=== PATIENT | female | born 1965 | race Caucasian/White ===

== ENCOUNTER 2017-08-14 16:37 | Inpatient (IN) | payer OTHER ==
[2017-08-14 17:10] LABS: ADD MAN DIFF? NO
[2017-08-14 17:18] LABS: BASO # 0.1 x10^3/uL (0.0-0.2); BASO % 1 % (0-3); EOS # 0.1 x10^3/uL (0.0-0.7); EOS % 1 % (0-3); HEMATOCRIT 39.6 % (36.0-47.0); HEMOGLOBIN 13.2 g/dL (12.0-15.5); LYMPH # 1.8 x10^3/uL (1.0-4.8); LYMPH % 14 % (24-48); MEAN CORPUSCULAR HEMOGLOBIN 29 pg (25-35); MEAN CORPUSCULAR HGB CONC 33 g/dL (31-37); MEAN CORPUSCULAR VOLUME 87 fL (79-100); MONO # 0.7 x10^3/uL (0.0-1.1); MONO % 5 % (0-9); NEUT # 10.6 x10^3uL (1.8-7.7); NEUT % 80 % (31-73); RED BLOOD COUNT 4.53 x10^6/uL (3.50-5.40); RED CELL DISTRIBUTION WIDTH 13.7 % (11.5-14.5); WHITE BLOOD COUNT 13.2 x10^3/uL (4.0-11.0)
[2017-08-14 17:20] LABS: BILIRUBIN,URINE SMALL (NEG); CLARITY,URINE CLEAR; COLOR,URINE AMBER; GLUCOSE,URINE NEGATIVE (NEG); NITRITE,URINE NEGATIVE (NEG); PH,URINE 5.5; PROTEIN,URINE 30 mg/dL (NEG-TRACE)
[2017-08-14 17:26] LABS: PLATELET COUNT 271 x10^3/uL (140-400)
[2017-08-14 17:30] LABS: ANION GAP 10 (6-14); BLOOD UREA NITROGEN 15 mg/dL (7-20); BUN/CREATININE RATIO 19 (6-20); CALCIUM 9.7 mg/dL (8.5-10.1); CARBON DIOXIDE 30 mmol/L (21-32); CHLORIDE 104 mmol/L (98-107); CREATININE 0.8 mg/dL (0.6-1.0); GFR 75.3; GLUCOSE 91 mg/dL (70-99); POTASSIUM 3.4 mmol/L (3.5-5.1); SODIUM 144 mmol/L (136-145)
[2017-08-14 17:36] LABS: ALBUMIN/GLOBULIN RATIO 1.1 (1.0-1.7); ALK PHOS 109 U/L (46-116); ALT (SGPT) 14 U/L (14-59); AST (SGOT) 11 U/L (15-37); BACTERIA,URINE MODERATE /HPF (0-FEW); HYALINE CASTS, URINE MODERATE /HPF; LIPASE 58 U/L (73-393); RBC,URINE 0 /HPF (0-2); SQUAMOUS EPITHELIAL CELL,UR MOD /LPF; TOTAL BILIRUBIN 0.6 mg/dL (0.2-1.0); TOTAL PROTEIN 7.7 g/dL (6.4-8.2); WBC,URINE >40 /HPF (0-4)
[2017-08-14 17:39] LABS: TROPONINI < 0.017 ng/mL (0.000-0.055)
[2017-08-14 17:54] LABS: INR 1.1 (0.8-1.1); PROTHROMBIN TIME PATIENT 13.5 SEC (11.7-14.0)
[2017-08-14] MEDS: ONDANSETRON PF 4 MG/2 ML VIAL. IV (18:30)
[2017-08-14] MEDS: IV NORMAL SALINE 1000ML BAG 1,000 ML IV ×2 (18:33→22:04)
[2017-08-14] MEDS: fentaNYL PF VIAL 100 MCG/2 ML VIAL IV ×3 (18:38→23:28)
[2017-08-14] MEDS ORDERED: hydrALAZINE 20 MG/ML VIAL. IVP (19:30)
[2017-08-14] MEDS ORDERED: POTASSIUM CHLORIDE 20MEQ 50 ML IV (19:30)
[2017-08-14] MEDS ORDERED: DOCUSATE SODIUM 100 MG CAPSULE. PO (19:30)
[2017-08-14] MEDS: POTASSIUM CHLORIDE 10 MEQ in IV NORMAL SALINE 100ML 100 ML IV ×2 (21:00→22:04)
[2017-08-14] MEDS: IPRATRPIUM/ALBUTEROL 0.5/2.5MG 3 ML NEBU. NEB (21:40)
[2017-08-14] MEDS: ATORVASTATIN CALCIUM 20 MG TABLET PO (22:20)
[2017-08-14] MEDS: ACETAMINOPHEN 325 MG TABLET. PO (22:20)
[2017-08-14] MEDS: FLUoxetine HCL 20 MG CAPSULE PO (22:20)
[2017-08-14] MEDS: clonazePAM 0.5 MG TABLET PO (22:21)
[2017-08-14] MEDS: PANTOPRAZOLE IV PUSH 40 MG VIAL. IVP (23:26)
[2017-08-14] MEDS: METOPROLOL TART IMMED RELEASE 25 MG TABLET. PO (23:27)
[2017-08-14] MEDS: DEXAMETHASONE 0.1% OPHTH SOLUTION 5ML BOTTLE. OU (23:28)
[2017-08-14] MEDS: MOXIFLOXACIN 0.5% OPHTH SOLUTION 3ML BOTTLE. OU (23:28)
[2017-08-14] MEDS: KETOROLAC TROMETHAMINE 0.5% OPHTH SOLUTION 3ML BOTTLE. OU (23:28)
[2017-08-14] MEDS: CYCLOBENZAPRINE 10 MG TABLET. PO (23:29)
[2017-08-15 04:43] LABS: ADD MAN DIFF? NO
[2017-08-15 04:56] LABS: BASO # 0.1 x10^3/uL (0.0-0.2); BASO % 1 % (0-3); EOS # 0.1 x10^3/uL (0.0-0.7); EOS % 1 % (0-3); HEMATOCRIT 31.5 % (36.0-47.0); HEMOGLOBIN 10.8 g/dL (12.0-15.5); LYMPH # 2.9 x10^3/uL (1.0-4.8); LYMPH % 33 % (24-48); MEAN CORPUSCULAR HEMOGLOBIN 30 pg (25-35); MEAN CORPUSCULAR HGB CONC 34 g/dL (31-37); MEAN CORPUSCULAR VOLUME 88 fL (79-100); MONO # 0.5 x10^3/uL (0.0-1.1); MONO % 6 % (0-9); NEUT # 5.1 x10^3uL (1.8-7.7); NEUT % 59 % (31-73); PLATELET COUNT 194 x10^3/uL (140-400); RED BLOOD COUNT 3.57 x10^6/uL (3.50-5.40); RED CELL DISTRIBUTION WIDTH 13.4 % (11.5-14.5); WHITE BLOOD COUNT 8.7 x10^3/uL (4.0-11.0)
[2017-08-15 05:48] LABS: ANION GAP 6 (6-14); BLOOD UREA NITROGEN 13 mg/dL (7-20); CALCIUM 8.5 mg/dL (8.5-10.1); CARBON DIOXIDE 30 mmol/L (21-32); CHLORIDE 108 mmol/L (98-107); CREATININE 0.7 mg/dL (0.6-1.0); GFR 87.9; GLUCOSE 89 mg/dL (70-99); POTASSIUM 3.7 mmol/L (3.5-5.1); SODIUM 144 mmol/L (136-145)
[2017-08-15] MEDS: SUCRALFATE 1 GM TABLET. PO ×4 (07:30→21:01)
[2017-08-15] MEDS: IPRATRPIUM/ALBUTEROL 0.5/2.5MG 3 ML NEBU. NEB ×4 (07:50→20:00)
[2017-08-15] MEDS: BUDESONIDE 0.5 MG/2 ML NEBU. NEB ×2 (07:50→20:00)
[2017-08-15] MEDS: IV NORMAL SALINE 1000ML BAG 1,000 ML IV (08:50)
[2017-08-15] MEDS ORDERED: NON FORMULARY ITEM (Albuterol Sulfate (Ventolin Hfa Inhaler) 2 PUFF) INH (09:00)
[2017-08-15] MEDS ORDERED: MOMETASONE FUROATE IH (09:00)
[2017-08-15] MEDS: clonazePAM 0.5 MG TABLET PO ×2 (09:16→21:01)
[2017-08-15] MEDS: CYCLOBENZAPRINE 10 MG TABLET. PO ×3 (09:17→21:01)
[2017-08-15] MEDS: METOPROLOL TART IMMED RELEASE 25 MG TABLET. PO ×2 (09:18→21:02)
[2017-08-15] MEDS: LISINOPRIL 20 MG TABLET PO (09:19)
[2017-08-15] MEDS: PANTOPRAZOLE IV PUSH 40 MG VIAL. IVP (09:20)
[2017-08-15] MEDS: NICOTINE 7MG PATCH. TD (09:20)
[2017-08-15] MEDS: fentaNYL PF VIAL 100 MCG/2 ML VIAL IV ×3 (09:23→22:40)
[2017-08-15] MEDS: DEXAMETHASONE 0.1% OPHTH SOLUTION 5ML BOTTLE. OU ×3 (09:40→21:01)
[2017-08-15] MEDS: MOXIFLOXACIN 0.5% OPHTH SOLUTION 3ML BOTTLE. OU ×3 (09:40→21:01)
[2017-08-15] MEDS: KETOROLAC TROMETHAMINE 0.5% OPHTH SOLUTION 3ML BOTTLE. OU ×4 (09:40→21:01)
[2017-08-15] MEDS: HYDROcodone/APAP 5/325MG 1 TAB TABLET PO (13:59)
[2017-08-15] MEDS: ONDANSETRON PF 4 MG/2 ML VIAL. IV ×2 (13:59→21:00)
[2017-08-15] MEDS: BISACODYL 5 MG TABLET.DR. PO ×2 (16:14→17:14)
[2017-08-15] MEDS: MAGNESIUM CITRATE 296 ML SOLUTION. PO (16:15)
[2017-08-15] MEDS: POLYETHYLENE GLYCOL 3350 238 GM POWDER PO (16:15)
[2017-08-15] MEDS: ALBUTEROL SULFATE 2.5 MG/3 ML NEBU. NEB (19:39)
[2017-08-15] MEDS: ATORVASTATIN CALCIUM 20 MG TABLET PO (21:01)
[2017-08-15] MEDS: FLUoxetine HCL 20 MG CAPSULE PO (21:02)
[2017-08-16 03:52] LABS: ADD MAN DIFF? NO
[2017-08-16 03:58] LABS: BASO # 0.1 x10^3/uL (0.0-0.2); BASO % 1 % (0-3); EOS # 0.1 x10^3/uL (0.0-0.7); EOS % 2 % (0-3); HEMATOCRIT 31.4 % (36.0-47.0); HEMOGLOBIN 10.6 g/dL (12.0-15.5); LYMPH # 2.5 x10^3/uL (1.0-4.8); LYMPH % 36 % (24-48); MEAN CORPUSCULAR HEMOGLOBIN 30 pg (25-35); MEAN CORPUSCULAR HGB CONC 34 g/dL (31-37); MEAN CORPUSCULAR VOLUME 88 fL (79-100); MONO # 0.5 x10^3/uL (0.0-1.1); MONO % 7 % (0-9); NEUT # 3.7 x10^3uL (1.8-7.7); NEUT % 54 % (31-73); PLATELET COUNT 206 x10^3/uL (140-400); RED BLOOD COUNT 3.57 x10^6/uL (3.50-5.40); RED CELL DISTRIBUTION WIDTH 13.5 % (11.5-14.5); WHITE BLOOD COUNT 6.9 x10^3/uL (4.0-11.0)
[2017-08-16 04:12] LABS: ANION GAP 6 (6-14); BLOOD UREA NITROGEN 10 mg/dL (7-20); CALCIUM 8.6 mg/dL (8.5-10.1); CARBON DIOXIDE 30 mmol/L (21-32); CHLORIDE 106 mmol/L (98-107); CREATININE 0.7 mg/dL (0.6-1.0); GFR 87.9; GLUCOSE 87 mg/dL (70-99); POTASSIUM 3.6 mmol/L (3.5-5.1); SODIUM 142 mmol/L (136-145)
[2017-08-16] MEDS: SUCRALFATE 1 GM TABLET. PO ×4 (07:30→20:56)
[2017-08-16] MEDS: BUDESONIDE 0.5 MG/2 ML NEBU. NEB ×2 (07:33→19:20)
[2017-08-16] MEDS: IPRATRPIUM/ALBUTEROL 0.5/2.5MG 3 ML NEBU. NEB ×3 (07:34→19:20)
[2017-08-16] MEDS: CYCLOBENZAPRINE 10 MG TABLET. PO ×3 (09:00→20:56)
[2017-08-16] MEDS: KETOROLAC TROMETHAMINE 0.5% OPHTH SOLUTION 3ML BOTTLE. OU ×4 (09:08→20:58)
[2017-08-16] MEDS: DEXAMETHASONE 0.1% OPHTH SOLUTION 5ML BOTTLE. OU ×3 (09:08→20:59)
[2017-08-16] MEDS: LISINOPRIL 20 MG TABLET PO (09:08)
[2017-08-16] MEDS: MOXIFLOXACIN 0.5% OPHTH SOLUTION 3ML BOTTLE. OU ×3 (09:08→20:59)
[2017-08-16] MEDS: METOPROLOL TART IMMED RELEASE 25 MG TABLET. PO ×2 (09:08→20:57)
[2017-08-16] MEDS: clonazePAM 0.5 MG TABLET PO ×2 (09:08→20:55)
[2017-08-16] MEDS: IV NORMAL SALINE 1000ML BAG 1,000 ML IV ×3 (11:30→21:01)
[2017-08-16] MEDS: fentaNYL PF VIAL 100 MCG/2 ML VIAL IV ×3 (11:53→23:49)
[2017-08-16] MEDS: IV RINGERS,LACTATED 1000ML 1,000 ML IV ×2 (12:24→17:04)
[2017-08-16] MEDS ORDERED: LIDOCAINE 1% PF 2 ML VIAL. ID (12:30)
[2017-08-16] MEDS ORDERED: fentaNYL PF VIAL 100 MCG/2 ML VIAL IV ×2 (12:30)
[2017-08-16] MEDS ORDERED: MIDAZOLAM HCL/PF 2 MG/2 ML VIAL. IV (12:30)
[2017-08-16] MEDS ORDERED: PROPOFOL 40 ML IV (12:35)
[2017-08-16] MEDS ORDERED: LIDOCAINE 2% PF Vial for OR 5 ML VIAL. (12:36)
[2017-08-16] MEDS: HYDROcodone/APAP 5/325MG 1 TAB TABLET PO ×2 (14:16→20:55)
[2017-08-16] MEDS: PANTOPRAZOLE 40 MG TABLET.DR. PO (14:17)
[2017-08-16] MEDS: NICOTINE 7MG PATCH. TD (14:17)
[2017-08-16] MEDS: ATORVASTATIN CALCIUM 20 MG TABLET PO (20:55)
[2017-08-16] MEDS: FLUoxetine HCL 20 MG CAPSULE PO (20:56)
[2017-08-16] MEDS: ONDANSETRON PF 4 MG/2 ML VIAL. IV (20:58)
[2017-08-17] MEDS: BUDESONIDE 0.5 MG/2 ML NEBU. NEB ×2 (06:14→20:00)
[2017-08-17] MEDS: IPRATRPIUM/ALBUTEROL 0.5/2.5MG 3 ML NEBU. NEB ×4 (06:14→20:00)
[2017-08-17] MEDS: SUCRALFATE 1 GM TABLET. PO ×4 (07:30→21:39)
[2017-08-17 08:37] LABS: % SAT IRON 28 % (15-34); IRON,SERUM 76 ug/dL (50-170)
[2017-08-17] MEDS: fentaNYL PF VIAL 100 MCG/2 ML VIAL IV ×3 (08:41→21:49)
[2017-08-17] MEDS: BARIUM SULFATE 60% 355 ML SUSP PO (09:19)
[2017-08-17 09:38] LABS: VITAMIN-B12 250 pg/mL (247-911)
[2017-08-17 09:38] LABS: FOLATE 13.22 ng/ml (3.2-20.0)
[2017-08-17] MEDS: KETOROLAC TROMETHAMINE 0.5% OPHTH SOLUTION 3ML BOTTLE. OU ×4 (13:00→21:42)
[2017-08-17] MEDS: DEXAMETHASONE 0.1% OPHTH SOLUTION 5ML BOTTLE. OU ×3 (13:17→21:42)
[2017-08-17] MEDS: MOXIFLOXACIN 0.5% OPHTH SOLUTION 3ML BOTTLE. OU ×3 (13:17→21:42)
[2017-08-17] MEDS: NICOTINE 7MG PATCH. TD (13:18)
[2017-08-17] MEDS: LISINOPRIL 20 MG TABLET PO (13:19)
[2017-08-17] MEDS: clonazePAM 0.5 MG TABLET PO ×2 (13:20→21:41)
[2017-08-17] MEDS: CYCLOBENZAPRINE 10 MG TABLET. PO ×3 (13:20→21:41)
[2017-08-17] MEDS: METOPROLOL TART IMMED RELEASE 25 MG TABLET. PO ×2 (13:21→21:00)
[2017-08-17] MEDS: PANTOPRAZOLE 40 MG TABLET.DR. PO (13:21)
[2017-08-17] MEDS: PHENAZOPYRIDINE 200 MG TABLET. PO (13:22)
[2017-08-17] MEDS: HYDROcodone/APAP 5/325MG 1 TAB TABLET PO (13:23)
[2017-08-17] MEDS: IV NORMAL SALINE 1000ML BAG 1,000 ML IV (15:31)
[2017-08-17] MEDS: ONDANSETRON PF 4 MG/2 ML VIAL. IV ×2 (15:32→21:49)
[2017-08-17] MEDS: LACTOBACILLUS RHAMNOSUS GG 1 CAPSULE. PO ×2 (18:04→21:40)
[2017-08-17] MEDS: diphenhydrAMINE HCL 25 MG CAPSULE PO (21:39)
[2017-08-17] MEDS: ATORVASTATIN CALCIUM 20 MG TABLET PO (21:40)
[2017-08-17] MEDS: FLUoxetine HCL 20 MG CAPSULE PO (21:40)
[2017-08-18] MEDS: ONDANSETRON PF 4 MG/2 ML VIAL. IV ×3 (04:19→16:39)
[2017-08-18] MEDS: fentaNYL PF VIAL 100 MCG/2 ML VIAL IV ×4 (04:20→21:59)
[2017-08-18] MEDS: IV NORMAL SALINE 1000ML BAG 1,000 ML IV ×2 (05:52→16:50)
[2017-08-18] MEDS: IPRATRPIUM/ALBUTEROL 0.5/2.5MG 3 ML NEBU. NEB ×4 (07:32→20:42)
[2017-08-18] MEDS: BUDESONIDE 0.5 MG/2 ML NEBU. NEB ×2 (07:32→20:42)
[2017-08-18] MEDS: PANTOPRAZOLE 40 MG TABLET.DR. PO (08:24)
[2017-08-18] MEDS: SUCRALFATE 1 GM TABLET. PO ×4 (08:24→22:00)
[2017-08-18] MEDS: NICOTINE 7MG PATCH. TD (11:01)
[2017-08-18] MEDS: METOPROLOL TART IMMED RELEASE 25 MG TABLET. PO ×2 (11:02→22:01)
[2017-08-18] MEDS: LACTOBACILLUS RHAMNOSUS GG 1 CAPSULE. PO ×2 (11:02→22:00)
[2017-08-18] MEDS: CYCLOBENZAPRINE 10 MG TABLET. PO ×3 (11:02→22:02)
[2017-08-18] MEDS: clonazePAM 0.5 MG TABLET PO ×2 (11:03→22:02)
[2017-08-18] MEDS: LISINOPRIL 20 MG TABLET PO (11:03)
[2017-08-18] MEDS: DEXAMETHASONE 0.1% OPHTH SOLUTION 5ML BOTTLE. OU ×3 (11:03→22:04)
[2017-08-18] MEDS: KETOROLAC TROMETHAMINE 0.5% OPHTH SOLUTION 3ML BOTTLE. OU ×4 (11:03→22:05)
[2017-08-18] MEDS: MOXIFLOXACIN 0.5% OPHTH SOLUTION 3ML BOTTLE. OU ×3 (11:04→22:04)
[2017-08-18] MEDS: TAMSULOSIN 0.4 MG CAP.ER.24H. PO (11:46)
[2017-08-18] MEDS: HYDROcodone/APAP 5/325MG 1 TAB TABLET PO (14:26)
[2017-08-18] MEDS ORDERED: CONTRAST GIVEN MC (15:30)
[2017-08-18] MEDS: IOHEXOL 300 MG/ML 100ML VIAL. IV (15:45)
[2017-08-18] MEDS: ATORVASTATIN CALCIUM 20 MG TABLET PO (21:59)
[2017-08-18] MEDS: FLUoxetine HCL 20 MG CAPSULE PO (22:01)
[2017-08-19] MEDS: ONDANSETRON PF 4 MG/2 ML VIAL. IV (05:00)
[2017-08-19] MEDS: fentaNYL PF VIAL 100 MCG/2 ML VIAL IV (06:30)
[2017-08-19] MEDS: IPRATRPIUM/ALBUTEROL 0.5/2.5MG 3 ML NEBU. NEB ×2 (07:26→11:58)
[2017-08-19] MEDS: PANTOPRAZOLE 40 MG TABLET.DR. PO (07:30)
[2017-08-19] MEDS: SUCRALFATE 1 GM TABLET. PO ×2 (07:30→11:30)
[2017-08-19] MEDS: BUDESONIDE 0.5 MG/2 ML NEBU. NEB (08:00)
[2017-08-19] MEDS: DEXAMETHASONE 0.1% OPHTH SOLUTION 5ML BOTTLE. OU (09:00)
[2017-08-19] MEDS: METOPROLOL TART IMMED RELEASE 25 MG TABLET. PO (09:00)
[2017-08-19] MEDS: NICOTINE 7MG PATCH. TD (09:00)
[2017-08-19] MEDS: TAMSULOSIN 0.4 MG CAP.ER.24H. PO (09:00)
[2017-08-19] MEDS: LISINOPRIL 20 MG TABLET PO (09:00)
[2017-08-19] MEDS: clonazePAM 0.5 MG TABLET PO (09:00)
[2017-08-19] MEDS: LACTOBACILLUS RHAMNOSUS GG 1 CAPSULE. PO (09:00)
[2017-08-19] MEDS: CYCLOBENZAPRINE 10 MG TABLET. PO (09:00)
[2017-08-19] MEDS: MOXIFLOXACIN 0.5% OPHTH SOLUTION 3ML BOTTLE. OU (09:00)
[2017-08-19] MEDS: KETOROLAC TROMETHAMINE 0.5% OPHTH SOLUTION 3ML BOTTLE. OU (09:00)
[2017-08-19] MEDS ORDERED: BISACODYL 5 MG TABLET.DR. PO (11:00)
[2017-08-19] MEDS: POLYETHYLENE GLYCOL 3350 17 GM PACKET. PO (12:00)
[2017-08-19] MEDS: VITAMIN B12,B9,B6 COMPLEX 1 TABLET. PO (12:00)
[2017-08-19] MEDS: CYANOCOBALAMIN (VITAMIN B-12) 1,000 MCG/ML VIAL IM (12:00)
== END 2017-08-19 14:00 | disposition home or self-care (01) | DRG 393 ==
LOC: ER 16:37 → 2 NORTH 18:33
PROC: 0DJD8ZZ Inspection of Lower Intestinal Tract, Via Natural or Artificial Opening Endoscopic (ICD-10-PCS; principal; 2017-08-16 12:30)
DX: K64.8 Other hemorrhoids (principal); K25.4 Chronic or unspecified gastric ulcer with hemorrhage; E66.01 Morbid (severe) obesity due to excess calories; Q61.2 Polycystic kidney, adult type; Z68.41 Body mass index [BMI] 40.0-44.9, adult; N39.0 Urinary tract infection, site not specified; K57.90 Diverticulosis of intestine, part unspecified, without perforation or abscess without bleeding; E87.6 Hypokalemia; B96.89 Other specified bacterial agents as the cause of diseases classified elsewhere; F17.210 Nicotine dependence, cigarettes, uncomplicated; G89.29 Other chronic pain; I10 Essential (primary) hypertension; I25.10 Atherosclerotic heart disease of native coronary artery without angina pectoris; J44.9 Chronic obstructive pulmonary disease, unspecified; K21.0 Gastro-esophageal reflux disease with esophagitis; K59.00 Constipation, unspecified; M79.7 Fibromyalgia; R31.0 Gross hematuria; Z79.82 Long term (current) use of aspirin; Z82.0 Family history of epilepsy and other diseases of the nervous system; Z82.3 Family history of stroke; Z82.49 Family history of ischemic heart disease and other diseases of the circulatory system; I25.2 Old myocardial infarction; Z82.5 Family history of asthma and other chronic lower respiratory diseases; Z87.11 Personal history of peptic ulcer disease; Z87.19 Personal history of other diseases of the digestive system; Z87.440 Personal history of urinary (tract) infections; Z88.0 Allergy status to penicillin; Z90.49 Acquired absence of other specified parts of digestive tract; Z95.5 Presence of coronary angioplasty implant and graft; Z98.51 Tubal ligation status; Z88.5 Allergy status to narcotic agent; Z88.8 Allergy status to other drugs, medicaments and biological substances; Z88.1 Allergy status to other antibiotic agents; Z91.012 Allergy to eggs
CPT/HCPCS: 36415; 71045; 74018; 74176; 74250; 78264; 80048; 80053; 81001; 82607; 82746; 83540; 83550; 83690; 84484; 85025; 85610; 86850; 86900; 86901; 87086; 87186; 93005; 93976; 94640; 96374; 96375; 99285; 99285-25; 99406; A9541; C9113; J1956; J2405; J2704; J3010; J7030; J7120; J7613; J7620; J7626; Q0163; Q9967

== ENCOUNTER 2017-09-23 22:44 | Emergency (ER) | payer SELFPAY, OTHER ==
[2017-09-23] MEDS: HYDROcodone/APAP 5/325MG 1 TAB TABLET PO (23:22)
== END 2017-09-23 23:56 | disposition home or self-care (01) ==
LOC: ER 23:56
DX: S43.401A Unspecified sprain of right shoulder joint, initial encounter (principal); M79.621 Pain in right upper arm; J45.909 Unspecified asthma, uncomplicated; M79.7 Fibromyalgia; I10 Essential (primary) hypertension; I25.2 Old myocardial infarction; Z88.0 Allergy status to penicillin; Z90.49 Acquired absence of other specified parts of digestive tract; Z88.1 Allergy status to other antibiotic agents; Z88.5 Allergy status to narcotic agent; Z91.012 Allergy to eggs; Z98.51 Tubal ligation status; W18.39XA Other fall on same level, initial encounter; Y93.89 Activity, other specified; Y92.89 Other specified places as the place of occurrence of the external cause; Y99.8 Other external cause status
CPT/HCPCS: 73030; 73060; 99284

== ENCOUNTER 2017-12-28 20:53 | Inpatient (IN) | payer BC ==
[2017-12-28 21:25] LABS: ADD MAN DIFF? NO
[2017-12-28] MEDS: fentaNYL PF VIAL 100 MCG/2 ML VIAL IV (21:27)
[2017-12-28 21:28] LABS: BASO # 0.1 x10^3/uL (0.0-0.2); BASO % 1 % (0-3); EOS # 0.2 x10^3/uL (0.0-0.7); EOS % 1 % (0-3); HEMATOCRIT 38.7 % (36.0-47.0); HEMOGLOBIN 12.9 g/dL (12.0-15.5); LYMPH # 3.3 x10^3/uL (1.0-4.8); LYMPH % 25 % (24-48); MEAN CORPUSCULAR HEMOGLOBIN 29 pg (25-35); MEAN CORPUSCULAR HGB CONC 33 g/dL (31-37); MEAN CORPUSCULAR VOLUME 87 fL (79-100); MONO # 0.8 x10^3/uL (0.0-1.1); MONO % 6 % (0-9); NEUT # 9.1 x10^3uL (1.8-7.7); NEUT % 67 % (31-73); PLATELET COUNT 302 x10^3/uL (140-400); RED BLOOD COUNT 4.44 x10^6/uL (3.50-5.40); RED CELL DISTRIBUTION WIDTH 14.2 % (11.5-14.5); WHITE BLOOD COUNT 13.5 x10^3/uL (4.0-11.0)
[2017-12-28 21:36] LABS: INR 0.9 (0.8-1.1)
[2017-12-28] MEDS: PROCHLORPERAZINE 10 MG/2 ML VIAL. IV (22:12)
[2017-12-28 22:27] LABS: ANION GAP 7 (6-14); BLOOD UREA NITROGEN 17 mg/dL (7-20); BUN/CREATININE RATIO 19 (6-20); CARBON DIOXIDE 33 mmol/L (21-32); CHLORIDE 101 mmol/L (98-107); CREATININE 0.9 mg/dL (0.6-1.0); GFR 65.5; GLUCOSE 98 mg/dL (70-99); POTASSIUM 4.4 mmol/L (3.5-5.1); SODIUM 141 mmol/L (136-145)
[2017-12-28 22:34] LABS: ALBUMIN 3.5 g/dL (3.4-5.0); ALK PHOS 110 U/L (46-116); ALT (SGPT) 21 U/L (14-59); AST (SGOT) 12 U/L (15-37); TOTAL BILIRUBIN 0.3 mg/dL (0.2-1.0)
[2017-12-28 22:35] LABS: TROPONINI < 0.017 ng/mL (0.000-0.055)
[2017-12-28 22:38] LABS: NT-PRO BNP 585 pg/mL (0-124)
[2017-12-29] MEDS: fentaNYL PF VIAL 100 MCG/2 ML VIAL IV ×4 (00:32→22:07)
[2017-12-29 02:23] LABS: TROPONINI < 0.017 ng/mL (0.000-0.055)
[2017-12-29 06:37] LABS: TROPONINI < 0.017 ng/mL (0.000-0.055)
[2017-12-29 07:48] LABS: CHOLESTEROL 197 mg/dL (0-200); CHOLESTEROL/HDL RATIO 3.2; HDLC 62 mg/dL (40-60); LDLC 118 mg/dL (0-100); NON-HDL CHOLESTEROL 135 mg/dL (0-129); TRIGLYCERIDES 85 mg/dL (0-150); VLDLC 17 mg/dL (0-40)
[2017-12-29] MEDS: LIDOCAINE (700MG/PATCH) PATCH. TD (10:49)
[2017-12-29] MEDS: BUPIVACAINE MPF 0.25% 10 ML VIAL. IJ (13:30)
[2017-12-29] MEDS: methylPREDNISolone ACETATE 40 MG/ML VIAL. INJ ×2 (13:30)
[2017-12-29] MEDS: HYDROcodone/APAP 10/325 1 TAB TABLET PO (18:24)
[2017-12-29] MEDS: PATCH REMOVAL. MC (21:00)
[2017-12-29 21:32] LABS: POC GLUCOSE 119 mg/dL (70-99)
[2017-12-29] MEDS: NITROGLYCERIN SUBLINGUAL 0.4 MG BOTTLE OF 25. SL ×2 (21:33→21:45)
[2017-12-29] MEDS: LORazepam 0.5 MG TABLET PO (22:00)
[2017-12-30] MEDS: HYDROcodone/APAP 10/325 1 TAB TABLET PO ×2 (03:36→09:16)
[2017-12-30 03:44] LABS: ADD MAN DIFF? NO
[2017-12-30 03:49] LABS: BASO % 0 % (0-3); EOS % 0 % (0-3); HEMATOCRIT 36.3 % (36.0-47.0); HEMOGLOBIN 12.2 g/dL (12.0-15.5); LYMPH # 1.4 x10^3/uL (1.0-4.8); LYMPH % 12 % (24-48); MEAN CORPUSCULAR HEMOGLOBIN 29 pg (25-35); MEAN CORPUSCULAR HGB CONC 34 g/dL (31-37); MEAN CORPUSCULAR VOLUME 87 fL (79-100); MONO # 0.5 x10^3/uL (0.0-1.1); MONO % 4 % (0-9); NEUT # 10.5 x10^3uL (1.8-7.7); NEUT % 84 % (31-73); PLATELET COUNT 283 x10^3/uL (140-400); RED BLOOD COUNT 4.17 x10^6/uL (3.50-5.40); WHITE BLOOD COUNT 12.4 x10^3/uL (4.0-11.0)
[2017-12-30 04:05] LABS: ALBUMIN 3.5 g/dL (3.4-5.0); ALBUMIN/GLOBULIN RATIO 1.1 (1.0-1.7); ALK PHOS 117 U/L (46-116); ALT (SGPT) 19 U/L (14-59); ANION GAP 7 (6-14); AST (SGOT) 10 U/L (15-37); BLOOD UREA NITROGEN 19 mg/dL (7-20); BUN/CREATININE RATIO 21 (6-20); CALCIUM 9.3 mg/dL (8.5-10.1); CARBON DIOXIDE 30 mmol/L (21-32); CHLORIDE 100 mmol/L (98-107); CREATININE 0.9 mg/dL (0.6-1.0); GFR 65.5; GLUCOSE 132 mg/dL (70-99); POTASSIUM 5.1 mmol/L (3.5-5.1); SODIUM 137 mmol/L (136-145); TOTAL BILIRUBIN 0.4 mg/dL (0.2-1.0); TOTAL PROTEIN 6.8 g/dL (6.4-8.2)
[2017-12-30 04:13] LABS: THYROID STIM HORMONE (TSH) 1.112 uIU/mL (0.358-3.74)
[2017-12-30] MEDS: LIDOCAINE (700MG/PATCH) PATCH. TD (08:10)
== END 2017-12-30 10:49 | disposition home or self-care (01) | DRG 206 ==
LOC: ER 20:53 → 2 SOUTH 22:45
DX: M94.0 Chondrocostal junction syndrome [Tietze] (principal); Z68.41 Body mass index [BMI] 40.0-44.9, adult; E11.9 Type 2 diabetes mellitus without complications; I25.10 Atherosclerotic heart disease of native coronary artery without angina pectoris; I10 Essential (primary) hypertension; E66.9 Obesity, unspecified; F41.9 Anxiety disorder, unspecified; G43.909 Migraine, unspecified, not intractable, without status migrainosus; G89.29 Other chronic pain; M54.5 Low back pain; J44.9 Chronic obstructive pulmonary disease, unspecified; K21.9 Gastro-esophageal reflux disease without esophagitis; M70.61 Trochanteric bursitis, right hip; M70.62 Trochanteric bursitis, left hip; M17.10 Unilateral primary osteoarthritis, unspecified knee; W19.XXXA Unspecified fall, initial encounter; N64.4 Mastodynia; R29.6 Repeated falls; Z87.891 Personal history of nicotine dependence; Z82.49 Family history of ischemic heart disease and other diseases of the circulatory system; Z80.9 Family history of malignant neoplasm, unspecified; Z90.49 Acquired absence of other specified parts of digestive tract; I25.2 Old myocardial infarction; Z98.891 History of uterine scar from previous surgery; Z98.51 Tubal ligation status; Z88.5 Allergy status to narcotic agent; Z88.0 Allergy status to penicillin; Z88.1 Allergy status to other antibiotic agents; Z91.012 Allergy to eggs; Y93.89 Activity, other specified; Y92.89 Other specified places as the place of occurrence of the external cause; Y99.8 Other external cause status
CPT/HCPCS: 36415; 71045; 73565; 76641; 80053; 80061; 82962; 83880; 84443; 84484; 85025; 85610; 93005; 96374; 96375; 99285; 99285-25; J0780; J1030; J2060; J3010; J3490

== ENCOUNTER 2018-01-28 14:16 | Emergency (ER) | payer BC | END 2018-01-28 15:19 | disposition home or self-care (01) | LOC: ER 14:16 | DX: G89.29 Other chronic pain (principal); M25.551 Pain in right hip; M25.552 Pain in left hip; M25.562 Pain in left knee; M25.561 Pain in right knee; J44.9 Chronic obstructive pulmonary disease, unspecified; I10 Essential (primary) hypertension; I25.2 Old myocardial infarction; Z90.49 Acquired absence of other specified parts of digestive tract; Z98.51 Tubal ligation status; Z88.0 Allergy status to penicillin; Z88.1 Allergy status to other antibiotic agents; Z88.5 Allergy status to narcotic agent; Z91.012 Allergy to eggs | CPT/HCPCS: 99283 ==

== ENCOUNTER 2018-02-19 21:58 | Emergency (ER) | payer BC ==
[~2018-02-19] VITALS: Ht 160 cm; Wt 102.1 kg
[~2018-02-19 21:58] MED LIST: ASPI-482 PO; ATOR20TA58 PO; CLIN150C14 PO; CLON0.5T PO; CYCL5TAB PO; DIAZ5TAB4 PO; FLUO20CA16 PO; HYDR-2762 PO; HYDR-2766 PO; HYDR-971 PO; IBUP-1007 PO; LIDO700A39 TD; LISI-334 PO; LISI10TA2 PO; LOPE1LIQ34 PO; LORA0.5T96 PO; METO25TA4 PO; MOME13HF3 IH; MOXI3DRO2 EACHEYE; NEPA3DRO EACHEYE; NICO1PAT27 TD; Nicotine TD; PANT40TA5 PO; PHEN-443 PO; PRED5DRO16 EACHEYE; SUCR1TAB PO; TRAM50TA PO; VENTOLIN HFA18 GM INH
[2018-02-19] MEDS ORDERED: ASPIRIN CHEWABLE 81 MG TABLET. PO ONE (22:15)
[2018-02-19] MEDS ORDERED: NITROGLYCERIN SUBLINGUAL 0.4 MG BOTTLE OF 25. SL PRN (22:15)
[2018-02-19] MEDS ORDERED: IV NORMAL SALINE 1000ML BAG 1,000 ML IV SCH (22:15)
--- NOTE | 2018-02-19 22:21 | PHYS DOC ---
Past Medical History Past Medical History: Asthma, COPD, Fibromyalgia, GI Bleed, Hypertension, [place] Additional Past Medical Histor: ulcer, DDD, back pain Past Surgical History: Cholecystectomy, , Tubal ligation, Other Additional Past Surgical Histo: Hernia repair x3. Coronary Angiogram x3- no stents (clean) Alcohol Use: Rarely Drug Use: None Adult General Chief Complaint Chief Complaint: CHEST PAIN HPI HPI Patient is a 52-year-old female who presents with complaint of severe midsternal chest pain that started at about 6:30 PM today. Patient states that she was just sitting and watching TV at onset of pain. She describes the pain as a heavy pressure like an elephant sitting on her chest. She states that the pain radiates up into her left jaw and into her left shoulder. She rates pain at a 9 out of 10. Patient states that she has a long cardiac history and has had a total of 4 MIs. She states that she is managed by Dr. Chapa. She does admit to having had nausea and vomiting earlier and is feeling nauseated currently. She denies any diaphoresis. Patient states the pain is worsened with exertion. She states that nothing is improving her pain. She does admit to shortness of breath associated with the chest pain. Review of Systems Review of Systems Constitutional: Denies fever or chills [] Respiratory: Complains of shortness of breath without cough[] Cardiovascular: Complains of chest pain[] GI: Complains of nausea and vomiting without abdominal pain[] Musculoskeletal: Denies back pain or joint pain [] All other systems were reviewed and found to be within normal limits, except as documented in this note. Current Medications Current Medications Current Medications Medications (Trade) Dose Ordered Sig/Maggie Start Time Stop Time Status Last Admin Dose Admin Aspirin (Children'S Aspirin) 324 mg 1X ONCE 02/19/18 22:15 02/19/18 22:17 DC 02/19/18 22:32 324 MG Fentanyl Citrate (Fentanyl 2ml Vial) 50 mcg 1X ONCE 02/19/18 23:45 02/19/18 23:46 DC 02/19/18 23:43 50 MCG Ketorolac Tromethamine (Toradol) 15 mg 1X ONCE 02/20/18 01:15 02/20/18 01:16 DC 02/20/18 01:16 15 MG Nitroglycerin (Nitrostat) 0.4 mg PRN Q5MIN PRN 02/19/18 22:15 02/20/18 22:14 02/19/18 22:32 0.4 MG Ondansetron HCl (Zofran) 4 mg 1X ONCE 02/20/18 00:30 02/20/18 00:38 DC 02/20/18 00:36 4 MG Sodium Chloride 1,000 ml @ 1,000 mls/hr Q1H 02/19/18 22:15 02/19/18 23:14 DC 02/19/18 22:33 1,000 MLS/HR Allergies Allergies Allergies Coded Allergies Type Severity Reaction Last Updated Verified Penicillins Allergy Intermediate hives 06/26/15 Yes amoxicillin Allergy Intermediate rash 06/26/15 Yes ceftriaxone Allergy Intermediate hives 06/26/15 Yes codeine Allergy Intermediate hives 12/29/17 Yes doxycycline Allergy Intermediate rash 06/26/15 Yes egg Allergy Intermediate hives 06/26/15 Yes morphine Allergy Intermediate rash 12/29/17 Yes Physical Exam Physical Exam Constitutional: Well developed, well nourished, appears uncomfortable. [] HENT: Normocephalic, atraumatic, bilateral external ears normal, oropharynx moist, no oral exudates, nose normal. [] Eyes: PERRLA, EOMI, conjunctiva normal, no discharge. [] Neck: Normal range of motion, no tenderness, supple, no stridor. [] Cardiovascular: Mildly tachycardic rate with regular rhythm[] Lungs & Thorax: Bilateral breath sounds clear to auscultation [] Abdomen: Bowel sounds normal, soft, no tenderness. [] Skin: Warm, dry, no erythema, no rash. [] Extremities: No tenderness, no cyanosis, no clubbing, ROM intact, with nonpitting edema. [] Neurologic: Alert and oriented X 3, normal motor function, normal sensory function, no focal deficits noted. [] Current Patient Data Vital Signs Vital Signs Date Time Temp Pulse Resp B/P (MAP) Pulse Ox O2 Delivery O2 Flow Rate FiO2 02/20/18 00:37 87 15 119/55 (76) 97 Room Air 02/19/18 22:00 99.1 99.1 Lab Values Laboratory Tests Test 02/19/18 22:10 02/20/18 00:40 White Blood Count 8.9 x10^3/uL (4.0-11.0) Red Blood Count 3.76 x10^6/uL (3.50-5.40) Hemoglobin 11.0 g/dL (12.0-15.5) L Hematocrit 32.6 % (36.0-47.0) L Mean Corpuscular Volume 87 fL (79-100) Mean Corpuscular Hemoglobin 29 pg (25-35) Mean Corpuscular Hemoglobin Concent 34 g/dL (31-37) Red Cell Distribution Width 13.8 % (11.5-14.5) Platelet Count 256 x10^3/uL (140-400) Neutrophils (%) (Auto) 63 % (31-73) Lymphocytes (%) (Auto) 25 % (24-48) Monocytes (%) (Auto) 10 % (0-9) H Eosinophils (%) (Auto) 2 % (0-3) Basophils (%) (Auto) 1 % (0-3) Neutrophils # (Auto) 5.6 x10^3uL (1.8-7.7) Lymphocytes # (Auto) 2.2 x10^3/uL (1.0-4.8) Monocytes # (Auto) 0.9 x10^3/uL (0.0-1.1) Eosinophils # (Auto) 0.2 x10^3/uL (0.0-0.7) Basophils # (Auto) 0.1 x10^3/uL (0.0-0.2) Sodium Level 137 mmol/L (136-145) Potassium Level 3.8 mmol/L (3.5-5.1) Chloride Level 104 mmol/L (98-107) Carbon Dioxide Level 27 mmol/L (21-32) Anion Gap 6 (6-14) Blood Urea Nitrogen 9 mg/dL (7-20) Creatinine 0.7 mg/dL (0.6-1.0) Estimated GFR (Cockcroft-Gault) 87.5 BUN/Creatinine Ratio 13 (6-20) Glucose Level 99 mg/dL (70-99) Calcium Level 8.8 mg/dL (8.5-10.1) Magnesium Level 1.6 mg/dL (1.8-2.4) L Total Bilirubin 0.2 mg/dL (0.2-1.0) Aspartate Amino Transferase (AST) 12 U/L (15-37) L Alanine Aminotransferase (ALT) 17 U/L (14-59) Alkaline Phosphatase 94 U/L (46-116) Troponin I Quantitative < 0.017 ng/mL (0.000-0.055) < 0.017 ng/mL (0.000-0.055) YH-Awj-F-Type Natriuretic Peptide 296 pg/mL (0-124) H Total Protein 6.1 g/dL (6.4-8.2) L Albumin 2.9 g/dL (3.4-5.0) L Albumin/Globulin Ratio 0.9 (1.0-1.7) L Laboratory Tests 02/19/18 22:10 Laboratory Tests 02/19/18 22:10 EKG EKG [] Interpretation Time: EKG demonstrates sinus tachycardia with rate of 102. There are nonspecific T/ST changes Radiology/Procedures Radiology/Procedures [] Impressions: Chest x-ray demonstrates no acute process. Course & Med Decision Making Course & Med Decision Making Pertinent Labs and Imaging studies reviewed. (See chart for details) Patient's workup was discussed with Dr. Chapa and he indicates that patient has been admitted a few times over the last couple of months. He indicates that patient would be safe for discharge home if second troponin returns normal. Dragon Disclaimer Dragon Disclaimer This electronic medical record was generated, in whole or in part, using a voice recognition dictation system. Departure Departure Impression: Primary Impression: Chest pain Disposition: HOME, SELF-CARE Condition: STABLE Referrals: PK JAQUEZ MD (PCP) Patient Instructions: Chest Pain (Nonspecific) Additional Instructions: Follow-up with Dr. Chapa this coming week. Problem Qualifiers Primary Impression: Chest pain Chest pain type: unspecified Qualified Codes: R07.9 - Chest pain, unspecified ZAYNAB SABILLON Jr. DO Feb 19, 2018 22:21
[2018-02-19 22:25] LABS: BASO # 0.1 x10^3/uL (0.0-0.2); BASO % 1 % (0-3); EOS # 0.2 x10^3/uL (0.0-0.7); EOS % 2 % (0-3); HEMATOCRIT 32.6 % (36.0-47.0); LYMPH # 2.2 x10^3/uL (1.0-4.8); LYMPH % 25 % (24-48); MEAN CORPUSCULAR HEMOGLOBIN 29 pg (25-35); MEAN CORPUSCULAR HGB CONC 34 g/dL (31-37); MEAN CORPUSCULAR VOLUME 87 fL (79-100); MONO # 0.9 x10^3/uL (0.0-1.1); MONO % 10 % (0-9); NEUT # 5.6 x10^3uL (1.8-7.7); NEUT % 63 % (31-73); PLATELET COUNT 256 x10^3/uL (140-400); RED BLOOD COUNT 3.76 x10^6/uL (3.50-5.40); RED CELL DISTRIBUTION WIDTH 13.8 % (11.5-14.5); WHITE BLOOD COUNT 8.9 x10^3/uL (4.0-11.0)
[2018-02-19] MEDS ORDERED: ONDANSETRON PF 4 MG/2 ML VIAL. IV ONE (22:30)
[2018-02-19] MEDS: fentaNYL PF VIAL 100 MCG/2 ML VIAL IV PRN ×2 (22:33→22:58)
[2018-02-19 22:34] LABS: CALCIUM 8.8 mg/dL (8.5-10.1); CREATININE 0.7 mg/dL (0.6-1.0); GFR 87.5; POTASSIUM 3.8 mmol/L (3.5-5.1)
[2018-02-19 22:40] LABS: ALBUMIN 2.9 g/dL (3.4-5.0); ALBUMIN/GLOBULIN RATIO 0.9 (1.0-1.7); MAGNESIUM 1.6 mg/dL (1.8-2.4); TOTAL BILIRUBIN 0.2 mg/dL (0.2-1.0); TOTAL PROTEIN 6.1 g/dL (6.4-8.2)
[2018-02-19] MEDS ORDERED: fentaNYL PF VIAL 100 MCG/2 ML VIAL IV ONE (23:45)
[2018-02-20] MEDS ORDERED: ONDANSETRON PF 4 MG/2 ML VIAL. IV ONE (00:30)
[2018-02-20] MEDS ORDERED: KETOROLAC 15 MG/ML VIAL. IV ONE (01:15)
[2018-02-20 01:58] VITALS: BP 120/58
--- NOTE | 2018-02-20 06:43 | EKG ---
[facility] [address] [place] [address] Test Date: 2018-02-19 Test Time: 22:01:18 Pat Name: DOMINGO BATES Department: Room: Gender: F Night Clerk Auditor: : 1965 Requested By: ZAYNAB SABILLON Order Number: [id number] Reading MD: Measurements Intervals [place] Rate: 102 P: 38 [place]: 118 QRS: 28 QRSD: 82 T: 27 QT: 326 QTc: 429 Interpretive Statements SINUS TACHYCARDIA LEFT ATRIAL ABNORMALITY ABNORMAL ECG RI6.01 No previous ECG available for comparison
--- NOTE | 2018-02-20 08:25 | RAD ---
EXAM:PORTABLE CHEST 1V DATE: 02/19/2018 10:13 PM CLINICAL INDICATION: chest pain today COMPARISON: 12/28/2017, 08/14/2017 FINDINGS: The heart is not enlarged. Mediastinal and hilar contours are normal. No focal parenchymal airspace opacity. No pleural effusion or pneumothorax. IMPRESSION: No radiographic evidence for acute cardiopulmonary process. Electronically signed by: Shakeel Mei MD (02/20/2018 8:22 AM) [facility]
== END 2018-02-20 01:43 | disposition home or self-care (01) ==
LOC: ER 21:58
DX: R07.89 Other chest pain (principal); R11.2 Nausea with vomiting, unspecified; J44.9 Chronic obstructive pulmonary disease, unspecified; I10 Essential (primary) hypertension; I25.2 Old myocardial infarction; Z90.49 Acquired absence of other specified parts of digestive tract; Z98.890 Other specified postprocedural states; Z98.51 Tubal ligation status; Z88.5 Allergy status to narcotic agent; Z88.0 Allergy status to penicillin; Z88.1 Allergy status to other antibiotic agents; Z91.012 Allergy to eggs
CPT/HCPCS: 36415; 71045; 80053; 83735; 83880; 84484; 85025; 93005; 96361; 96374; 96375; 96376; 99285; J1885; J2405; J3010; J7030

== ENCOUNTER 2018-03-09 22:45 | Emergency (ER) | payer BC ==
[~2018-03-09] VITALS: Ht 160 cm; Wt 102.1 kg
--- NOTE | 2018-03-09 23:22 | PHYS DOC ---
Past Medical History Past Medical History: Asthma, CAD, COPD, Fibromyalgia, GI Bleed, Hypertension, [place] Additional Past Medical Histor: ulcer, DDD, back pain Past Surgical History: Cholecystectomy, , Tubal ligation, Other Additional Past Surgical Histo: Hernia repair x3. Coronary Angiogram x3- no stents (clean) Alcohol Use: Rarely Drug Use: None Adult General Chief Complaint Chief Complaint: UPPER EXTREMITY INJURY HPI HPI Pt is a 52 y/o WF who presents to the ED for evaluation. She states that yesterday evening, she was walking up stairs in the dark and fell UP 3 steps, injuring her R arm. She complains of pain in her R shoulder and elbow. Denies any other injuries. Denies numbness or weakness, denies hitting her head, or neck pain or injury. Denies feeling dizzy or lightheaded prior to the fall. Does have a history of fibromyalgia. Palpation and movement of the affected areas worsen her pain. There are no alleviating factors to her symptoms. Review of Systems Review of Systems Constitutional: Denies fever or chills [] Eyes: Denies change in visual acuity, redness, or eye pain [] HENT: Denies nasal congestion or sore throat [] Respiratory: Denies cough or shortness of breath [] Cardiovascular: The patient denies any shortness of breath, chest pain, palpitations, or orthopnea [] GI: Denies abdominal pain, nausea, vomiting, bloody stools or diarrhea [] : Denies dysuria or hematuria [] Musculoskeletal: Denies neck or acute/new back pain or joint pain, except as noted in HPI [] Integument: Denies rash or skin lesions [] Neurologic: Denies headache, focal weakness or sensory changes [] Endocrine: Denies polyuria or polydipsia [] All other systems were reviewed and found to be within normal limits, except as documented in this note. Current Medications Current Medications Current Medications Medications (Trade) Dose Ordered Sig/Maggie Start Time Stop Time Status Last Admin Dose Admin Ibuprofen (Motrin) 600 mg 1X ONCE 03/09/18 23:45 03/09/18 23:46 DC 03/09/18 23:24 600 MG Ondansetron HCl (Zofran Odt) 4 mg 1X ONCE 03/10/18 00:00 03/10/18 00:01 DC 03/10/18 00:00 4 MG Allergies Allergies Allergies Coded Allergies Type Severity Reaction Last Updated Verified Penicillins Allergy Intermediate hives 06/26/15 Yes amoxicillin Allergy Intermediate rash 06/26/15 Yes ceftriaxone Allergy Intermediate hives 06/26/15 Yes codeine Allergy Intermediate hives 12/29/17 Yes doxycycline Allergy Intermediate rash 06/26/15 Yes egg Allergy Intermediate hives 06/26/15 Yes morphine Allergy Intermediate rash 12/29/17 Yes Physical Exam Physical Exam PHYSICAL EXAM: CONSTITUTIONAL: Well developed, well nourished HEAD: normocephalic, atraumatic EENT: PERRL, EOMI. Conjunctivae normal color, sclerae non-icteric; moist mucous membranes. NECK: Supple, non-tender; no meningismus.There is full, painless range of motion of the cervical spine, without any focal bony midline tenderness to palpation. LUNGS: Lungs CTA, breathing even and unlabored. Normal air movement. HEART: Regular rate and rhythm, no murmur CHEST: No deformity; non-tender ABDOMEN: The abdomen is soft, and non-tender, no masses or bruits. EXTREM: There is tenderness to palpation diffusely in the right shoulder, with mildly limited RPM, without deformity or contusion. There is also diffuse TTP of the R elbow, without crepitus, bruising, or deformity. There is no focal TTP of the radial head or distal humeral condyles. There is normal PMS distally. Remainder of the extremities are atraumatic, with normal ROM; no deformity, no calf tenderness. Normal pulses palpable in all extremities. There is no pedal edema. SKIN: No rash; no diaphoresis NEURO: Alert; normal speech and cognition; CN's grossly intact; strength grossly intact without focal deficit. BACK: No CVA TTP.There is no bony tenderness to palpation of the thoracic or lumbar spine. Current Patient Data Vital Signs Vital Signs Date Time Temp Pulse Resp B/P (MAP) Pulse Ox O2 Delivery O2 Flow Rate FiO2 03/09/18 22:55 99.0 88 20 152/84 (106) 98 Room Air 99.0 EKG EKG [] Radiology/Procedures Radiology/Procedures [PROCEDURE: ELBOW RIGHT 2V SHOULDER 2+V RIGHT, ELBOW RIGHT 2V Clinical Indication: Fall, elbow and shoulder pain Comparison: None. Findings: 2 views of right elbow. Sensitivity decreased without third view. No acute fracture or dislocation. No elbow joint effusion. No soft tissue swelling is appreciated radiographically. No radiopaque foreign body is identified. There is no acute fracture or dislocation of the right shoulder. No acute right rib abnormality. Visualized lungs are clear. Soft tissues unremarkable. IMPRESSION: No acute fracture. ] Course & Med Decision Making Course & Med Decision Making Pertinent Imaging studies reviewed. (See chart for details) [12:10 AM:Patient remains stable. I discussed test results, the need for close follow-up, and return precautions.] Dragon Disclaimer Dragon Disclaimer This electronic medical record was generated, in whole or in part, using a voice recognition dictation system. Departure Departure Impression: Primary Impression: Arm contusion Disposition: 01 HOME, SELF-CARE Condition: STABLE Referrals: PK JAQUEZ MD (PCP) Patient Instructions: Contusion, Elbow Contusion, Shoulder Pain Scripts Diclofenac Sodium (DICLOFENAC SODIUM) 50 Mg Tablet.dr 1 TAB PO BID, #20 TAB 0 Refills Prov: SHERRY LAMAR MD 03/10/18 SHERRY LAMAR MD Mar 09, 2018 23:22
[2018-03-09] MEDS ORDERED: IBUPROFEN 600 MG TABLET. PO ONE (23:45)
[2018-03-10] MEDS ORDERED: ONDANSETRON ODT 4 MG TAB.RAPDIS. PO ONE
--- NOTE | 2018-03-10 00:01 | RAD ---
SHOULDER 2+V RIGHT, ELBOW RIGHT 2V Clinical Indication: Fall, elbow and shoulder pain Comparison: None. Findings: 2 views of right elbow. Sensitivity decreased without third view. No acute fracture or dislocation. No elbow joint effusion. No soft tissue swelling is appreciated radiographically. No radiopaque foreign body is identified. There is no acute fracture or dislocation of the right shoulder. No acute right rib abnormality. Visualized lungs are clear. Soft tissues unremarkable. IMPRESSION: No acute fracture. Electronically signed by: Ki Ojeda MD (03/09/2018 11:59 PM) [facility]
[2018-03-10] MEDS ORDERED: DICL50TA4 PO (00:14)
[2018-03-10 00:29] VITALS: BP 150/81
== END 2018-03-10 00:30 | disposition home or self-care (01) ==
LOC: ER 22:45
DX: S50.01XA Contusion of right elbow, initial encounter (principal); J44.9 Chronic obstructive pulmonary disease, unspecified; I10 Essential (primary) hypertension; I25.2 Old myocardial infarction; I25.10 Atherosclerotic heart disease of native coronary artery without angina pectoris; Z90.49 Acquired absence of other specified parts of digestive tract; Z98.890 Other specified postprocedural states; Z98.51 Tubal ligation status; Z88.1 Allergy status to other antibiotic agents; Z88.5 Allergy status to narcotic agent; Z88.0 Allergy status to penicillin; Z91.012 Allergy to eggs; W10.9XXA Fall (on) (from) unspecified stairs and steps, initial encounter; Y93.01 Activity, walking, marching and hiking; Y92.89 Other specified places as the place of occurrence of the external cause; Y99.8 Other external cause status
CPT/HCPCS: 73030; 73070; 99284; Q0162

== ENCOUNTER 2018-07-16 16:53 | Emergency (ER) | payer BC ==
[~2018-07-16] VITALS: Ht 160 cm; Wt 108.9 kg
[~2018-07-16 16:53] MED LIST changes: +DICL50TA4 PO; -HYDR-2762 PO; +HYDR-2765 PO; -HYDR-2766 PO; +HYDR-2769 PO; +HYDR-3164 PO; -HYDR-971 PO
[2018-07-16 17:43] LABS: BASO # 0.1 x10^3/uL (0.0-0.2); BASO % 0 % (0-3); EOS # 0.1 x10^3/uL (0.0-0.7); EOS % 0 % (0-3); HEMATOCRIT 36.9 % (36.0-47.0); HEMOGLOBIN 12.4 g/dL (12.0-15.5); LYMPH # 1.6 x10^3/uL (1.0-4.8); LYMPH % 8 % (24-48); MEAN CORPUSCULAR HEMOGLOBIN 29 pg (25-35); MEAN CORPUSCULAR HGB CONC 34 g/dL (31-37); MEAN CORPUSCULAR VOLUME 86 fL (79-100); MONO # 1.2 x10^3/uL (0.0-1.1); MONO % 6 % (0-9); NEUT # 16.3 x10^3uL (1.8-7.7); NEUT % 85 % (31-73); PLATELET COUNT 295 x10^3/uL (140-400); RED BLOOD COUNT 4.29 x10^6/uL (3.50-5.40); RED CELL DISTRIBUTION WIDTH 14.9 % (11.5-14.5); WHITE BLOOD COUNT 19.2 x10^3/uL (4.0-11.0)
[2018-07-16] MEDS ORDERED: IPRATRPIUM/ALBUTEROL 0.5/2.5MG 3 ML NEBU. NEB ONE (17:45)
--- NOTE | 2018-07-16 17:49 | RAD ---
PROCEDURE: PORTABLE CHEST 1V CLINICAL INDICATION: CHEST PAIN, SOA COMPARISON: 12/28/2017 FINDINGS: No pneumothorax identified. Cardiac and mediastinal contours unremarkable. No pulmonary consolidation or acute airspace disease. No acute osseous abnormalities identified. IMPRESSION: No pulmonary consolidation or acute airspace disease. Electronically signed by: Jacob Rosenberg DO (07/16/2018 5:45 PM) [facility]
[2018-07-16 17:51] LABS: PROTHROMBIN TIME PATIENT 12.4 SEC (11.7-14.0)
[2018-07-16 17:56] LABS: CALCIUM 9.1 mg/dL (8.5-10.1); POTASSIUM 3.8 mmol/L (3.5-5.1)
--- NOTE | 2018-07-16 17:58 | EKG ---
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
--- NOTE | 2018-07-16 17:58 | PHYS DOC ---
Past Medical History Past Medical History: Asthma, CAD, COPD, Fibromyalgia, GI Bleed, Hypertension, [place] Additional Past Medical Histor: ulcer, DDD, back pain Past Surgical History: Cholecystectomy, , Tubal ligation, Other Additional Past Surgical Histo: Hernia repair x3. Coronary Angiogram x3- no stents (clean) Alcohol Use: Rarely Drug Use: None Adult General Chief Complaint Chief Complaint: SHORTNESS OF BREATH HPI HPI Patient is a 52 year old f p/w cough sob and chest pain, x three weeks hx of copd has been on abx, and also some prednisone last took on tuesday. symptoms worsening feels chest tightness worse with dry coughing. no fever. symptoms worsening. moderat to severe nonradiating sharp Review of Systems Review of Systems Constitutional: feels warm at times. Eyes: Denies change in visual acuity, redness, or eye pain [] Cardiovascular: No additional information not addressed in HPI [] Musculoskeletal: Denies back pain or joint pain [] Integument: Denies rash or skin lesions [] Neurologic: Denies headache, focal weakness or sensory changes [] All other systems were reviewed and found to be within normal limits, except as documented in this note. Current Medications Current Medications Current Medications Medications (Trade) Dose Ordered Sig/Maggie Start Time Stop Time Status Last Admin Dose Admin Albuterol Sulfate (Ventolin Neb Soln) 2.5 mg 1X ONCE 07/16/18 18:30 07/16/18 18:31 DC 07/16/18 18:38 2.5 MG Albuterol/ Ipratropium (Duoneb) 3 ml 1X ONCE 07/16/18 17:45 07/16/18 17:46 DC 07/16/18 17:45 3 ML Lorazepam (Ativan) 1 mg 1X ONCE 07/16/18 17:45 07/16/18 17:46 DC 07/16/18 17:55 1 MG Allergies Allergies Allergies Coded Allergies Type Severity Reaction Last Updated Verified Penicillins Allergy Intermediate hives 06/26/15 Yes amoxicillin Allergy Intermediate rash 06/26/15 Yes ceftriaxone Allergy Intermediate hives 06/26/15 Yes codeine Allergy Intermediate hives 12/29/17 Yes doxycycline Allergy Intermediate rash 06/26/15 Yes egg Allergy Intermediate hives 06/26/15 Yes morphine Allergy Intermediate rash 12/29/17 Yes Physical Exam Physical Exam Constitutional: Well developed, well nourished, mild distress, non-toxic appearance. [] HENT: Normocephalic, atraumatic, bilateral external ears normal, oropharynx moist, no oral exudates, nose normal. [] Eyes: PERRLA, EOMI, conjunctiva normal, no discharge. [] Neck: Normal range of motion, no tenderness, supple, no stridor. [] Cardiovascular:Heart rate regular rhythm, no murmur [] Lungs & Thorax: prolonged exp phase reactive cough noted no overt wheezing. Abdomen: Bowel sounds normal, soft, no tenderness, no masses, no pulsatile masses. [] Skin: Warm, dry, no erythema, no rash. [] Back: No tenderness, no CVA tenderness. [] Extremities: No tenderness, no cyanosis, no clubbing, ROM intact, no edema. [] Neurologic: Alert and oriented X 3, normal motor function, normal sensory function, no focal deficits noted. [] Psychologic: Affect normal, judgement normal, mood anxious Current Patient Data Vital Signs Vital Signs Date Time Temp Pulse Resp B/P (MAP) Pulse Ox O2 Delivery O2 Flow Rate FiO2 07/16/18 19:00 90 18 155/68 (97) 96 Room Air 07/16/18 17:05 98.1 98.1 Lab Values Laboratory Tests Test 07/16/18 17:15 07/16/18 17:40 White Blood Count 19.2 x10^3/uL (4.0-11.0) H Red Blood Count 4.29 x10^6/uL (3.50-5.40) Hemoglobin 12.4 g/dL (12.0-15.5) Hematocrit 36.9 % (36.0-47.0) Mean Corpuscular Volume 86 fL (79-100) Mean Corpuscular Hemoglobin 29 pg (25-35) Mean Corpuscular Hemoglobin Concent 34 g/dL (31-37) Red Cell Distribution Width 14.9 % (11.5-14.5) H Platelet Count 295 x10^3/uL (140-400) Neutrophils (%) (Auto) 85 % (31-73) H Lymphocytes (%) (Auto) 8 % (24-48) L Monocytes (%) (Auto) 6 % (0-9) Eosinophils (%) (Auto) 0 % (0-3) Basophils (%) (Auto) 0 % (0-3) Neutrophils # (Auto) 16.3 x10^3uL (1.8-7.7) H Lymphocytes # (Auto) 1.6 x10^3/uL (1.0-4.8) Monocytes # (Auto) 1.2 x10^3/uL (0.0-1.1) H Eosinophils # (Auto) 0.1 x10^3/uL (0.0-0.7) Basophils # (Auto) 0.1 x10^3/uL (0.0-0.2) Segmented Neutrophils % 82 % (35-66) H Lymphocytes % 5 % (24-48) L Atypical Lymphocytes % (Manual) 1 % (0-0) H Monocytes % 10 % (0-10) Eosinophils % 1 % (0-5) Basophils % 1 % (0-3) Platelet Estimate Adequate (ADEQUATE) Prothrombin Time 12.4 SEC (11.7-14.0) Prothrombin Time INR 1.0 (0.8-1.1) D-Dimer (Phyllis) 0.30 ug/mlFEU (0.00-0.50) Sodium Level 143 mmol/L (136-145) Potassium Level 3.8 mmol/L (3.5-5.1) Chloride Level 103 mmol/L (98-107) Carbon Dioxide Level 29 mmol/L (21-32) Anion Gap 11 (6-14) Blood Urea Nitrogen 24 mg/dL (7-20) H Creatinine 1.0 mg/dL (0.6-1.0) Estimated GFR (Cockcroft-Gault) 58.0 BUN/Creatinine Ratio 24 (6-20) H Glucose Level 144 mg/dL (70-99) H Calcium Level 9.1 mg/dL (8.5-10.1) Total Bilirubin 0.2 mg/dL (0.2-1.0) Aspartate Amino Transferase (AST) 8 U/L (15-37) L Alanine Aminotransferase (ALT) 18 U/L (14-59) Alkaline Phosphatase 96 U/L (46-116) Troponin I Quantitative < 0.017 ng/mL (0.000-0.055) Total Protein 6.5 g/dL (6.4-8.2) Albumin 3.1 g/dL (3.4-5.0) L Albumin/Globulin Ratio 0.9 (1.0-1.7) L Urine Collection Type Unknown Urine Color Yellow Urine Clarity Clear Urine pH 5.0 Urine Specific [place] >=1.030 Urine Protein Negative mg/dL (NEG-TRACE) Urine Glucose (UA) Negative mg/dL (NEG) Urine Ketones (Stick) Negative mg/dL (NEG) Urine Blood Negative (NEG) Urine Nitrite Negative (NEG) Urine Bilirubin Negative (NEG) Urine Urobilinogen Dipstick 0.2 mg/dL (0.2 mg/dL) Urine Leukocyte Esterase Negative (NEG) Urine RBC Occ /HPF (0-2) Urine WBC Occ /HPF (0-4) Urine Squamous Epithelial Cells Mod /LPF Urine Bacteria 0 /HPF (0-FEW) Urine Mucus Marked /LPF Influenza Type A Antigen Negative (NEGATIVE) Influenza Type B Antigen Negative (NEGATIVE) Laboratory Tests 07/16/18 17:15 Laboratory Tests 07/16/18 17:15 EKG EKG nsr rate 87 no acute stemi or ischemia noted. interpreted by me at time of encounter.[] Radiology/Procedures Radiology/Procedures [] Impressions: FINDINGS: No pneumothorax identified. Cardiac and mediastinal contours unremarkable. No pulmonary consolidation or acute airspace disease. No acute osseous abnormalities identified. IMPRESSION: No pulmonary consolidation or acute airspace disease. Electronically signed by: Jacob Rosenberg DO (07/16/2018 5:45 PM) [facility] DICTATED and SIGNED BY: JACOB ROSENBERG DO DATE: 07/16/181743 Course & Med Decision Making Course & Med Decision Making Pertinent Labs and Imaging studies reviewed. (See chart for details) []noted wbc, could be stress related, steroid related, of note had wbc 23k when she had viral enteritis ac ouple years back. u/a, remainder of lab workup including ddimer is pending at this time sign to lee. Dr. Bob's note Received patient at 1800, agree with previous H&P. Of note patient had a CT scan performed at [facility] 2 days ago of the chest abdomen and pelvis that did not show any acute features. Patient's d-dimer tonight is negative. Lungs were clear to auscultation. Cardiac enzymes were negative. Oxygen saturation remained greater than 95% with ambulation on room air. Believe this to be more of a post-bronchitic cough than any acute process, especially in light of these symptoms going on for several weeks. We will try to address the cough more directly then has been successful yet. Brenda Disclaimer Brenda Disclaimer This electronic medical record was generated, in whole or in part, using a voice recognition dictation system. Departure Departure Impression: Primary Impression: Shortness of breath Disposition: HOME, SELF-CARE Condition: GOOD Referrals: PK JAQUEZ MD (PCP) Follow-up in 2 days Patient Instructions: Cough, Adult Additional Instructions: Drink plenty of fluids. Follow-up with your regular doctor in 2 days. Return to the ER if worsening cough, worsening difficulty breathing, or any other concerns. Scripts Ipratropium [place] (ATROVENT HFA) 12.9 Gm Hfa.aer.ad 2 PUFF IH QID, #12.9 GM 0 Refills Prov: MATTEO BOB DO 07/16/18 D-Methorphan Hb/Prometh Hcl (PROMETHAZINE-DM SYRUP) 118 Ml Syrup 5 ML PO PRN Q4HRS, #120 ML Prov: MATTEO BOB DO 07/16/18 ANABELLA DUGGAN MD Jul 16, 2018 17:58 MATTEO BOB DO Jul 16, 2018 19:09
[2018-07-16 17:59] LABS: ALBUMIN 3.1 g/dL (3.4-5.0); ALBUMIN/GLOBULIN RATIO 0.9 (1.0-1.7); TOTAL BILIRUBIN 0.2 mg/dL (0.2-1.0); TOTAL PROTEIN 6.5 g/dL (6.4-8.2)
[2018-07-16 18:11] LABS: D-DIMER 0.3 ug/mlFEU (0.00-0.50)
[2018-07-16 18:12] LABS: BILIRUBIN,URINE NEGATIVE (NEG); CLARITY,URINE CLEAR; COLOR,URINE YELLOW; NITRITE,URINE NEGATIVE (NEG); PROTEIN,URINE NEGATIVE (NEG-TRACE); UROBILINOGEN,URINE 0.2 mg/dL (0.2 mg/dL)
[2018-07-16 18:25] LABS: BACTERIA,URINE 0 /HPF (0-FEW); RBC,URINE OCC /HPF (0-2); SQUAMOUS EPITHELIAL CELL,UR MOD /LPF; WBC,URINE OCC /HPF (0-4)
[2018-07-16 18:30] LABS: INFLUENZA A PATIENT NEGATIVE (NEGATIVE); INFLUENZA B PATIENT NEGATIVE (NEGATIVE)
[2018-07-16] MEDS ORDERED: ALBUTEROL SULFATE 2.5 MG/3 ML NEBU. NEB ONE (18:30)
[2018-07-16 19:00] VITALS: BP 155/68
[2018-07-16] MEDS ORDERED: ATROVENT HFA12.9 GM IH (19:09)
[2018-07-16] MEDS ORDERED: D-ME118S2 PO (19:09)
[2018-07-16 19:18] LABS: % ATYL 1 % (0-0); % BASOS 1 % (0-3); % EOS 1 % (0-5); % LYMPHS 5 % (24-48); % MONOS 10 % (0-10); % SEGS 82 % (35-66); PLT ESTIMATE ADEQUATE (ADEQUATE)
== END 2018-07-16 19:20 | disposition home or self-care (01) ==
LOC: ER 16:53
DX: R06.02 Shortness of breath (principal); R05 Cough; R07.89 Other chest pain; J44.9 Chronic obstructive pulmonary disease, unspecified; I10 Essential (primary) hypertension; I25.2 Old myocardial infarction; I25.10 Atherosclerotic heart disease of native coronary artery without angina pectoris; Z90.49 Acquired absence of other specified parts of digestive tract; Z98.890 Other specified postprocedural states; Z98.51 Tubal ligation status; Z88.0 Allergy status to penicillin; Z88.1 Allergy status to other antibiotic agents; Z88.5 Allergy status to narcotic agent; Z91.012 Allergy to eggs
CPT/HCPCS: 36415; 71045; 80053; 81001; 84484; 85007; 85025; 85379; 85610; 87804; 93005; 94640; 96374; 99284; J2060; J7613; J7620

== ENCOUNTER → 2019-06-06 | Outpatient (CLI) | payer BC ==
[~2019-06-06] MED LIST changes: +ATROVENT HFA12.9 GM IH; +BARIUM SULFATE 60% 355 ML SUSP PO ONE; +LIDO700A21 TD; -LIDO700A39 TD; -PANT40TA5 PO; +PANT40TA77 PO; +PROM118S9 PO
--- NOTE | 2019-06-06 15:10 | RAD ---
Study: CR small bowel series INDICATION: Nausea, vomiting, abdominal pain and rectal bleed. COMPARISON: Small bowel series from 08/17/2017 TECHNIQUE: Real-time fluoroscopic evaluation of the small bowel after the ingestion of contrast. Multiple plain films were obtained of the abdomen after drinking of contrast to evaluate the propagation of contrast. Contrast was seen to be present within the colon after approximately 2 hours. FINDINGS: Fluoroscopy time: 2.9 minutes. Total fluoroscopy dose: 171 mGy Normal caliber of the small bowel without a discrete area of luminal narrowing. Peristalsis visualized throughout the course of the study was within the broad range of normal. No stricture seen at the terminal ileum and normal distention of the small bowel was seen in this region during the course of the study. The small bowel mucosal pattern is unremarkable. The partially evaluated colon is unremarkable. The duodenal sweep crosses the midline with a normal location of the ligament of Treitz. Cholecystectomy clips. IMPRESSION: Unremarkable small bowel series. Normal caliber of the small bowel to include the terminal ileum and the small bowel mucosal pattern is within the broad range of normal. Electronically signed by: BRODY JOHNSON MD (06/06/2019 3:07 PM) [facility]
== END | disposition home or self-care (01) ==
LOC: RAD 12:52
PROVIDERS: ATTEND Internal Medicine Gastroenterology
DX: K62.5 Hemorrhage of anus and rectum (principal); R07.9 Chest pain, unspecified; R11.2 Nausea with vomiting, unspecified; Z90.49 Acquired absence of other specified parts of digestive tract
CPT/HCPCS: 74250

== ENCOUNTER 2019-08-21 19:07 | Inpatient (IN) | payer BC ==
[~2019-08-21] VITALS: Ht 160 cm; Wt 101.8 kg
[~2019-08-21 19:07] MED LIST changes: -BARIUM SULFATE 60% 355 ML SUSP PO ONE
[2019-08-21 19:45] LABS: BASO % 0 % (0-3); EOS # 0.1 x10^3/uL (0.0-0.7); EOS % 1 % (0-3); HEMATOCRIT 41.3 % (36.0-47.0); HEMOGLOBIN 13.7 g/dL (12.0-15.5); LYMPH # 2.8 x10^3/uL (1.0-4.8); LYMPH % 31 % (24-48); MEAN CORPUSCULAR HEMOGLOBIN 28 pg (25-35); MEAN CORPUSCULAR HGB CONC 33 g/dL (31-37); MEAN CORPUSCULAR VOLUME 86 fL (79-100); MONO # 0.7 x10^3/uL (0.0-1.1); MONO % 7 % (0-9); NEUT # 5.5 x10^3/uL (1.8-7.7); NEUT % 60 % (31-73); PLATELET COUNT 292 x10^3/uL (140-400); RED BLOOD COUNT 4.82 x10^6/uL (3.50-5.40); RED CELL DISTRIBUTION WIDTH 14.4 % (11.5-14.5); WHITE BLOOD COUNT 9.1 x10^3/uL (4.0-11.0)
[2019-08-21] MEDS ORDERED: PANTOPRAZOLE SODIUM IV DRIP 80 MG in IV NORMAL SALINE 100ML 100 ML IV SCH (19:45)
[2019-08-21] MEDS ORDERED: PANTOPRAZOLE IV PUSH 40 MG VIAL. IVP ONE (19:45)
[2019-08-21 19:58] LABS: CALCIUM 9.3 mg/dL (8.5-10.1); CREATININE 0.8 mg/dL (0.6-1.0); GFR 74.7; POTASSIUM 3.6 mmol/L (3.5-5.1)
[2019-08-21 20:03] LABS: ALBUMIN 3.8 g/dL (3.4-5.0); TOTAL BILIRUBIN 0.5 mg/dL (0.2-1.0); TOTAL PROTEIN 7.5 g/dL (6.4-8.2)
[2019-08-21 20:20] LABS: PROTHROMBIN TIME PATIENT 12.5 SEC (11.7-14.0)
[2019-08-21 20:35] LABS: BILIRUBIN,URINE NEGATIVE (NEG); CLARITY,URINE CLEAR; COLOR,URINE YELLOW; NITRITE,URINE NEGATIVE (NEG); PROTEIN,URINE NEGATIVE (NEG-TRACE)
[2019-08-21 20:51] LABS: BACTERIA,URINE FEW /HPF (0-FEW); RBC,URINE OCC /HPF (0-2); SQUAMOUS EPITHELIAL CELL,UR FEW /LPF
[2019-08-21] MEDS ORDERED: fentaNYL PF VIAL 100 MCG/2 ML VIAL IVP ONE (22:00)
[2019-08-21] MEDS ORDERED: ONDANSETRON PF 4 MG/2 ML VIAL. IVP ONE (22:15)
[2019-08-21] MEDS ORDERED: fentaNYL PF VIAL 100 MCG/2 ML VIAL IM ONE (22:15)
[2019-08-22] MEDS: ONDANSETRON PF 4 MG/2 ML VIAL. IV PRN ×3 (01:42→20:39)
[2019-08-22] MEDS: fentaNYL PF VIAL 100 MCG/2 ML VIAL IV PRN ×5 (01:44→23:39)
[2019-08-22] MEDS: IV NORMAL SALINE 1000ML BAG 1,000 ML IV SCH ×5 (04:30→23:36)
--- NOTE | 2019-08-22 04:52 | PHYS DOC ---
Past Medical History Past Medical History: Asthma, CAD, COPD, Fibromyalgia, GI Bleed, Hypertension, MA Additional Past Medical Histor: ulcer, DDD, back pain Past Surgical History: Cholecystectomy, , Tubal ligation, Other Additional Past Surgical Histo: Hernia repair x3. Coronary Angiogram x3- no stents (clean) Smoking Status: Former Smoker Alcohol Use: Rarely Drug Use: None Adult General Chief Complaint Chief Complaint: GI PROBLEM HPI HPI Patient is a 53 year old female with history of peptic ulcer disease, GI bleed, CAD, MA who presents with hematochezia. Patient states she was admitted to [facility] last week for thrombocytopenia and GI bleed. She received platelet transfusions and was scheduled for an outpatient colonoscopy and EGD. She states this evening, she had episodes of bright red rectal bleeding without bowel movements. She is reports feeling lightheaded and dizzy and states she has chest pain. Chest pain substernal described as dull and aching. Denies shortness of breath and nausea. No fevers or chills. Patient states she was evaluated by her PCP earlier today and told that she had platelet count of 38. No other acute symptoms or complaints.[] Review of Systems Review of Systems Review of symptoms as per history of present illness. All other review symptoms are negative All other systems were reviewed and found to be within normal limits, except as documented in this note. Current Medications Current Medications Current Medications Medications (Trade) Dose Ordered Sig/Maggie Start Time Stop Time Status Last Admin Dose Admin Pantoprazole Sodium (PROTONIX VIAL for IV PUSH) 40 mg 1X ONCE 08/21/19 19:45 08/21/19 19:46 DC 08/21/19 20:03 40 MG Pantoprazole Sodium 80 mg/ Sodium Chloride 100 ml @ 10 mls/hr Q10H 08/21/19 19:45 08/21/19 20:03 10 MLS/HR Allergies Allergies Allergies Coded Allergies Type Severity Reaction Last Updated Verified Penicillins Allergy Intermediate hives 06/26/15 Yes amoxicillin Allergy Intermediate rash 06/26/15 Yes ceftriaxone Allergy Intermediate hives 06/26/15 Yes codeine Allergy Intermediate hives 12/29/17 Yes doxycycline Allergy Intermediate rash 06/26/15 Yes egg Allergy Intermediate hives 06/26/15 Yes morphine Allergy Intermediate rash 12/29/17 Yes Physical Exam Physical Exam Constitutional: Well developed, well nourished, no acute distress, non-toxic appearance. [] HENT: Normocephalic, atraumatic, bilateral external ears normal, oropharynx moist, no oral exudates, nose normal. [] Eyes: PERRLA, EOMI, conjunctiva normal, no discharge. [] Neck: Normal range of motion, no tenderness, supple, no stridor. [] Cardiovascular:Heart rate regular rhythm, no murmur [] Lungs & Thorax: Bilateral breath sounds clear to auscultation [] Abdomen: Bowel sounds normal, soft, no tenderness, no masses, no pulsatile masses. [] Skin: Warm, dry, no erythema, no rash. [] Back: No tenderness, no CVA tenderness. [] Extremities: No tenderness, no cyanosis, no clubbing, ROM intact, no edema. [] Neurologic: Alert and oriented X 3, normal motor function, normal sensory function, no focal deficits noted. [] Psychologic: Affect normal, judgement normal, mood normal. [] Current Patient Data Vital Signs Vital Signs Date Time Temp Pulse Resp B/P (MAP) Pulse Ox O2 Delivery O2 Flow Rate FiO2 08/21/19 19:20 98.3 83 20 150/88 (108) 96 Room Air 98.3 Lab Values Laboratory Tests Test 08/21/19 19:30 08/21/19 19:38 08/21/19 20:22 White Blood Count 9.1 x10^3/uL (4.0-11.0) Red Blood Count 4.82 x10^6/uL (3.50-5.40) Hemoglobin 13.7 g/dL (12.0-15.5) Hematocrit 41.3 % (36.0-47.0) Mean Corpuscular Volume 86 fL (79-100) Mean Corpuscular Hemoglobin 28 pg (25-35) Mean Corpuscular Hemoglobin Concent 33 g/dL (31-37) Red Cell Distribution Width 14.4 % (11.5-14.5) Platelet Count 292 x10^3/uL (140-400) Neutrophils (%) (Auto) 60 % (31-73) Lymphocytes (%) (Auto) 31 % (24-48) Monocytes (%) (Auto) 7 % (0-9) Eosinophils (%) (Auto) 1 % (0-3) Basophils (%) (Auto) 0 % (0-3) Neutrophils # (Auto) 5.5 x10^3/uL (1.8-7.7) Lymphocytes # (Auto) 2.8 x10^3/uL (1.0-4.8) Monocytes # (Auto) 0.7 x10^3/uL (0.0-1.1) Eosinophils # (Auto) 0.1 x10^3/uL (0.0-0.7) Basophils # (Auto) 0.0 x10^3/uL (0.0-0.2) Sodium Level 140 mmol/L (136-145) Potassium Level 3.6 mmol/L (3.5-5.1) Chloride Level 102 mmol/L (98-107) Carbon Dioxide Level 30 mmol/L (21-32) Anion Gap 8 (6-14) Blood Urea Nitrogen 13 mg/dL (7-20) Creatinine 0.8 mg/dL (0.6-1.0) Estimated GFR (Cockcroft-Gault) 74.7 BUN/Creatinine Ratio 16 (6-20) Glucose Level 90 mg/dL (70-99) Calcium Level 9.3 mg/dL (8.5-10.1) Total Bilirubin 0.5 mg/dL (0.2-1.0) Aspartate Amino Transferase (AST) 14 U/L (15-37) L Alanine Aminotransferase (ALT) 16 U/L (14-59) Alkaline Phosphatase 105 U/L (46-116) Troponin I Quantitative < 0.017 ng/mL (0.000-0.055) Total Protein 7.5 g/dL (6.4-8.2) Albumin 3.8 g/dL (3.4-5.0) Albumin/Globulin Ratio 1.0 (1.0-1.7) Lipase 75 U/L (73-393) Prothrombin Time 12.5 SEC (11.7-14.0) Prothrombin Time INR 1.0 (0.8-1.1) Activated Partial Thromboplast Time 30 SEC (24-38) Urine Collection Type Unknown Urine Color Yellow Urine Clarity Clear Urine pH 7.0 Urine Specific [place] <=1.005 Urine Protein Negative mg/dL (NEG-TRACE) Urine Glucose (UA) Negative mg/dL (NEG) Urine Ketones (Stick) Negative mg/dL (NEG) Urine Blood Negative (NEG) Urine Nitrite Negative (NEG) Urine Bilirubin Negative (NEG) Urine Urobilinogen Dipstick 1.0 mg/dL (0.2 mg/dL) Urine Leukocyte Esterase Negative (NEG) Urine RBC Occ /HPF (0-2) Urine WBC 1-4 /HPF (0-4) Urine Squamous Epithelial Cells Few /LPF Urine Bacteria Few /HPF (0-FEW) Laboratory Tests 08/21/19 19:30 Laboratory Tests 08/21/19 19:30 EKG EKG EKG: reviewed[] Radiology/Procedures Radiology/Procedures ] Course & Med Decision Making Course & Med Decision Making Pertinent Labs and Imaging studies reviewed. (See chart for details) [No bleeding witnessed in the ED. EKG, troponin negative. Platelet count is nl. Patient hemodynamically stable. Will admit to the hospitalist service with GI consult as needed.] Dragon Disclaimer Dragon Disclaimer This electronic medical record was generated, in whole or in part, using a voice recognition dictation system. Departure Departure Impression: Primary Impression: Chest pain Additional Impression: GI bleed Disposition: ADMITTED INPATIENT Condition: STABLE Referrals: PK JAQUEZ MD (PCP) Problem Qualifiers SERGO ARIZMENDI DO Aug 22, 2019 04:52
--- NOTE | 2019-08-22 06:11 | EKG ---
[facility] [address] [place] [address] Test Date: 2019-08-21 Test Time: 19:28:49 Pat Name: DOMINGO BATES Department: Room: Gender: F Firearms Specialist: : [id number] Requested By: SERGO ARIZMENDI Order Number: [id number] Reading MD: Measurements Intervals [place] Rate: 79 P: 54 DE: 138 QRS: 58 QRSD: 76 T: 54 QT: 354 QTc: 406 Interpretive Statements SINUS RHYTHM NORMAL ECG No previous ECG available for comparison
[2019-08-22 07:00] VITALS: BP 117/65
--- NOTE | 2019-08-22 09:08 | PDOC1 ---
History and Physical Date of Admission Date of Admission DATE: 08/22/19 TIME: 09:07 Identification/Chief Complaint Chief Complaint SEEN IN ER , 53 year old female with history of peptic ulcer disease, GI bleed, CAD, ID who presents with hematochezia. Patient states she was admitted to [facility] last week for thrombocytopenia and GI bleed. She received platelet transfusions and was scheduled for an outpatient colonoscopy and EGD. She states this evening, she had episodes of bright red rectal bleeding without bowel movements. plt count here wnl 2/ reports feeling lightheaded and dizzy and states she has chest pain. Chest pain sub-sternal described as dull and aching. Past Medical History Past Medical History Past Medical History Past Medical History Past Medical History: Asthma, CAD, COPD, Fibromyalgia, GI Bleed, Hypertension, ID Additional Past Medical Histor: ulcer, DDD, back pain Past Surgical History: Cholecystectomy, , Tubal ligation, Other Additional Past Surgical Histo: Hernia repair x3. Coronary Angiogram x3- no stents (clean) Smoking Status: Former Smoker Alcohol Use: Rarely Drug Use: None FHX OBESITY Cardiovascular: CAD, HTN, ID Pulmonary: Asthma, COPD CENTRAL NERVOUS SYSTEM: Migraine GI: GERD, Gastritis Psych: Anxiety Musculoskeletal: low back pain, Osteoarthritis, Weakness, Swelling, Stiffness, Other Renal/: No pertinent hx Endocrine: No pertinent hx Past Surgical History Past Surgical History: Cholecystectomy, , Hernia Repair Family History Family History: Cancer, Hypertension Social History Smoke: <1 pack per day ALCOHOL: none Drugs: None Current Problem List Problem List Problems Medical Problems: (1) Chest pain Status: Acute (2) GI bleed Status: Acute Current Medications Current Medications Current Medications Pantoprazole Sodium (PROTONIX VIAL for IV PUSH) 40 mg 1X ONCE IVP Last administered on 08/21/19at 20:03; Start 08/21/19 at 19:45; Stop 08/21/19 at 19:46; Status DC Pantoprazole Sodium 80 mg/ Sodium Chloride 100 ml @ 10 mls/hr Q10H IV Last administered on 08/21/19at 20:03; Start 08/21/19 at 19:45 Fentanyl Citrate (Fentanyl 2ml Vial) 50 mcg 1X ONCE IM ; Start 08/21/19 at 22:15; Stop 08/21/19 at 22:16; Status DC Ondansetron HCl (Zofran) 4 mg 1X ONCE IVP Last administered on 08/21/19at 22:49; Start 08/21/19 at 22:15; Stop 08/21/19 at 22:16; Status DC Fentanyl Citrate (Fentanyl 2ml Vial) 50 mcg 1X ONCE IVP Last administered on 08/21/19at 22:50; Start 08/21/19 at 22:00; Stop 08/21/19 at 22:54; Status DC Ondansetron HCl (Zofran) 4 mg PRN Q8HRS PRN IV NAUSEA/VOMITING Last administered on 08/22/19at 01:42; Start 08/22/19 at 01:30; Stop 08/23/19 at 01:29 Fentanyl Citrate (Fentanyl 2ml Vial) 50 mcg PRN Q2HR PRN IV PAIN Last administered on 08/22/19at 01:44; Start 08/22/19 at 01:30 Sodium Chloride 1,000 ml @ 100 mls/hr Q10H IV Last administered on 08/22/19at 04:30; Start 08/22/19 at 01:30; Stop 08/23/19 at 01:29 Active Scripts Active Atrovent Hfa (Ipratropium [place]) 12.9 Gm Hfa.aer.ad 2 Puff IH QID Promethazine-Dm Syrup (D-Methorphan Hb/Prometh Hcl) 118 Ml Syrup 5 Ml PO PRN Q4HRS Diclofenac Sodium 50 Mg Tablet.dr 1 Tab PO BID Hydrocodone-Apap 7.5-325 (Hydrocodone Bit/Acetaminophen) 1 Each Tablet 1 Tab PO PRN Q6HRS PRN Lidocaine 1 Each Adh..patch 1 Patch TD DAILY Hydrocodone-Apap 10-325 (Hydrocodone Bit/Acetaminophen) 1 Each Tablet 1 Tab PO PRN Q6HRS PRN Ativan (Lorazepam) 0.5 Mg Tablet 0.5 Mg PO PRN Q8HRS PRN Pantoprazole Sodium 40 Mg Tablet. 40 Mg PO DAILYAC Metoprolol Tartrate 25 Mg Tablet 25 Mg PO BID Atorvastatin Calcium 20 Mg Tablet 20 Mg PO QHS Reported Ventolin Hfa Inhaler (Albuterol Sulfate) 18 Gm Hfa.aer.ad 2 Puff INH QID Asmanex Hfa (Mometasone Furoate) 13 Gm Hfa.aer.ad 13 Gm IH BID Sucralfate 1 Gm Tablet 1 Gm PO QIDACHS Lisinopril 20 Mg Tablet 1 Tab PO DAILY Klonopin (Clonazepam) 0.5 Mg Tablet 1 Tab PO BID 1 MG Cyclobenzaprine Hcl 5 Mg Tablet 5 Mg PO TID Prozac (Fluoxetine Hcl) 20 Mg Capsule 1 Cap PO HS Aspir 81 (Aspirin) 81 Mg Tablet.dr 1 Tab PO DAILY Allergies Allergies: Coded Allergies: Penicillins (Verified Allergy, Intermediate, hives, 06/26/15) amoxicillin (Verified Allergy, Intermediate, rash, 06/26/15) ceftriaxone (Verified Allergy, Intermediate, hives, 06/26/15) codeine (Verified Allergy, Intermediate, hives, 12/29/17) Tolerates hydrocodone doxycycline (Verified Allergy, Intermediate, rash, 06/26/15) egg (Verified Allergy, Intermediate, hives, 06/26/15) morphine (Verified Allergy, Intermediate, rash, 12/29/17) Tolerates hydrocodone ROS Review of System Review of Systems Review of Systems Review of symptoms as per history of present illness. All other review symptoms are negative 14 pt systems were reviewed and found to be within normal limits, except as documented General: No: Chills, Night Sweats, Fatigue, Malaise, Appetite, Other PSYCHOLOGICAL ROS: YES: Anxiety Hematological and Lymphatic: YES: Bleeding Problems Respiratory: No: Cough, Hemoptysis, Orthopnea, Pleuritic Pain, Shortness of breath, SOB with excertion, Sputum Changes, Stridor, Tachypnea, Wheezing, Other Cardiovascular: yes Chest Pain Gastrointestinal: Yes Abdominal Pain Genitourinary: No Dysuria, No Frequency, No Incontinence, No Hematuria, No Retention, No Discharge, No Urgency, No Pain, No Flank Pain, No Other, No , No , No , No , No , No , No Musculoskeletal: No Gait Disturbance, No Joint Pain, No Joint Stiffness, No Joint Swelling, No Muscle Pain, No Muscular Weakness, No Pain In:, No Swelling In:, No Other Neurological: No Behavorial Changes, No Bowel/Bladder ControlChng, No Confusion, No Dizziness, No Gait Disturbance, No Headaches, No Impaired Coord/balance, No Memory Loss, No Numbness/Tingling, No Seizures, No Speech Problems, No Tremors, No Visual Changes, No Weakness, No Other Physical Exam Physical Exam Physical Exam Physical Exam Constitutional: Well developed, well nourished, mild acute distress, non-toxic appearance. [] HENT: Normocephalic, atraumatic, bilateral external ears normal, oropharynx moist, no oral exudates, nose normal. [] Eyes: PERRLA, EOMI, conjunctiva normal, no discharge. [] Neck: Normal range of motion, no tenderness, supple, no stridor. [] Cardiovascular:Heart rate regular rhythm, no murmur [] Lungs & Thorax: Bilateral breath sounds clear to auscultation [] Abdomen: Bowel sounds normal, soft, no tenderness, no masses, no pulsatile masses. [] Skin: Warm, dry, no erythema, no rash. [] Back: No tenderness, no CVA tenderness. [] Extremities: No tenderness, no cyanosis, no clubbing, ROM intact, no edema. [] Neurologic: Alert and oriented X 3, normal motor function, normal sensory function, no focal deficits noted. [] Psychologic: Affect normal, judgment normal, mood anxious [] General: Alert, Oriented X3, Cooperative, mild distress HEENT: EOMI, Mucous membr. moist/pink Lungs: Clear to auscultation, Normal air movement Heart: RRR Breasts: Not examined Abdomen: Normal bowel sounds, Soft Rectal Exam: deferred PELVIC: Examination not indicated Extremities: No cyanosis Neuro: Normal speech, Cranial nerves 3-12 NL Psych/Mental Status: Mood NL Vitals Vitals Vital Signs Date Time Temp Pulse Resp B/P (MAP) Pulse Ox O2 Delivery O2 Flow Rate FiO2 08/22/19 07:37 64 11 117/65 (82) 95 Room Air 08/21/19 19:20 98.3 98.3 Labs Labs Laboratory Tests Test 08/21/19 19:30 08/21/19 19:38 08/21/19 20:22 08/22/19 04:08 White Blood Count 9.1 x10^3/uL (4.0-11.0) Red Blood Count 4.82 x10^6/uL (3.50-5.40) Hemoglobin 13.7 g/dL (12.0-15.5) Hematocrit 41.3 % (36.0-47.0) Mean Corpuscular Volume 86 fL (79-100) Mean Corpuscular Hemoglobin 28 pg (25-35) Mean Corpuscular Hemoglobin Concent 33 g/dL (31-37) Red Cell Distribution Width 14.4 % (11.5-14.5) Platelet Count 292 x10^3/uL (140-400) Neutrophils (%) (Auto) 60 % (31-73) Lymphocytes (%) (Auto) 31 % (24-48) Monocytes (%) (Auto) 7 % (0-9) Eosinophils (%) (Auto) 1 % (0-3) Basophils (%) (Auto) 0 % (0-3) Neutrophils # (Auto) 5.5 x10^3/uL (1.8-7.7) Lymphocytes # (Auto) 2.8 x10^3/uL (1.0-4.8) Monocytes # (Auto) 0.7 x10^3/uL (0.0-1.1) Eosinophils # (Auto) 0.1 x10^3/uL (0.0-0.7) Basophils # (Auto) 0.0 x10^3/uL (0.0-0.2) Sodium Level 140 mmol/L (136-145) Potassium Level 3.6 mmol/L (3.5-5.1) Chloride Level 102 mmol/L (98-107) Carbon Dioxide Level 30 mmol/L (21-32) Anion Gap 8 (6-14) Blood Urea Nitrogen 13 mg/dL (7-20) Creatinine 0.8 mg/dL (0.6-1.0) Estimated GFR (Cockcroft-Gault) 74.7 BUN/Creatinine Ratio 16 (6-20) Glucose Level 90 mg/dL (70-99) Calcium Level 9.3 mg/dL (8.5-10.1) Total Bilirubin 0.5 mg/dL (0.2-1.0) Aspartate Amino Transf (AST/SGOT) 14 U/L (15-37) Alanine Aminotransferase (ALT/SGPT) 16 U/L (14-59) Alkaline Phosphatase 105 U/L (46-116) Troponin I Quantitative < 0.017 ng/mL (0.000-0.055) < 0.017 ng/mL (0.000-0.055) Total Protein 7.5 g/dL (6.4-8.2) Albumin 3.8 g/dL (3.4-5.0) Albumin/Globulin Ratio 1.0 (1.0-1.7) Lipase 75 U/L (73-393) Prothrombin Time 12.5 SEC (11.7-14.0) Prothromb Time International Ratio 1.0 (0.8-1.1) Activated Partial Thromboplast Time 30 SEC (24-38) Urine Collection Type Unknown Urine Color Yellow Urine Clarity Clear Urine pH 7.0 Urine Specific [place] <=1.005 Urine Protein Negative mg/dL (NEG-TRACE) Urine Glucose (UA) Negative mg/dL (NEG) Urine Ketones (Stick) Negative mg/dL (NEG) Urine Blood Negative (NEG) Urine Nitrite Negative (NEG) Urine Bilirubin Negative (NEG) Urine Urobilinogen Dipstick 1.0 mg/dL (0.2 mg/dL) Urine Leukocyte Esterase Negative (NEG) Urine RBC Occ /HPF (0-2) Urine WBC 1-4 /HPF (0-4) Urine Squamous Epithelial Cells Few /LPF Urine Bacteria Few /HPF (0-FEW) Test 08/22/19 07:24 Troponin I Quantitative < 0.017 ng/mL (0.000-0.055) Laboratory Tests Test 08/21/19 19:30 08/21/19 19:38 08/21/19 20:22 08/22/19 04:08 White Blood Count 9.1 x10^3/uL (4.0-11.0) Red Blood Count 4.82 x10^6/uL (3.50-5.40) Hemoglobin 13.7 g/dL (12.0-15.5) Hematocrit 41.3 % (36.0-47.0) Mean Corpuscular Volume 86 fL (79-100) Mean Corpuscular Hemoglobin 28 pg (25-35) Mean Corpuscular Hemoglobin Concent 33 g/dL (31-37) Red Cell Distribution Width 14.4 % (11.5-14.5) Platelet Count 292 x10^3/uL (140-400) Neutrophils (%) (Auto) 60 % (31-73) Lymphocytes (%) (Auto) 31 % (24-48) Monocytes (%) (Auto) 7 % (0-9) Eosinophils (%) (Auto) 1 % (0-3) Basophils (%) (Auto) 0 % (0-3) Neutrophils # (Auto) 5.5 x10^3/uL (1.8-7.7) Lymphocytes # (Auto) 2.8 x10^3/uL (1.0-4.8) Monocytes # (Auto) 0.7 x10^3/uL (0.0-1.1) Eosinophils # (Auto) 0.1 x10^3/uL (0.0-0.7) Basophils # (Auto) 0.0 x10^3/uL (0.0-0.2) Sodium Level 140 mmol/L (136-145) Potassium Level 3.6 mmol/L (3.5-5.1) Chloride Level 102 mmol/L (98-107) Carbon Dioxide Level 30 mmol/L (21-32) Anion Gap 8 (6-14) Blood Urea Nitrogen 13 mg/dL (7-20) Creatinine 0.8 mg/dL (0.6-1.0) Estimated GFR (Cockcroft-Gault) 74.7 BUN/Creatinine Ratio 16 (6-20) Glucose Level 90 mg/dL (70-99) Calcium Level 9.3 mg/dL (8.5-10.1) Total Bilirubin 0.5 mg/dL (0.2-1.0) Aspartate Amino Transf (AST/SGOT) 14 U/L (15-37) Alanine Aminotransferase (ALT/SGPT) 16 U/L (14-59) Alkaline Phosphatase 105 U/L (46-116) Troponin I Quantitative < 0.017 ng/mL (0.000-0.055) < 0.017 ng/mL (0.000-0.055) Total Protein 7.5 g/dL (6.4-8.2) Albumin 3.8 g/dL (3.4-5.0) Albumin/Globulin Ratio 1.0 (1.0-1.7) Lipase 75 U/L (73-393) Prothrombin Time 12.5 SEC (11.7-14.0) Prothromb Time International Ratio 1.0 (0.8-1.1) Activated Partial Thromboplast Time 30 SEC (24-38) Urine Collection Type Unknown Urine Color Yellow Urine Clarity Clear Urine pH 7.0 Urine Specific [place] <=1.005 Urine Protein Negative mg/dL (NEG-TRACE) Urine Glucose (UA) Negative mg/dL (NEG) Urine Ketones (Stick) Negative mg/dL (NEG) Urine Blood Negative (NEG) Urine Nitrite Negative (NEG) Urine Bilirubin Negative (NEG) Urine Urobilinogen Dipstick 1.0 mg/dL (0.2 mg/dL) Urine Leukocyte Esterase Negative (NEG) Urine RBC Occ /HPF (0-2) Urine WBC 1-4 /HPF (0-4) Urine Squamous Epithelial Cells Few /LPF Urine Bacteria Few /HPF (0-FEW) Test 08/22/19 07:24 Troponin I Quantitative < 0.017 ng/mL (0.000-0.055) Images Images PROCEDURE Procedure Colonoscopy Indication: hematochezia Meds: per anesthesia Findings: EARNEST: normal 'Scope advanced to TI. lleum normal. Colonic mucosa normal throughout. Occasional tiny diverticulum, sigmoid. No polyps, etc. Internal hemorrhoids noted. No stercoral ulcer. [place]. well. IMP: diverticulosis Internal hemorrhoids. REC: OK to feed. If no other issues, home at your discretion. Thank you. ROSEY OLEA MD Aug 16, 2017 13:07 VTE Prophylaxis Ordered VTE Prophylaxis Devices: Yes VTE Pharmacological Prophylaxi: Contraindicated Assessment/Plan Assessment/Plan Impression: Chest pain Intermittent hematemesis, chronic hematochezia, nausea, Morbid obesity: GI bleed, Acute HX CAD reports abnormal cardiac cath [address] HIGHTOWER HERE HX diverticulosis HX Internal hemorrhoids. tobacco abuse disorder PLAN ADMIT GI CONSULT ADAT Cardiology consult serial troponin i scd's po protonix SHAHBAZ TELLEZ MD Aug 22, 2019 09:08
--- NOTE | 2019-08-22 09:15 | PDOC2 ---
GI CONSULT Reason For Consult: GI Bleed HPI: HPI: 53 y/o female seen in ER w/ variety of complaints. Lower abdominal pain radiating around to back ("like hot coals"), chronic hematochezia (sometimes with stool, sometimes without, sometimes a lot, sometimes a little), intermittent hematemesis, nausea, decreased appetite, and weight loss. Sayiraj was at last month for the same issues and was told her platelet count was low, then had EGD and colonoscopy w/ polyps, then abruptly sent home because her insurance was out of network. I reviewed DC paperwork which indicates she was seen in ER for CP and SOA w/ acute on chronic abd pain w/ blood in vomitus and stool, also chronic back pain. Thrombocytopenia noted on admission but labs the next day showed normal plt count suggestive of lab error on admission. MRI showed multilevel spondylosis and bilateral neuroforaminal stenosis and she underwent trigger point injections. Labs were negative for celiac but showed B12 deficiency and she was started on supplementation. EGD and colonoscopy showed erythematous mucosa of the stomach, 4mm polyp in ascending colon, and nonbleeding external hemorrhoids. Biopsy results of stomach, colon polyp, and and random biopsies from the colon are unavailable. No dysphagia, melena, or constipation (though recalls passing hard stool after SBS in 05/2019). We have seen her in the past w/ similar complaints. Previous GI workup: EGD (Dr. Jhaveri) 06/2017: LA Grade A esophagitis, multiple diminutive erosions in the gastric antrum (biopsy negative for H. pylori), normal duodenum. Was asked to follow-up in the office, did not. Sayiraj has been taking Protonix BID (thinks before breakfast and before dinner) plus Sucralfate QID. Colonoscopy (Dr. Doran) 06/2015: Grade 1 internal hemorrhoids. Random colon biopsies were negative for pathology. Colonoscopy (Dr. Jhaveri) 08/2017: diverticulosis, internal hemorrhoids. SBS 05/2019, 08/2017, and 06/2015 all unrevealing except for some delayed transit in 2014. GES 08/2017: normal w/ T1/2 time 79 min. Mesenteric Doppler 08/2017: unremarkable. In 2018: B12 250, iron profile and TSH normal. S/p cholecystectomy. No pancreas or liver history. Has seen urology and surgery here in the past. Med list which she provides includes ASA, Metamucil, Bentyl, PPI BID, Sucralfate QID, and B12. PMH: PMH: CAD, MIs, HTN, asthma, HLD, fibromyalgia, anxiety, depression, UTI, GERD, colon polyp, diverticulosis, hemorrhoids, cholecystectomy (cholelithiasis), x 2, hernia repair x 2 (she's not sure if inguinal or umbilical or both), tubal ligation, lens implants FH: Family History: CVA, Other (Alzheimer's) Social History: Smoke: 1 pack per day ALCOHOL: rare Drugs: Marijuana ROS: GEN: Denies fevers, chills, sweats HEENT: Denies blurred vision, sore throat CV: +CP RESP: +SOA GI: Per HPI : Denies hematuria, dysuria ENDO: +weight loss NEURO: Denies confusion, dizziness MSK: +back pain SKIN: Denies jaundice, pruritus Vitals: Vitals: Vital Signs Date Time Temp Pulse Resp B/P (MAP) Pulse Ox O2 Delivery O2 Flow Rate FiO2 08/22/19 07:37 64 11 117/65 (82) 95 Room Air 08/21/19 19:20 98.3 98.3 Labs: Labs: Laboratory Tests Test 08/21/19 19:30 08/21/19 19:38 08/21/19 20:22 08/22/19 04:08 White Blood Count 9.1 x10^3/uL (4.0-11.0) Red Blood Count 4.82 x10^6/uL (3.50-5.40) Hemoglobin 13.7 g/dL (12.0-15.5) Hematocrit 41.3 % (36.0-47.0) Mean Corpuscular Volume 86 fL (79-100) Mean Corpuscular Hemoglobin 28 pg (25-35) Mean Corpuscular Hemoglobin Concent 33 g/dL (31-37) Red Cell Distribution Width 14.4 % (11.5-14.5) Platelet Count 292 x10^3/uL (140-400) Neutrophils (%) (Auto) 60 % (31-73) Lymphocytes (%) (Auto) 31 % (24-48) Monocytes (%) (Auto) 7 % (0-9) Eosinophils (%) (Auto) 1 % (0-3) Basophils (%) (Auto) 0 % (0-3) Neutrophils # (Auto) 5.5 x10^3/uL (1.8-7.7) Lymphocytes # (Auto) 2.8 x10^3/uL (1.0-4.8) Monocytes # (Auto) 0.7 x10^3/uL (0.0-1.1) Eosinophils # (Auto) 0.1 x10^3/uL (0.0-0.7) Basophils # (Auto) 0.0 x10^3/uL (0.0-0.2) Sodium Level 140 mmol/L (136-145) Potassium Level 3.6 mmol/L (3.5-5.1) Chloride Level 102 mmol/L (98-107) Carbon Dioxide Level 30 mmol/L (21-32) Anion Gap 8 (6-14) Blood Urea Nitrogen 13 mg/dL (7-20) Creatinine 0.8 mg/dL (0.6-1.0) Estimated GFR (Cockcroft-Gault) 74.7 BUN/Creatinine Ratio 16 (6-20) Glucose Level 90 mg/dL (70-99) Calcium Level 9.3 mg/dL (8.5-10.1) Total Bilirubin 0.5 mg/dL (0.2-1.0) Aspartate Amino Transf (AST/SGOT) 14 U/L (15-37) Alanine Aminotransferase (ALT/SGPT) 16 U/L (14-59) Alkaline Phosphatase 105 U/L (46-116) Troponin I Quantitative < 0.017 ng/mL (0.000-0.055) < 0.017 ng/mL (0.000-0.055) Total Protein 7.5 g/dL (6.4-8.2) Albumin 3.8 g/dL (3.4-5.0) Albumin/Globulin Ratio 1.0 (1.0-1.7) Lipase 75 U/L (73-393) Prothrombin Time 12.5 SEC (11.7-14.0) Prothromb Time International Ratio 1.0 (0.8-1.1) Activated Partial Thromboplast Time 30 SEC (24-38) Urine Collection Type Unknown Urine Color Yellow Urine Clarity Clear Urine pH 7.0 Urine Specific [place] <=1.005 Urine Protein Negative mg/dL (NEG-TRACE) Urine Glucose (UA) Negative mg/dL (NEG) Urine Ketones (Stick) Negative mg/dL (NEG) Urine Blood Negative (NEG) Urine Nitrite Negative (NEG) Urine Bilirubin Negative (NEG) Urine Urobilinogen Dipstick 1.0 mg/dL (0.2 mg/dL) Urine Leukocyte Esterase Negative (NEG) Urine RBC Occ /HPF (0-2) Urine WBC 1-4 /HPF (0-4) Urine Squamous Epithelial Cells Few /LPF Urine Bacteria Few /HPF (0-FEW) Test 08/22/19 07:24 Troponin I Quantitative < 0.017 ng/mL (0.000-0.055) Allergies: Coded Allergies: Penicillins (Verified Allergy, Intermediate, hives, 06/26/15) amoxicillin (Verified Allergy, Intermediate, rash, 06/26/15) ceftriaxone (Verified Allergy, Intermediate, hives, 06/26/15) codeine (Verified Allergy, Intermediate, hives, 12/29/17) Tolerates hydrocodone doxycycline (Verified Allergy, Intermediate, rash, 06/26/15) egg (Verified Allergy, Intermediate, hives, 06/26/15) morphine (Verified Allergy, Intermediate, rash, 12/29/17) Tolerates hydrocodone Medications: Current Medications Medications (Trade) Dose Ordered Sig/Maggie Route PRN Reason Start Time Stop Time Status Last Admin Dose Admin Pantoprazole Sodium (PROTONIX VIAL for IV PUSH) 40 mg 1X ONCE IVP 08/21/19 19:45 08/21/19 19:46 DC 08/21/19 20:03 Pantoprazole Sodium 80 mg/ Sodium Chloride 100 ml @ 10 mls/hr Q10H IV 08/21/19 19:45 08/21/19 20:03 Ondansetron HCl (Zofran) 4 mg 1X ONCE IVP 08/21/19 22:15 08/21/19 22:16 DC 08/21/19 22:49 Fentanyl Citrate (Fentanyl 2ml Vial) 50 mcg 1X ONCE IVP 08/21/19 22:00 08/21/19 22:54 DC 08/21/19 22:50 Ondansetron HCl (Zofran) 4 mg PRN Q8HRS PRN IV NAUSEA/VOMITING 08/22/19 01:30 08/23/19 01:29 08/22/19 01:42 Fentanyl Citrate (Fentanyl 2ml Vial) 50 mcg PRN Q2HR PRN IV PAIN 08/22/19 01:30 08/22/19 01:44 Sodium Chloride 1,000 ml @ 100 mls/hr Q10H IV 08/22/19 01:30 08/23/19 01:29 08/22/19 04:30 Imaging: Imaging: - PE: GEN: NAD HEENT: Atraumatic, PERRL LUNGS: CTAB HEART: RRR ABD: NABS, S/ND - suprapubic tenderness - very low EXTREMITY: No edema SKIN: No rashes, no jaundice NEURO/PSYCH: A & O 3 A/P: A/P: Suprapubic pain, back pain Intermittent hematemesis, chronic hematochezia, nausea, decreased appetite, weight loss B12 deficiency - per [facility] records GERD - on PPI and sucralfate, EGD at in 07/2019 CRC screen, h/o colon polyp - colonoscopy at in 07/2019 Diverticulosis, hemorrhoids S/p cholecystectomy -- Chronic symptoms, extensive past workup, normal labs. Change to PO PPI and resume usual GI meds. JORGE, consider DC soon. PANKAJ NICE Aug 22, 2019 09:15
[2019-08-22] MEDS ORDERED: C.DIFF MED SCREEN BY RX. MC ONE (10:15)
[2019-08-22] MEDS ORDERED: DICYCLOMINE HCL 10 MG CAPSULE PO PRN (10:15)
[2019-08-22 11:00] VITALS: BP 165/77
[2019-08-22] MEDS ORDERED: CLON1TAB12 PO (11:21)
[2019-08-22] MEDS ORDERED: LISI10TA2 PO (11:21)
[2019-08-22] MEDS ORDERED: DULO30CA44 PO (11:21)
[2019-08-22] MEDS ORDERED: SIMV20TA18 PO (11:21)
[2019-08-22] MEDS ORDERED: ONDA8TAB15 PO (11:21)
[2019-08-22] MEDS ORDERED: DICY10CA3 PO (11:27)
[2019-08-22] MEDS ORDERED: GABA300C18 PO (11:27)
[2019-08-22] MEDS ORDERED: BUDE10.2 IH (11:27)
[2019-08-22] MEDS ORDERED: METO25TA4 PO (11:27)
[2019-08-22] MEDS ORDERED: ALBU2.5V8 INH (11:27)
[2019-08-22] MEDS ORDERED: CYAN25002 SL (11:27)
[2019-08-22] MEDS ORDERED: ACETAMINOPHEN 325 MG TABLET. PO PRN (11:30)
[2019-08-22] MEDS ORDERED: DOCUSATE SODIUM 100 MG CAPSULE. PO PRN (11:30)
[2019-08-22] MEDS ORDERED: guaiFENesin ORAL 200 MG/10 ML LIQUID. PO PRN (11:30)
[2019-08-22] MEDS ORDERED: ALBUTEROL SULFATE 2.5 MG/3 ML NEBU. NEB PRN (11:30)
[2019-08-22] MEDS ORDERED: cloNIDine HCL 0.1 MG TABLET PO PRN (11:30)
[2019-08-22] MEDS ORDERED: MAG HYDROX/ALUMINUM HYD/SIMETH 30 ML ORAL.SUSP PO PRN (11:30)
[2019-08-22] MEDS ORDERED: 0.9 % SODIUM CHLORIDE 10 ML DISP.SYRIN. IV PRN (11:30)
[2019-08-22] MEDS ORDERED: ONDANSETRON PF 4 MG/2 ML VIAL. IV PRN (11:30)
[2019-08-22 14:12] VITALS: BP 135/65
[2019-08-22] MEDS: SUCRALFATE 1 GM TABLET. PO SCH ×3 (14:22→20:43)
[2019-08-22] MEDS: PANTOPRAZOLE 40 MG TABLET.DR. PO SCH (17:22)
--- NOTE | 2019-08-22 18:45 | NUR ---
This RN received report from JOSÉ MIGUEL Fernandez in ER at 1825. Pt arrived on unit at 1840 by wheelchair. Pt oriented to room and call light. 2 bed rails up. Pt rating pain 9/10 in abdomen and lower back. Will assume care and monitor pt.
[2019-08-22 19:00] VITALS: BP 124/65
[2019-08-22 23:20] VITALS: BP 129/44
[2019-08-22] MEDS: LORazepam 0.5 MG TABLET PO PRN (23:39)
[2019-08-23 03:25] VITALS: BP 122/56
[2019-08-23 05:46] LABS: BASO # 0.1 x10^3/uL (0.0-0.2); BASO % 1 % (0-3); EOS # 0.1 x10^3/uL (0.0-0.7); EOS % 2 % (0-3); HEMATOCRIT 35.3 % (36.0-47.0); HEMOGLOBIN 11.7 g/dL (12.0-15.5); LYMPH # 2.4 x10^3/uL (1.0-4.8); LYMPH % 34 % (24-48); MEAN CORPUSCULAR HEMOGLOBIN 29 pg (25-35); MEAN CORPUSCULAR HGB CONC 33 g/dL (31-37); MEAN CORPUSCULAR VOLUME 86 fL (79-100); MONO # 0.5 x10^3/uL (0.0-1.1); MONO % 8 % (0-9); NEUT # 3.9 x10^3/uL (1.8-7.7); NEUT % 56 % (31-73); PLATELET COUNT 226 x10^3/uL (140-400); RED BLOOD COUNT 4.09 x10^6/uL (3.50-5.40); RED CELL DISTRIBUTION WIDTH 14.4 % (11.5-14.5); WHITE BLOOD COUNT 7.1 x10^3/uL (4.0-11.0)
[2019-08-23 06:30] LABS: ALBUMIN 2.9 g/dL (3.4-5.0); CALCIUM 8.6 mg/dL (8.5-10.1); CREATININE 0.7 mg/dL (0.6-1.0); GFR 87.2; POTASSIUM 3.4 mmol/L (3.5-5.1); TOTAL BILIRUBIN 0.5 mg/dL (0.2-1.0); TOTAL PROTEIN 5.7 g/dL (6.4-8.2)
[2019-08-23 07:11] VITALS: BP 131/65
[2019-08-23] MEDS: PANTOPRAZOLE 40 MG TABLET.DR. PO SCH ×2 (09:05→15:03)
[2019-08-23] MEDS: CYANOCOBALAMIN (VITAMIN B-12) 1,000 MCG TABLET. PO SCH (09:05)
[2019-08-23] MEDS: PSYLLIUM HUSK (SUGAR FREE) 1 PKT PACKET PO SCH (09:05)
[2019-08-23] MEDS: SUCRALFATE 1 GM TABLET. PO SCH ×2 (09:06→21:33)
[2019-08-23] MEDS: fentaNYL PF VIAL 100 MCG/2 ML VIAL IV PRN ×3 (09:41→19:48)
--- NOTE | 2019-08-23 09:45 | NUR ---
SS following for discharge planning. SS reviewed pt chart. Pt is from home and is currently on room air. SS will continue to follow for discharge planning.
--- NOTE | 2019-08-23 09:58 | PDOC ---
Subjective: Subjective: Sick of this, wants answers. Lower abdominal pain wrapping around to back. Doesn't remember trigger point inj at [facility]. Hasn't stooled. Wants to know why she had bleeding. Not hungry, feels nauseated. Says she didn't get along with her pain doctor in the past. Wonders why she wasn't started on any of her home meds. Objective: Vital Signs: Vital Signs Date Time Temp Pulse Resp B/P (MAP) Pulse Ox O2 Delivery O2 Flow Rate FiO2 08/23/19 09:41 96 Room Air 08/23/19 07:11 98.3 78 18 131/65 (87) 98.3 Labs: Laboratory Tests Test 08/23/19 04:00 White Blood Count 7.1 x10^3/uL Red Blood Count 4.09 x10^6/uL Hemoglobin 11.7 g/dL Hematocrit 35.3 % Mean Corpuscular Volume 86 fL Mean Corpuscular Hemoglobin 29 pg Mean Corpuscular Hemoglobin Concent 33 g/dL Red Cell Distribution Width 14.4 % Platelet Count 226 x10^3/uL Neutrophils (%) (Auto) 56 % Lymphocytes (%) (Auto) 34 % Monocytes (%) (Auto) 8 % Eosinophils (%) (Auto) 2 % Basophils (%) (Auto) 1 % Neutrophils # (Auto) 3.9 x10^3/uL Lymphocytes # (Auto) 2.4 x10^3/uL Monocytes # (Auto) 0.5 x10^3/uL Eosinophils # (Auto) 0.1 x10^3/uL Basophils # (Auto) 0.1 x10^3/uL Sodium Level 143 mmol/L Potassium Level 3.4 mmol/L Chloride Level 105 mmol/L Carbon Dioxide Level 27 mmol/L Anion Gap 11 Blood Urea Nitrogen 9 mg/dL Creatinine 0.7 mg/dL Estimated GFR (Cockcroft-Gault) 87.2 BUN/Creatinine Ratio 13 Glucose Level 83 mg/dL Calcium Level 8.6 mg/dL Total Bilirubin 0.5 mg/dL Aspartate Amino Transf (AST/SGOT) 16 U/L Alanine Aminotransferase (ALT/SGPT) 11 U/L Alkaline Phosphatase 82 U/L Total Protein 5.7 g/dL Albumin 2.9 g/dL Albumin/Globulin Ratio 1.0 PE: GEN: NAD, nurse present NEURO/PSYCH: tearful, sitting on toilet A/P: Suprapubic and back pain - not clearly a GI issue H/o hemorrhoids - had a colonoscopy at <1 month ago Nausea, decreased appetite - h/o GERD, s/p lauri, h/o normal GES B12 deficiency -- ?pain management - indicates she has seen Dr. Sprague in the past Defer her questions re: home meds to hospitalist. Again discussed possibility of hemorrhoidal bleeding and possibility that pain is unrelated to GI issue. Also reviewed her extensive GI workup (listed in consult note on 08/22). As yesterday, ADAT. Hemodynamically unstable?: No Is patient in severe pain?: Yes Is NPO status required?: No PANKAJ NICE Aug 23, 2019 09:58
--- NOTE | 2019-08-23 11:00 | PDOC ---
PROGRESS NOTES History of Present Illness History of Present Illness VTE Prophylaxis Ordered VTE Prophylaxis Devices: Yes VTE Pharmacological Prophylaxi: Contraindicated Assessment/Plan Assessment/Plan Impression: Chest pain Intermittent hematemesis, chronic hematochezia, nausea, Morbid obesity: GI bleed, Acute HX CAD reports abnormal cardiac cath [address] HIGHTOWER HERE HX diverticulosis HX Internal hemorrhoids. tobacco abuse disorder HYPOKALEMIA, REPLACE 08/23 2 GM drop in hgb, would be turner to monitor D/W RN PLAN ADMIT GI CONSULT ADAT Cardiology consult serial troponin i scd's po protonix AM LABS REPLACE K Vitals Vitals Vital Signs Date Time Temp Pulse Resp B/P (MAP) Pulse Ox O2 Delivery O2 Flow Rate FiO2 08/23/19 09:41 96 Room Air 08/23/19 07:11 98.3 78 18 131/65 (87) 98.3 Physical Exam General: Alert, Oriented X3, Cooperative, No acute distress, mild distress Heart: Regular rate Lungs: Clear Abdomen: Normal bowel sounds, Soft Extremities: No clubbing, No cyanosis, No edema Labs LABS Laboratory Tests Test 08/23/19 04:00 White Blood Count 7.1 x10^3/uL (4.0-11.0) Red Blood Count 4.09 x10^6/uL (3.50-5.40) Hemoglobin 11.7 g/dL (12.0-15.5) Hematocrit 35.3 % (36.0-47.0) Mean Corpuscular Volume 86 fL (79-100) Mean Corpuscular Hemoglobin 29 pg (25-35) Mean Corpuscular Hemoglobin Concent 33 g/dL (31-37) Red Cell Distribution Width 14.4 % (11.5-14.5) Platelet Count 226 x10^3/uL (140-400) Neutrophils (%) (Auto) 56 % (31-73) Lymphocytes (%) (Auto) 34 % (24-48) Monocytes (%) (Auto) 8 % (0-9) Eosinophils (%) (Auto) 2 % (0-3) Basophils (%) (Auto) 1 % (0-3) Neutrophils # (Auto) 3.9 x10^3/uL (1.8-7.7) Lymphocytes # (Auto) 2.4 x10^3/uL (1.0-4.8) Monocytes # (Auto) 0.5 x10^3/uL (0.0-1.1) Eosinophils # (Auto) 0.1 x10^3/uL (0.0-0.7) Basophils # (Auto) 0.1 x10^3/uL (0.0-0.2) Sodium Level 143 mmol/L (136-145) Potassium Level 3.4 mmol/L (3.5-5.1) Chloride Level 105 mmol/L (98-107) Carbon Dioxide Level 27 mmol/L (21-32) Anion Gap 11 (6-14) Blood Urea Nitrogen 9 mg/dL (7-20) Creatinine 0.7 mg/dL (0.6-1.0) Estimated GFR (Cockcroft-Gault) 87.2 BUN/Creatinine Ratio 13 (6-20) Glucose Level 83 mg/dL (70-99) Calcium Level 8.6 mg/dL (8.5-10.1) Total Bilirubin 0.5 mg/dL (0.2-1.0) Aspartate Amino Transf (AST/SGOT) 16 U/L (15-37) Alanine Aminotransferase (ALT/SGPT) 11 U/L (14-59) Alkaline Phosphatase 82 U/L (46-116) Total Protein 5.7 g/dL (6.4-8.2) Albumin 2.9 g/dL (3.4-5.0) Albumin/Globulin Ratio 1.0 (1.0-1.7) Assessment and Plan Assessmemt and Plan Problems Medical Problems: (1) Chest pain Status: Acute (2) GI bleed Status: Acute Comment Review of Relevant I have reviewed the following items marleny (where applicable) has been applied. Labs Laboratory Tests Test 08/21/19 19:30 08/21/19 19:38 08/21/19 20:22 08/22/19 04:08 White Blood Count 9.1 x10^3/uL (4.0-11.0) Red Blood Count 4.82 x10^6/uL (3.50-5.40) Hemoglobin 13.7 g/dL (12.0-15.5) Hematocrit 41.3 % (36.0-47.0) Mean Corpuscular Volume 86 fL (79-100) Mean Corpuscular Hemoglobin 28 pg (25-35) Mean Corpuscular Hemoglobin Concent 33 g/dL (31-37) Red Cell Distribution Width 14.4 % (11.5-14.5) Platelet Count 292 x10^3/uL (140-400) Neutrophils (%) (Auto) 60 % (31-73) Lymphocytes (%) (Auto) 31 % (24-48) Monocytes (%) (Auto) 7 % (0-9) Eosinophils (%) (Auto) 1 % (0-3) Basophils (%) (Auto) 0 % (0-3) Neutrophils # (Auto) 5.5 x10^3/uL (1.8-7.7) Lymphocytes # (Auto) 2.8 x10^3/uL (1.0-4.8) Monocytes # (Auto) 0.7 x10^3/uL (0.0-1.1) Eosinophils # (Auto) 0.1 x10^3/uL (0.0-0.7) Basophils # (Auto) 0.0 x10^3/uL (0.0-0.2) Sodium Level 140 mmol/L (136-145) Potassium Level 3.6 mmol/L (3.5-5.1) Chloride Level 102 mmol/L (98-107) Carbon Dioxide Level 30 mmol/L (21-32) Anion Gap 8 (6-14) Blood Urea Nitrogen 13 mg/dL (7-20) Creatinine 0.8 mg/dL (0.6-1.0) Estimated GFR (Cockcroft-Gault) 74.7 BUN/Creatinine Ratio 16 (6-20) Glucose Level 90 mg/dL (70-99) Calcium Level 9.3 mg/dL (8.5-10.1) Total Bilirubin 0.5 mg/dL (0.2-1.0) Aspartate Amino Transf (AST/SGOT) 14 U/L (15-37) Alanine Aminotransferase (ALT/SGPT) 16 U/L (14-59) Alkaline Phosphatase 105 U/L (46-116) Troponin I Quantitative < 0.017 ng/mL (0.000-0.055) < 0.017 ng/mL (0.000-0.055) Total Protein 7.5 g/dL (6.4-8.2) Albumin 3.8 g/dL (3.4-5.0) Albumin/Globulin Ratio 1.0 (1.0-1.7) Lipase 75 U/L (73-393) Prothrombin Time 12.5 SEC (11.7-14.0) Prothromb Time International Ratio 1.0 (0.8-1.1) Activated Partial Thromboplast Time 30 SEC (24-38) Urine Collection Type Unknown Urine Color Yellow Urine Clarity Clear Urine pH 7.0 Urine Specific [place] <=1.005 Urine Protein Negative mg/dL (NEG-TRACE) Urine Glucose (UA) Negative mg/dL (NEG) Urine Ketones (Stick) Negative mg/dL (NEG) Urine Blood Negative (NEG) Urine Nitrite Negative (NEG) Urine Bilirubin Negative (NEG) Urine Urobilinogen Dipstick 1.0 mg/dL (0.2 mg/dL) Urine Leukocyte Esterase Negative (NEG) Urine RBC Occ /HPF (0-2) Urine WBC 1-4 /HPF (0-4) Urine Squamous Epithelial Cells Few /LPF Urine Bacteria Few /HPF (0-FEW) Test 08/22/19 07:24 08/23/19 04:00 Troponin I Quantitative < 0.017 ng/mL (0.000-0.055) White Blood Count 7.1 x10^3/uL (4.0-11.0) Red Blood Count 4.09 x10^6/uL (3.50-5.40) Hemoglobin 11.7 g/dL (12.0-15.5) Hematocrit 35.3 % (36.0-47.0) Mean Corpuscular Volume 86 fL (79-100) Mean Corpuscular Hemoglobin 29 pg (25-35) Mean Corpuscular Hemoglobin Concent 33 g/dL (31-37) Red Cell Distribution Width 14.4 % (11.5-14.5) Platelet Count 226 x10^3/uL (140-400) Neutrophils (%) (Auto) 56 % (31-73) Lymphocytes (%) (Auto) 34 % (24-48) Monocytes (%) (Auto) 8 % (0-9) Eosinophils (%) (Auto) 2 % (0-3) Basophils (%) (Auto) 1 % (0-3) Neutrophils # (Auto) 3.9 x10^3/uL (1.8-7.7) Lymphocytes # (Auto) 2.4 x10^3/uL (1.0-4.8) Monocytes # (Auto) 0.5 x10^3/uL (0.0-1.1) Eosinophils # (Auto) 0.1 x10^3/uL (0.0-0.7) Basophils # (Auto) 0.1 x10^3/uL (0.0-0.2) Sodium Level 143 mmol/L (136-145) Potassium Level 3.4 mmol/L (3.5-5.1) Chloride Level 105 mmol/L (98-107) Carbon Dioxide Level 27 mmol/L (21-32) Anion Gap 11 (6-14) Blood Urea Nitrogen 9 mg/dL (7-20) Creatinine 0.7 mg/dL (0.6-1.0) Estimated GFR (Cockcroft-Gault) 87.2 BUN/Creatinine Ratio 13 (6-20) Glucose Level 83 mg/dL (70-99) Calcium Level 8.6 mg/dL (8.5-10.1) Total Bilirubin 0.5 mg/dL (0.2-1.0) Aspartate Amino Transf (AST/SGOT) 16 U/L (15-37) Alanine Aminotransferase (ALT/SGPT) 11 U/L (14-59) Alkaline Phosphatase 82 U/L (46-116) Total Protein 5.7 g/dL (6.4-8.2) Albumin 2.9 g/dL (3.4-5.0) Albumin/Globulin Ratio 1.0 (1.0-1.7) Laboratory Tests Test 08/23/19 04:00 White Blood Count 7.1 x10^3/uL (4.0-11.0) Red Blood Count 4.09 x10^6/uL (3.50-5.40) Hemoglobin 11.7 g/dL (12.0-15.5) Hematocrit 35.3 % (36.0-47.0) Mean Corpuscular Volume 86 fL (79-100) Mean Corpuscular Hemoglobin 29 pg (25-35) Mean Corpuscular Hemoglobin Concent 33 g/dL (31-37) Red Cell Distribution Width 14.4 % (11.5-14.5) Platelet Count 226 x10^3/uL (140-400) Neutrophils (%) (Auto) 56 % (31-73) Lymphocytes (%) (Auto) 34 % (24-48) Monocytes (%) (Auto) 8 % (0-9) Eosinophils (%) (Auto) 2 % (0-3) Basophils (%) (Auto) 1 % (0-3) Neutrophils # (Auto) 3.9 x10^3/uL (1.8-7.7) Lymphocytes # (Auto) 2.4 x10^3/uL (1.0-4.8) Monocytes # (Auto) 0.5 x10^3/uL (0.0-1.1) Eosinophils # (Auto) 0.1 x10^3/uL (0.0-0.7) Basophils # (Auto) 0.1 x10^3/uL (0.0-0.2) Sodium Level 143 mmol/L (136-145) Potassium Level 3.4 mmol/L (3.5-5.1) Chloride Level 105 mmol/L (98-107) Carbon Dioxide Level 27 mmol/L (21-32) Anion Gap 11 (6-14) Blood Urea Nitrogen 9 mg/dL (7-20) Creatinine 0.7 mg/dL (0.6-1.0) Estimated GFR (Cockcroft-Gault) 87.2 BUN/Creatinine Ratio 13 (6-20) Glucose Level 83 mg/dL (70-99) Calcium Level 8.6 mg/dL (8.5-10.1) Total Bilirubin 0.5 mg/dL (0.2-1.0) Aspartate Amino Transf (AST/SGOT) 16 U/L (15-37) Alanine Aminotransferase (ALT/SGPT) 11 U/L (14-59) Alkaline Phosphatase 82 U/L (46-116) Total Protein 5.7 g/dL (6.4-8.2) Albumin 2.9 g/dL (3.4-5.0) Albumin/Globulin Ratio 1.0 (1.0-1.7) Medications Current Medications Pantoprazole Sodium (PROTONIX VIAL for IV PUSH) 40 mg 1X ONCE IVP Last administered on 08/21/19at 20:03; Start 08/21/19 at 19:45; Stop 08/21/19 at 19:46; Status DC Pantoprazole Sodium 80 mg/ Sodium Chloride 100 ml @ 10 mls/hr Q10H IV Last administered on 08/21/19at 20:03; Start 08/21/19 at 19:45; Stop 08/22/19 at 10:06; Status DC Fentanyl Citrate (Fentanyl 2ml Vial) 50 mcg 1X ONCE IM ; Start 08/21/19 at 22:15; Stop 08/21/19 at 22:16; Status DC Ondansetron HCl (Zofran) 4 mg 1X ONCE IVP Last administered on 08/21/19at 22:49; Start 08/21/19 at 22:15; Stop 08/21/19 at 22:16; Status DC Fentanyl Citrate (Fentanyl 2ml Vial) 50 mcg 1X ONCE IVP Last administered on 08/21/19at 22:50; Start 08/21/19 at 22:00; Stop 08/21/19 at 22:54; Status DC Ondansetron HCl (Zofran) 4 mg PRN Q8HRS PRN IV NAUSEA/VOMITING Last administered on 08/22/19at 20:39; Start 08/22/19 at 01:30; Stop 08/23/19 at 01:29; Status DC Fentanyl Citrate (Fentanyl 2ml Vial) 50 mcg PRN Q2HR PRN IV PAIN Last administered on 08/23/19at 09:41; Start 08/22/19 at 01:30 Sodium Chloride 1,000 ml @ 100 mls/hr Q10H IV Last administered on 08/22/19at 04:30; Start 08/22/19 at 01:30; Stop 08/23/19 at 01:29; Status DC Pantoprazole Sodium (Protonix) 40 mg BIDAC PO Last administered on 08/23/19at 09:05; Start 08/22/19 at 16:30 Sucralfate (Carafate) 1 gm BID PO Last administered on 08/22/19 14:22; Start 08/22/19 at 10:00 Psyllium Hydrophilic Mucilloid (Metamucil Fiber Packet) 1 pkt DAILY PO Last administered on 08/23/19 09:05; Start 08/23/19 at 09:00 Cyanocobalamin (Vitamin B-12) 1,000 mcg DAILY PO Last administered on 08/23/19at 09:05; Start 08/23/19 at 09:00 Dicyclomine HCl (Bentyl) 10 mg PRN TID PRN PO abd pain; Start 08/22/19 at 10:15 Pharmacy Consult (C.diff Med Screen By Rx) 1 each 1X ONCE [facility] ; Start 08/22/19 at 10:15; Stop 08/22/19 at 10:18; Status DC Sodium Chloride (Normal Saline Flush) 3 ml QSHIFT PRN IV AFTER MEDS AND BLOOD DRAWS; Start 08/22/19 at 11:30 Sodium Chloride 1,000 ml @ 100 mls/hr Q10H IV Last administered on 08/22/19at 23:36; Start 08/22/19 at 11:16 Ondansetron HCl (Zofran) 4 mg PRN Q4HRS PRN IV NAUSEA/VOMITING; Start 08/22/19 at 11:30 Acetaminophen (Tylenol) 650 mg PRN Q4HRS PRN PO TEMP OVER 100.4F OR MILD PAIN; Start 08/22/19 at 11:30 Al Hydroxide/Mg Hydroxide (Mylanta Plus Xs) 30 ml PRN DAILY PRN PO HEARTBURN / GAS; Start 08/22/19 at 11:30 Clonidine HCl (Catapres) 0.1 mg PRN Q6HRS PRN PO SBP>160 OR DBP>90; Start 08/22/19 at 11:30 Docusate Sodium (Colace) 100 mg PRN BID PRN PO CONSTIPATION; Start 08/22/19 at 11:30 Albuterol Sulfate (Ventolin Neb Soln) 2.5 mg PRN Q4HRS PRN NEB SHORTNESS OF BREATH; Start 08/22/19 at 11:30 Guaifenesin (Robitussin) 200 mg PRN Q4HRS PRN PO COUGH; Start 08/22/19 at 11:30 Lorazepam (Ativan) 0.5 mg PRN Q4HRS PRN PO ANXIETY / AGITATION Last administered on 08/22/19at 23:39; Start 08/22/19 at 11:30 Active Scripts Active Atrovent Hfa (Ipratropium [place]) 12.9 Gm Hfa.aer.ad 2 Puff IH QID Promethazine-Dm Syrup (D-Methorphan Hb/Prometh Hcl) 118 Ml Syrup 5 Ml PO PRN Q4HRS Diclofenac Sodium 50 Mg Tablet.dr 1 Tab PO BID Hydrocodone-Apap 7.5-325 (Hydrocodone Bit/Acetaminophen) 1 Each Tablet 1 Tab PO PRN Q6HRS PRN Lidocaine PATCH (Lidocaine) 1 Each Adh..patch 1 Patch TD DAILY Hydrocodone-Apap 10-325 (Hydrocodone Bit/Acetaminophen) 1 Each Tablet 1 Tab PO PRN Q6HRS PRN Ativan (Lorazepam) 0.5 Mg Tablet 0.5 Mg PO PRN Q8HRS PRN Pantoprazole Sodium (Pantoprazole Sodium) 40 Mg Tablet.dr 40 Mg PO DAILYAC Metoprolol Tartrate 25 Mg Tablet 25 Mg PO BID Atorvastatin Calcium 20 Mg Tablet 20 Mg PO QHS Reported Proair Hfa (Albuterol Sulfate) 8.5 Gm Hfa.aer.ad 1 Puff INH PRN QID PRN Metoprolol Tartrate 25 Mg Tablet 25 Mg PO BID Gabapentin (Gabapentin) 300 Mg Capsule 300 Mg PO TID Dicyclomine Hcl 10 Mg Capsule 10 Mg PO QID B-12 (Cyanocobalamin (Vitamin B-12)) 2,500 Mcg Tab.subl 1 Tab SL DAILY 30 Days Symbicort 160-4.5 Mcg Inhaler (Budesonide/Formoterol Fumarate) 10.2 Gm Hfa.aer.ad 2 Puff IH BID Simvastatin 20 Mg Tablet 20 Mg PO HS Ondansetron Odt (Ondansetron) 8 Mg Tab.rapdis 8 Mg PO PRN Q8HRS Lisinopril 10 Mg Tablet 10 Mg PO DAILY Duloxetine Hcl 30 Mg Capsule.dr 30 Mg PO BID Clonazepam 1 Mg Tablet 1 Mg PO TID Sucralfate 1 Gm Tablet 1 Gm PO QIDACHS Cyclobenzaprine Hcl 5 Mg Tablet 5 Mg PO TID Aspir 81 (Aspirin) 81 Mg Tablet.dr 1 Tab PO DAILY Vitals/I & O Vital Sign - Last 24 Hours 08/22/19 08/22/19 08/22/19 08/22/19 11:00 14:12 14:23 14:53 Temp 97.6 97.6 Pulse 75 80 Resp 15 15 B/P (MAP) 165/77 (106) 135/65 (88) Pulse Ox 96 99 99 99 O2 Delivery Room Air Room Air Room Air Room Air 08/22/19 08/22/19 08/22/19 2/13/20 19:00 20:00 23:20 03:25 Temp 98.7 98.4 98.2 98.7 98.4 98.2 Pulse 76 69 67 Resp 18 20 B/P (MAP) 124/65 (84) 129/44 (72) 122/56 (78) Pulse Ox 96 97 96 O2 Delivery Room Air Room Air Room Air Room Air 08/23/19 08/23/19 07:11 09:41 Temp 98.3 98.3 Pulse 78 Resp 18 B/P (MAP) 131/65 (87) Pulse Ox 96 96 O2 Delivery Room Air Room Air Intake and Output 08/22/19 08/22/19 08/23/19 15:00 23:00 07:00 Intake Total 880 ml Balance 880 ml Hemodynamically unstable?: No Is patient in severe pain?: Yes Is NPO status required?: No SHAHBAZ TELLEZ MD Aug 23, 2019 11:00
--- NOTE | 2019-08-23 11:06 | PDOC2 ---
ABHI AVERY WINDOWS TECHNICAL SPECIALIST 08/23/19 1106: CARDIAC CONSULT DATE OF CONSULT Date of Consult DATE: 08/23/19 TIME: 10:48 REASON FOR CONSULT Reason for Consult: Chest pain REFERRING PHYSICIAN Referring Physician: Fullbright SOURCE Source: Chart review, Patient HISTORY OF PRESENT ILLNESS HISTORY OF PRESENT ILLNESS This is a 53 yo female admitted for complains of feeling more tired and chest and abdominal pain. Reports that she went to her PCP and told her to come to the hospital. Reports of mid chest pain particularly to epigastric sternal junction reproducible with palpation. Also with discomfort to left shoulder focal and reproducible with palpation. No changes to activity tolerance. No BERGMAN. She is quite irritated right now given. She was in [facility] few weeks ago and had EGD and clonoscopy and was told that she has esophagitis and erosions. No recent falls or injury. Also complianed at that time of hematemesis and some blood in stool which is the reson for her endoscopy. PAST MEDICAL HISTORY Past Medical History Cardiovascular: CAD, HTN, MS Pulmonary: Asthma, COPD CENTRAL NERVOUS SYSTEM: Migraine GI: GERD, Gastritis Musculoskeletal: low back pain, Osteoarthritis, Weakness, Swelling, Stiffness, Other Renal/: No pertinent hx Endocrine: No pertinent hx PAST SURGICAL HISTORY Past Surgical History Cholecystectomy, , Hernia Repair, LHC 3 yrs ago- no stent placed FAMILY HISTORY Family History: Hypertension SOCIAL HISTORY Smoke: No ALCOHOL: occassional Drugs: None CURRENT MEDICATIONS CURRENT MEDICATIONS Current Medications Medications (Trade) Dose Ordered Sig/Maggie Route PRN Reason Start Time Stop Time Status Last Admin Dose Admin Pantoprazole Sodium (Protonix) 40 mg BIDAC PO 08/22/19 16:30 08/23/19 09:05 Psyllium Hydrophilic Mucilloid (Metamucil Fiber Packet) 1 pkt DAILY PO 08/23/19 09:00 08/23/19 09:05 Cyanocobalamin (Vitamin B-12) 1,000 mcg DAILY PO 08/23/19 09:00 08/23/19 09:05 Sodium Chloride 1,000 ml @ 100 mls/hr Q10H IV 08/22/19 11:16 08/22/19 23:36 Lorazepam (Ativan) 0.5 mg PRN Q4HRS PRN PO ANXIETY / AGITATION 08/22/19 11:30 08/22/19 23:39 ALLERGIES ALLERGIES: Coded Allergies: Penicillins (Verified Allergy, Intermediate, hives, 06/26/15) amoxicillin (Verified Allergy, Intermediate, rash, 06/26/15) ceftriaxone (Verified Allergy, Intermediate, hives, 06/26/15) codeine (Verified Allergy, Intermediate, hives, 12/29/17) Tolerates hydrocodone doxycycline (Verified Allergy, Intermediate, rash, 06/26/15) egg (Verified Allergy, Intermediate, hives, 06/26/15) morphine (Verified Allergy, Intermediate, rash, 12/29/17) Tolerates hydrocodone ROS Review of System 14 point ROS evaluated with pertinent positives noted per HPI PHYSICAL EXAM General: Alert, Oriented X3, Cooperative, No acute distress HEENT: Atraumatic, Mucous membr. moist/pink Lungs: Clear to auscultation, Normal air movement Heart: Regular rate (SR), Normal S1, Normal S2, No murmurs Abdomen: Soft, Other (eigastric tenderness) Extremities: No cyanosis, No edema Skin: No breakdown, No significant lesion Neuro: Normal speech, Sensation intact Psych/Mental Status: Mental status NL, Other (irritable) MUSCULOSKELETAL: Osteoarthritic changes both hands VITALS/I&O VITALS/I&O: Vital Signs Date Time Temp Pulse Resp B/P (MAP) Pulse Ox O2 Delivery O2 Flow Rate FiO2 08/23/19 09:41 96 Room Air 08/23/19 07:11 98.3 78 18 131/65 (87) 98.3 I & O 08/22/19 08/22/19 08/23/19 15:00 23:00 07:00 Intake Total 880 ml Balance 880 ml LABS Lab: Laboratory Tests Test 08/23/19 04:00 White Blood Count 7.1 x10^3/uL (4.0-11.0) Red Blood Count 4.09 x10^6/uL (3.50-5.40) Hemoglobin 11.7 g/dL (12.0-15.5) L Hematocrit 35.3 % (36.0-47.0) L Mean Corpuscular Volume 86 fL (79-100) Mean Corpuscular Hemoglobin 29 pg (25-35) Mean Corpuscular Hemoglobin Concent 33 g/dL (31-37) Red Cell Distribution Width 14.4 % (11.5-14.5) Platelet Count 226 x10^3/uL (140-400) Neutrophils (%) (Auto) 56 % (31-73) Lymphocytes (%) (Auto) 34 % (24-48) Monocytes (%) (Auto) 8 % (0-9) Eosinophils (%) (Auto) 2 % (0-3) Basophils (%) (Auto) 1 % (0-3) Neutrophils # (Auto) 3.9 x10^3/uL (1.8-7.7) Lymphocytes # (Auto) 2.4 x10^3/uL (1.0-4.8) Monocytes # (Auto) 0.5 x10^3/uL (0.0-1.1) Eosinophils # (Auto) 0.1 x10^3/uL (0.0-0.7) Basophils # (Auto) 0.1 x10^3/uL (0.0-0.2) Sodium Level 143 mmol/L (136-145) Potassium Level 3.4 mmol/L (3.5-5.1) L Chloride Level 105 mmol/L (98-107) Carbon Dioxide Level 27 mmol/L (21-32) Anion Gap 11 (6-14) Blood Urea Nitrogen 9 mg/dL (7-20) Creatinine 0.7 mg/dL (0.6-1.0) Estimated GFR (Cockcroft-Gault) 87.2 BUN/Creatinine Ratio 13 (6-20) Glucose Level 83 mg/dL (70-99) Calcium Level 8.6 mg/dL (8.5-10.1) Total Bilirubin 0.5 mg/dL (0.2-1.0) Aspartate Amino Transferase (AST) 16 U/L (15-37) Alanine Aminotransferase (ALT) 11 U/L (14-59) L Alkaline Phosphatase 82 U/L (46-116) Total Protein 5.7 g/dL (6.4-8.2) L Albumin 2.9 g/dL (3.4-5.0) L Albumin/Globulin Ratio 1.0 (1.0-1.7) Laboratory Tests 08/23/19 04:00 Laboratory Tests 08/23/19 04:00 ASSESSMENT/PLAN ASSESSMENT/PLAN 1. Atypical CP: noncardiac 2. Abdominal pain: reportedly recent EGD and colonoscopy 08/09/2019 at with reported esophagitis 3. Anxiety 4. Tobaccoism 5. CAD? unclear details 6. HTN: controlled 7. HLP 8. Morbid obesity Recommendations 1. Follow GI recommendations 2. Continue with home statin and BP regimen 3. Nothing further cardiac turner, follow up with her outpt product assembler. 4. Smoking cessation BILL PARKER MD 08/23/192046: CARDIAC CONSULT ASSESSMENT/PLAN ASSESSMENT/PLAN Patient seen and examined. Agree with SECURITY CONTROLS ASSESSOR's assessment and plan. CP very atypical, non cardiac and most probably GI etiology MS ruled out Continue workup per GI No further cardiac w/u is indicated at this time Thank you for your consultation ABHI AVERY APRN Aug 23, 2019 11:06 BILL PARKER MD Aug 23, 2019 20:47
[2019-08-23 11:09] VITALS: BP 139/75
[2019-08-23] MEDS ORDERED: POTASSIUM CHLORIDE 20 MEQ TABLET.ER. PO ONE (12:00)
[2019-08-23] MEDS: IV NORMAL SALINE 1000ML BAG 1,000 ML IV SCH ×2 (13:43→17:16)
[2019-08-23] MEDS: GABAPENTIN 300 MG CAPSULE. PO SCH ×2 (15:03→21:33)
[2019-08-23] MEDS: LISINOPRIL 10 MG TABLET PO SCH (15:03)
[2019-08-23 15:04] VITALS: BP 121/75
[2019-08-23] MEDS: CYCLOBENZAPRINE 10 MG TABLET. PO SCH ×2 (15:04→21:33)
[2019-08-23] MEDS: clonazePAM 0.5 MG TABLET PO SCH ×2 (15:04→21:32)
[2019-08-23] MEDS: DICYCLOMINE HCL 10 MG CAPSULE PO SCH ×2 (17:15→21:33)
[2019-08-23 19:40] VITALS: BP 98/59
[2019-08-23] MEDS ORDERED: SIMVASTATIN 20 MG TABLET PO SCH (21:00)
[2019-08-23] MEDS: DULoxetine HCL 30 MG CAPSULE.DR PO SCH (21:00)
[2019-08-23] MEDS: DICLOFENAC SODIUM 25 MG TABLET.DR PO SCH (21:32)
[2019-08-23] MEDS: METOPROLOL TART IMMED RELEASE 25 MG TABLET. PO SCH (21:34)
[2019-08-23 23:35] VITALS: BP 99/44
[2019-08-24] MEDS: LORazepam 0.5 MG TABLET PO PRN (00:19)
[2019-08-24] MEDS: IV NORMAL SALINE 1000ML BAG 1,000 ML IV SCH ×2 (00:31→12:39)
[2019-08-24 03:40] VITALS: BP 113/62
[2019-08-24 05:06] LABS: BASO # 0.1 x10^3/uL (0.0-0.2); BASO % 1 % (0-3); EOS # 0.1 x10^3/uL (0.0-0.7); EOS % 1 % (0-3); HEMATOCRIT 33.5 % (36.0-47.0); HEMOGLOBIN 11.3 g/dL (12.0-15.5); LYMPH # 2.6 x10^3/uL (1.0-4.8); LYMPH % 31 % (24-48); MEAN CORPUSCULAR HEMOGLOBIN 29 pg (25-35); MEAN CORPUSCULAR HGB CONC 34 g/dL (31-37); MEAN CORPUSCULAR VOLUME 86 fL (79-100); MONO # 0.7 x10^3/uL (0.0-1.1); MONO % 9 % (0-9); NEUT # 4.8 x10^3/uL (1.8-7.7); NEUT % 58 % (31-73); PLATELET COUNT 222 x10^3/uL (140-400); RED BLOOD COUNT 3.89 x10^6/uL (3.50-5.40); RED CELL DISTRIBUTION WIDTH 14.1 % (11.5-14.5); WHITE BLOOD COUNT 8.3 x10^3/uL (4.0-11.0)
[2019-08-24 05:07] LABS: CALCIUM 8.7 mg/dL (8.5-10.1); CREATININE 0.8 mg/dL (0.6-1.0); GFR 74.7; POTASSIUM 3.8 mmol/L (3.5-5.1)
[2019-08-24] MEDS: fentaNYL PF VIAL 100 MCG/2 ML VIAL IV PRN (07:03)
[2019-08-24 08:00] VITALS: BP_SYST 117; BP_SYST 186; BP_DIAS 46; BP_DIAS 79
[2019-08-24] MEDS ORDERED: POTASSIUM CHLORIDE 20 MEQ TABLET.ER. PO SCH (08:00)
--- NOTE | 2019-08-24 08:22 | PDOC ---
PROGRESS NOTES History of Present Illness History of Present Illness VTE Prophylaxis Ordered VTE Prophylaxis Devices: Yes VTE Pharmacological Prophylaxi: Contraindicated DISCHARGE DX Assessment/Plan Impression: Chest pain Intermittent hematemesis, chronic hematochezia, nausea, Morbid obesity: GI bleed, Acute, RESOLVED HX CAD reports abnormal cardiac cath [address] HIGHTOWER HERE HX diverticulosis HX Internal hemorrhoids. tobacco abuse disorder HYPOKALEMIA, REPLACED 08/23 2 GM drop in hgb, would be turner to monitor 08/24 HGB STABLE D/C TODAY D/W RN PLAN ADMIT GI CONSULT ADAT Cardiology consult serial troponin i scd's po protonix AM LABS REPLACE K D/C PLANNING 33 MIN Vitals Vitals Vital Signs Date Time Temp Pulse Resp B/P (MAP) Pulse Ox O2 Delivery O2 Flow Rate FiO2 08/24/19 08:00 98.0 100 16 186/79 (114) 100 Room Air 98.0 Physical Exam General: Alert, Oriented X3, Cooperative, No acute distress Heart: Regular rate (SR), Normal S1, Normal S2, No murmurs Lungs: Clear Abdomen: Soft, Other (eigastric tenderness) Extremities: No cyanosis, No edema Skin: No breakdown, No significant lesion Labs LABS Laboratory Tests Test 08/24/19 03:30 White Blood Count 8.3 x10^3/uL (4.0-11.0) Red Blood Count 3.89 x10^6/uL (3.50-5.40) Hemoglobin 11.3 g/dL (12.0-15.5) Hematocrit 33.5 % (36.0-47.0) Mean Corpuscular Volume 86 fL (79-100) Mean Corpuscular Hemoglobin 29 pg (25-35) Mean Corpuscular Hemoglobin Concent 34 g/dL (31-37) Red Cell Distribution Width 14.1 % (11.5-14.5) Platelet Count 222 x10^3/uL (140-400) Neutrophils (%) (Auto) 58 % (31-73) Lymphocytes (%) (Auto) 31 % (24-48) Monocytes (%) (Auto) 9 % (0-9) Eosinophils (%) (Auto) 1 % (0-3) Basophils (%) (Auto) 1 % (0-3) Neutrophils # (Auto) 4.8 x10^3/uL (1.8-7.7) Lymphocytes # (Auto) 2.6 x10^3/uL (1.0-4.8) Monocytes # (Auto) 0.7 x10^3/uL (0.0-1.1) Eosinophils # (Auto) 0.1 x10^3/uL (0.0-0.7) Basophils # (Auto) 0.1 x10^3/uL (0.0-0.2) Sodium Level 142 mmol/L (136-145) Potassium Level 3.8 mmol/L (3.5-5.1) Chloride Level 106 mmol/L (98-107) Carbon Dioxide Level 29 mmol/L (21-32) Anion Gap 7 (6-14) Blood Urea Nitrogen 10 mg/dL (7-20) Creatinine 0.8 mg/dL (0.6-1.0) Estimated GFR (Cockcroft-Gault) 74.7 Glucose Level 92 mg/dL (70-99) Calcium Level 8.7 mg/dL (8.5-10.1) Assessment and Plan Assessmemt and Plan Problems Medical Problems: (1) Chest pain Status: Acute (2) GI bleed Status: Acute Comment Review of Relevant I have reviewed the following items marleny (where applicable) has been applied. Labs Laboratory Tests Test 08/23/19 04:00 08/24/19 03:30 White Blood Count 7.1 x10^3/uL (4.0-11.0) 8.3 x10^3/uL (4.0-11.0) Red Blood Count 4.09 x10^6/uL (3.50-5.40) 3.89 x10^6/uL (3.50-5.40) Hemoglobin 11.7 g/dL (12.0-15.5) 11.3 g/dL (12.0-15.5) Hematocrit 35.3 % (36.0-47.0) 33.5 % (36.0-47.0) Mean Corpuscular Volume 86 fL (79-100) 86 fL (79-100) Mean Corpuscular Hemoglobin 29 pg (25-35) 29 pg (25-35) Mean Corpuscular Hemoglobin Concent 33 g/dL (31-37) 34 g/dL (31-37) Red Cell Distribution Width 14.4 % (11.5-14.5) 14.1 % (11.5-14.5) Platelet Count 226 x10^3/uL (140-400) 222 x10^3/uL (140-400) Neutrophils (%) (Auto) 56 % (31-73) 58 % (31-73) Lymphocytes (%) (Auto) 34 % (24-48) 31 % (24-48) Monocytes (%) (Auto) 8 % (0-9) 9 % (0-9) Eosinophils (%) (Auto) 2 % (0-3) 1 % (0-3) Basophils (%) (Auto) 1 % (0-3) 1 % (0-3) Neutrophils # (Auto) 3.9 x10^3/uL (1.8-7.7) 4.8 x10^3/uL (1.8-7.7) Lymphocytes # (Auto) 2.4 x10^3/uL (1.0-4.8) 2.6 x10^3/uL (1.0-4.8) Monocytes # (Auto) 0.5 x10^3/uL (0.0-1.1) 0.7 x10^3/uL (0.0-1.1) Eosinophils # (Auto) 0.1 x10^3/uL (0.0-0.7) 0.1 x10^3/uL (0.0-0.7) Basophils # (Auto) 0.1 x10^3/uL (0.0-0.2) 0.1 x10^3/uL (0.0-0.2) Sodium Level 143 mmol/L (136-145) 142 mmol/L (136-145) Potassium Level 3.4 mmol/L (3.5-5.1) 3.8 mmol/L (3.5-5.1) Chloride Level 105 mmol/L (98-107) 106 mmol/L (98-107) Carbon Dioxide Level 27 mmol/L (21-32) 29 mmol/L (21-32) Anion Gap 11 (6-14) 7 (6-14) Blood Urea Nitrogen 9 mg/dL (7-20) 10 mg/dL (7-20) Creatinine 0.7 mg/dL (0.6-1.0) 0.8 mg/dL (0.6-1.0) Estimated GFR (Cockcroft-Gault) 87.2 74.7 BUN/Creatinine Ratio 13 (6-20) Glucose Level 83 mg/dL (70-99) 92 mg/dL (70-99) Calcium Level 8.6 mg/dL (8.5-10.1) 8.7 mg/dL (8.5-10.1) Total Bilirubin 0.5 mg/dL (0.2-1.0) Aspartate Amino Transf (AST/SGOT) 16 U/L (15-37) Alanine Aminotransferase (ALT/SGPT) 11 U/L (14-59) Alkaline Phosphatase 82 U/L (46-116) Total Protein 5.7 g/dL (6.4-8.2) Albumin 2.9 g/dL (3.4-5.0) Albumin/Globulin Ratio 1.0 (1.0-1.7) Laboratory Tests Test 08/24/19 03:30 White Blood Count 8.3 x10^3/uL (4.0-11.0) Red Blood Count 3.89 x10^6/uL (3.50-5.40) Hemoglobin 11.3 g/dL (12.0-15.5) Hematocrit 33.5 % (36.0-47.0) Mean Corpuscular Volume 86 fL (79-100) Mean Corpuscular Hemoglobin 29 pg (25-35) Mean Corpuscular Hemoglobin Concent 34 g/dL (31-37) Red Cell Distribution Width 14.1 % (11.5-14.5) Platelet Count 222 x10^3/uL (140-400) Neutrophils (%) (Auto) 58 % (31-73) Lymphocytes (%) (Auto) 31 % (24-48) Monocytes (%) (Auto) 9 % (0-9) Eosinophils (%) (Auto) 1 % (0-3) Basophils (%) (Auto) 1 % (0-3) Neutrophils # (Auto) 4.8 x10^3/uL (1.8-7.7) Lymphocytes # (Auto) 2.6 x10^3/uL (1.0-4.8) Monocytes # (Auto) 0.7 x10^3/uL (0.0-1.1) Eosinophils # (Auto) 0.1 x10^3/uL (0.0-0.7) Basophils # (Auto) 0.1 x10^3/uL (0.0-0.2) Sodium Level 142 mmol/L (136-145) Potassium Level 3.8 mmol/L (3.5-5.1) Chloride Level 106 mmol/L (98-107) Carbon Dioxide Level 29 mmol/L (21-32) Anion Gap 7 (6-14) Blood Urea Nitrogen 10 mg/dL (7-20) Creatinine 0.8 mg/dL (0.6-1.0) Estimated GFR (Cockcroft-Gault) 74.7 Glucose Level 92 mg/dL (70-99) Calcium Level 8.7 mg/dL (8.5-10.1) Medications Current Medications Pantoprazole Sodium (PROTONIX VIAL for IV PUSH) 40 mg 1X ONCE IVP Last administered on 08/21/19at 20:03; Start 08/21/19 at 19:45; Stop 08/21/19 at 19:46; Status DC Pantoprazole Sodium 80 mg/ Sodium Chloride 100 ml @ 10 mls/hr Q10H IV Last administered on 08/21/19at 20:03; Start 08/21/19 at 19:45; Stop 08/22/19 at 10:06; Status DC Fentanyl Citrate (Fentanyl 2ml Vial) 50 mcg 1X ONCE IM ; Start 08/21/19 at 22: 15; Stop 08/21/19 at 22:16; Status DC Ondansetron HCl (Zofran) 4 mg 1X ONCE IVP Last administered on 08/21/19at 22:49; Start 08/21/19 at 22:15; Stop 08/21/19 at 22:16; Status DC Fentanyl Citrate (Fentanyl 2ml Vial) 50 mcg 1X ONCE IVP Last administered on 08/21/19at 22:50; Start 08/21/19 at 22:00; Stop 08/21/19 at 22:54; Status DC Ondansetron HCl (Zofran) 4 mg PRN Q8HRS PRN IV NAUSEA/VOMITING Last administered on 08/22/19at 20:39; Start 08/22/19 at 01:30; Stop 08/23/19 at 01:29; Status DC Fentanyl Citrate (Fentanyl 2ml Vial) 50 mcg PRN Q2HR PRN IV PAIN Last administered on 08/24/19at 07:03; Start 08/22/19 at 01:30 Sodium Chloride 1,000 ml @ 100 mls/hr Q10H IV Last administered on 08/22/19at 04:30; Start 08/22/19 at 01:30; Stop 08/23/19 at 01:29; Status DC Pantoprazole Sodium (Protonix) 40 mg BIDAC PO Last administered on 08/23/19at 15:03; Start 08/22/19 at 16:30 Sucralfate (Carafate) 1 gm BID PO Last administered on 08/23/19at 21:33; Start 08/22/19 at 10:00 Psyllium Hydrophilic Mucilloid (Metamucil Fiber Packet) 1 pkt DAILY PO Last administered on 08/23/19at 09:05; Start 08/23/19 at 09:00 Cyanocobalamin (Vitamin B-12) 1,000 mcg DAILY PO Last administered on 08/23/19at 09:05; Start 08/23/19 at 09:00 Dicyclomine HCl (Bentyl) 10 mg PRN TID PRN PO abd pain; Start 08/22/19 at 10:15 Pharmacy Consult (C.diff Med Screen By Rx) 1 each 1X ONCE [facility] ; Start 08/22/19 at 10:15; Stop 08/22/19 at 10:18; Status DC Sodium Chloride (Normal Saline Flush) 3 ml QSHIFT PRN IV AFTER MEDS AND BLOOD DRAWS; Start 08/22/19 at 11:30 Sodium Chloride 1,000 ml @ 100 mls/hr Q10H IV Last administered on 08/24/19at 00:31; Start 08/22/19 at 11:16 Ondansetron HCl (Zofran) 4 mg PRN Q4HRS PRN IV NAUSEA/VOMITING Last administered on 08/24/19at 00:20; Start 08/22/19 at 11:30 Acetaminophen (Tylenol) 650 mg PRN Q4HRS PRN PO TEMP OVER 100.4F OR MILD PAIN; Start 08/22/19 at 11:30 Al Hydroxide/Mg Hydroxide (Mylanta Plus Xs) 30 ml PRN DAILY PRN PO HEARTBURN / GAS; Start 08/22/19 at 11:30 Clonidine HCl (Catapres) 0.1 mg PRN Q6HRS PRN PO SBP>160 OR DBP>90; Start 08/22/19 at 11:30 Docusate Sodium (Colace) 100 mg PRN BID PRN PO CONSTIPATION; Start 08/22/19 at 11:30 Albuterol Sulfate (Ventolin Neb Soln) 2.5 mg PRN Q4HRS PRN NEB SHORTNESS OF BREATH; Start 08/22/19 at 11:30 Guaifenesin (Robitussin) 200 mg PRN Q4HRS PRN PO COUGH; Start 08/22/19 at 11:30 Lorazepam (Ativan) 0.5 mg PRN Q4HRS PRN PO ANXIETY / AGITATION Last admin istered on 08/24/19at 00:19; Start 08/22/19 at 11:30 Potassium Chloride (Klor-Con) 40 meq 1X ONCE PO Last administered on 08/23/19at 14:14; Start 08/23/19 at 12:00; Stop 08/23/19 at 12:01; Status DC Potassium Chloride (Klor-Con) 20 meq DAILYWBKFT PO ; Start 08/24/19 at 08:00 Dicyclomine HCl (Bentyl) 10 mg QID PO Last administered on 08/23/19at 21:33; Start 08/23/19 at 17:00 Duloxetine HCl (Cymbalta) 30 mg BID PO Last administered on 08/23/19at 21:00; Start 08/23/19 at 21:00 Gabapentin (Neurontin) 300 mg TID PO Last administered on 08/23/19at 21:33; Start 08/23/19 at 15:00 Lisinopril (Prinivil) 10 mg DAILY PO Last administered on 08/23/19at 15:03; Start 08/23/19 at 15:00 Metoprolol Tartrate (Lopressor) 25 mg BID PO Last administered on 08/23/19at 21:34; Start 08/23/19 at 21:00 Simvastatin (Zocor) 20 mg HS PO Last administered on 08/23/19at 21:00; Start 2/13/20 at 21:00 Clonazepam (KlonoPIN) 1 mg TID PO Last administered on 08/23/19at 21:32; Start 08/23/19 at 15:00 Cyclobenzaprine HCl (Flexeril) 5 mg TID PO Last administered on 08/23/19at 21:33; Start 08/23/19 at 15:00 Diclofenac Sodium (Voltaren) 50 mg BID PO Last administered on 08/23/19at 21:32; Start 08/23/19 at 21:00 Active Scripts Active Atrovent Hfa (Ipratropium [place]) 12.9 Gm Hfa.aer.ad 2 Puff IH QID Promethazine-Dm Syrup (D-Methorphan Hb/Prometh Hcl) 118 Ml Syrup 5 Ml PO PRN Q4HRS Diclofenac Sodium 50 Mg Tablet.dr 1 Tab PO BID Hydrocodone-Apap 7.5-325 (Hydrocodone Bit/Acetaminophen) 1 Each Tablet 1 Tab PO PRN Q6HRS PRN Lidocaine PATCH (Lidocaine) 1 Each Adh..patch 1 Patch TD DAILY Hydrocodone-Apap 10-325 (Hydrocodone Bit/Acetaminophen) 1 Each Tablet 1 Tab PO PRN Q6HRS PRN Ativan (Lorazepam) 0.5 Mg Tablet 0.5 Mg PO PRN Q8HRS PRN Pantoprazole Sodium (Pantoprazole Sodium) 40 Mg Tablet.dr 40 Mg PO DAILYAC Metoprolol Tartrate 25 Mg Tablet 25 Mg PO BID Atorvastatin Calcium 20 Mg Tablet 20 Mg PO QHS Reported Proair Hfa (Albuterol Sulfate) 8.5 Gm Hfa.aer.ad 1 Puff INH PRN QID PRN Metoprolol Tartrate 25 Mg Tablet 25 Mg PO BID Gabapentin (Gabapentin) 300 Mg Capsule 300 Mg PO TID Dicyclomine Hcl 10 Mg Capsule 10 Mg PO QID B-12 (Cyanocobalamin (Vitamin B-12)) 2,500 Mcg Tab.subl 1 Tab SL DAILY 30 Days Symbicort 160-4.5 Mcg Inhaler (Budesonide/Formoterol Fumarate) 10.2 Gm Hfa.aer.ad 2 Puff IH BID Simvastatin 20 Mg Tablet 20 Mg PO HS Ondansetron Odt (Ondansetron) 8 Mg Tab.rapdis 8 Mg PO PRN Q8HRS Lisinopril 10 Mg Tablet 10 Mg PO DAILY Duloxetine Hcl 30 Mg Capsule. 30 Mg PO BID Clonazepam 1 Mg Tablet 1 Mg PO TID Sucralfate 1 Gm Tablet 1 Gm PO QIDACHS Cyclobenzaprine Hcl 5 Mg Tablet 5 Mg PO TID Aspir 81 (Aspirin) 81 Mg Tablet. 1 Tab PO DAILY Vitals/I & O Vital Sign - Last 24 Hours 08/23/19 08/23/19 08/23/19 08/23/19 09:41 11:00 11:09 14:13 Temp 97.6 97.6 Pulse 79 Resp 20 B/P (MAP) 139/75 (96) Pulse Ox 96 95 95 95 O2 Delivery Room Air Room Air Room Air Room Air 08/23/19 08/23/19 08/23/19 08/23/19 15:03 15:04 15:05 19:40 Temp 98.2 98.6 98.2 98.6 Pulse 79 99 83 Resp 18 18 B/P (MAP) 139/75 121/75 (90) 98/59 (72) Pulse Ox 97 95 95 O2 Delivery Room Air Room Air Room Air 08/23/19 08/23/19 08/23/19 08/23/19 19:48 20:00 20:18 21:34 Pulse 83 Resp 20 18 B/P (MAP) 102/59 Pulse Ox 95 O2 Delivery Room Air Room Air Room Air 08/23/19 08/24/19 08/24/19 08/24/19 23:35 03:40 07:03 08:00 Temp 98.1 98.4 98.0 98.1 98.4 98.0 Pulse 77 70 100 Resp 18 18 16 B/P (MAP) 99/44 (62) 113/62 (79) 186/79 (114) Pulse Ox 96 97 97 100 O2 Delivery Room Air Room Air Room Air Room Air Intake and Output 08/23/19 08/23/19 08/24/19 15:00 23:00 07:00 Intake Total 560 ml 750 ml Output Total 500 ml 1100 ml Balance 60 ml -1100 ml 750 ml Nutrition Consultation Dietary Evaluation: Recommendations by RD: Dietary education by RD Comments: rec advance diet to cardiac when able Expected Outcomes/Goals: to meet >75% est nutr needs Interpretation of weight loss: >10% in 6 months Malnutrition Findings: Food and Nutrition Intake (Sev: <50% est energy req 5days Weight Status: Obese Hemodynamically unstable?: No Is patient in severe pain?: Yes Is NPO status required?: No SHAHBAZ TELLEZ MD Aug 24, 2019 08:22
[2019-08-24] MEDS: DICLOFENAC SODIUM 25 MG TABLET.DR PO SCH (08:52)
[2019-08-24] MEDS: clonazePAM 0.5 MG TABLET PO SCH (08:52)
[2019-08-24] MEDS: SUCRALFATE 1 GM TABLET. PO SCH (08:53)
[2019-08-24] MEDS: CYANOCOBALAMIN (VITAMIN B-12) 1,000 MCG TABLET. PO SCH (08:53)
[2019-08-24] MEDS: CYCLOBENZAPRINE 10 MG TABLET. PO SCH (08:53)
[2019-08-24] MEDS: PANTOPRAZOLE 40 MG TABLET.DR. PO SCH (08:53)
[2019-08-24] MEDS: DICYCLOMINE HCL 10 MG CAPSULE PO SCH ×2 (08:54→12:52)
[2019-08-24] MEDS: DULoxetine HCL 30 MG CAPSULE.DR PO SCH (08:54)
[2019-08-24] MEDS: LISINOPRIL 10 MG TABLET PO SCH (08:54)
[2019-08-24] MEDS: PSYLLIUM HUSK (SUGAR FREE) 1 PKT PACKET PO SCH (08:56)
[2019-08-24] MEDS: GABAPENTIN 300 MG CAPSULE. PO SCH ×2 (09:05→12:52)
--- NOTE | 2019-08-24 10:43 | PDOC ---
Subjective: Subjective: Feels a little better. Ate all of breakfast. Took a shower yesterday and ripped the toenail off her pinky toe on the shower drain. Not sure she's ready to go home yet. Objective: Vital Signs: Vital Signs Date Time Temp Pulse Resp B/P (MAP) Pulse Ox O2 Delivery O2 Flow Rate FiO2 08/24/19 09:00 95 Room Air 08/24/19 08:54 61 117/46 08/24/19 08:00 97.4 16 97.4 Labs: Laboratory Tests Test 08/24/19 03:30 White Blood Count 8.3 x10^3/uL Red Blood Count 3.89 x10^6/uL Hemoglobin 11.3 g/dL Hematocrit 33.5 % Mean Corpuscular Volume 86 fL Mean Corpuscular Hemoglobin 29 pg Mean Corpuscular Hemoglobin Concent 34 g/dL Red Cell Distribution Width 14.1 % Platelet Count 222 x10^3/uL Neutrophils (%) (Auto) 58 % Lymphocytes (%) (Auto) 31 % Monocytes (%) (Auto) 9 % Eosinophils (%) (Auto) 1 % Basophils (%) (Auto) 1 % Neutrophils # (Auto) 4.8 x10^3/uL Lymphocytes # (Auto) 2.6 x10^3/uL Monocytes # (Auto) 0.7 x10^3/uL Eosinophils # (Auto) 0.1 x10^3/uL Basophils # (Auto) 0.1 x10^3/uL Sodium Level 142 mmol/L Potassium Level 3.8 mmol/L Chloride Level 106 mmol/L Carbon Dioxide Level 29 mmol/L Anion Gap 7 Blood Urea Nitrogen 10 mg/dL Creatinine 0.8 mg/dL Estimated GFR (Cockcroft-Gault) 74.7 Glucose Level 92 mg/dL Calcium Level 8.7 mg/dL PE: GEN: NAD LUNGS: CTAB HEART: RRR ABD: less suprapubic tenderness NEURO/PSYCH: A & O 3 A/P: Suprapubic and back pain H/o hemorrhoids, intermittent hematochezia - had a colonoscopy at <1 month ago Nausea, decreased appetite - better; h/o GERD on PPI, s/p lauri, h/o normal GES Anemia - pretty much baseline since 2014 B12 deficiency - on replacement here, not sure she takes at home -- DC per primary. Hemodynamically unstable?: No Is patient in severe pain?: Yes Is NPO status required?: No PANKAJ NICE Aug 24, 2019 10:43
--- NOTE | 2019-08-24 10:55 | PDOC3 ---
Discharge Summary Date of Admission: Aug 22, 2019 Date of Discharge: Aug 24, 2019 Follow-Up: 3-5 days Admitting Diagnosis comment: DISCHARGE DX Assessment/Plan Impression: Chest pain Intermittent hematemesis, chronic hematochezia, nausea, Morbid obesity: GI bleed, Acute, RESOLVED HX CAD reports abnormal cardiac cath [address] HIGHTOWER HERE HX diverticulosis HX Internal hemorrhoids. tobacco abuse disorder HYPOKALEMIA, REPLACED 08/23 2 GM drop in hgb, would be turner to monitor 08/24 HGB STABLE D/C TODAY D/W RN PLAN ADMIT GI CONSULT ADAT Cardiology consult serial troponin i scd's po protonix AM LABS REPLACE K D/C PLANNING 33 MIN SEE PCP TUESDAY Vitals Vitals Vital Signs Date Time Temp Pulse Resp B/P (MAP) Pulse Ox O2 Delivery O2 Flow Rate FiO2 08/24/19 08:00 98.0 100 16 186/79 (114) 100 Room Air 98.0 Physical Exam General: Alert, Oriented X3, Cooperative, No acute distress Heart: Regular rate (SR), Normal S1, Normal S2, No murmurs Lungs: Clear Abdomen: Soft, Other (eigastric tenderness) Extremities: No cyanosis, No edema Skin: No breakdown, No significant lesion FINAL DIAGNOSIS Problems Medical Problems: (1) Chest pain Status: Acute (2) GI bleed Status: Acute Brief Hospital Course Ms. Garza is a 53 old [sex] who presented with [RECTAL BLEEDING AFTER COLON BIOPSY ] CONDITION AT DISCHARGE: Improved Discharge Medications Current Medications Pantoprazole Sodium (PROTONIX VIAL for IV PUSH) 40 mg 1X ONCE IVP Last administered on 08/21/19at 20:03; Start 08/21/19 at 19:45; Stop 08/21/19 at 19:46; Status DC Pantoprazole Sodium 80 mg/ Sodium Chloride 100 ml @ 10 mls/hr Q10H IV Last administered on 08/21/19at 20:03; Start 08/21/19 at 19:45; Stop 08/22/19 at 10:06; Status DC Fentanyl Citrate (Fentanyl 2ml Vial) 50 mcg 1X ONCE IM ; Start 08/21/19 at 22:15; Stop 08/21/19 at 22:16; Status DC Ondansetron HCl (Zofran) 4 mg 1X ONCE IVP Last administered on 08/21/19at 22:49; Start 08/21/19 at 22:15; Stop 08/21/19 at 22:16; Status DC Fentanyl Citrate (Fentanyl 2ml Vial) 50 mcg 1X ONCE IVP Last administered on 08/21/19at 22:50; Start 08/21/19 at 22:00; Stop 08/21/19 at 22:54; Status DC Ondansetron HCl (Zofran) 4 mg PRN Q8HRS PRN IV NAUSEA/VOMITING Last administered on 08/22/19at 20:39; Start 08/22/19 at 01:30; Stop 08/23/19 at 01:29; Status DC Fentanyl Citrate (Fentanyl 2ml Vial) 50 mcg PRN Q2HR PRN IV PAIN Last administered on 08/24/19at 07:03; Start 08/22/19 at 01:30 Sodium Chloride 1,000 ml @ 100 mls/hr Q10H IV Last administered on 08/22/19at 04:30; Start 08/22/19 at 01:30; Stop 08/23/19 at 01:29; Status DC Pantoprazole Sodium (Protonix) 40 mg BIDAC PO Last administered on 08/24/19at 08:53; Start 08/22/19 at 16:30 Sucralfate (Carafate) 1 gm BID PO Last administered on 08/24/19at 08:53; Start 08/22/19 at 10:00 Psyllium Hydrophilic Mucilloid (Metamucil Fiber Packet) 1 pkt DAILY PO Last administered on 08/24/19at 08:56; Start 08/23/19 at 09:00 Cyanocobalamin (Vitamin B-12) 1,000 mcg DAILY PO Last administered on 08/24/19at 08:53; Start 08/23/19 at 09:00 Dicyclomine HCl (Bentyl) 10 mg PRN TID PRN PO abd pain; Start 08/22/19 at 10:15 Pharmacy Consult (C.diff Med Screen By Rx) 1 each 1X ONCE MC ; Start 08/22/19 at 10:15; Stop 08/22/19 at 10:18; Status DC Sodium Chloride (Normal Saline Flush) 3 ml QSHIFT PRN IV AFTER MEDS AND BLOOD DRAWS; Start 08/22/19 at 11:30 Sodium Chloride 1,000 ml @ 100 mls/hr Q10H IV Last administered on 08/24/19at 00:31; Start 08/22/19 at 11:16 Ondansetron HCl (Zofran) 4 mg PRN Q4HRS PRN IV NAUSEA/VOMITING Last administered on 08/24/19at 00:20; Start 08/22/19 at 11:30 Acetaminophen (Tylenol) 650 mg PRN Q4HRS PRN PO TEMP OVER 100.4F OR MILD PAIN; Start 08/22/19 at 11:30 Al Hydroxide/Mg Hydroxide (Mylanta Plus Xs) 30 ml PRN DAILY PRN PO HEARTBURN / GAS; Start 08/22/19 at 11:30 Clonidine HCl (Catapres) 0.1 mg PRN Q6HRS PRN PO SBP>160 OR DBP>90; Start 08/22/19 at 11:30 Docusate Sodium (Colace) 100 mg PRN BID PRN PO CONSTIPATION; Start 08/22/19 at 11:30 Albuterol Sulfate (Ventolin Neb Soln) 2.5 mg PRN Q4HRS PRN NEB SHORTNESS OF BREATH; Start 08/22/19 at 11:30 Guaifenesin (Robitussin) 200 mg PRN Q4HRS PRN PO COUGH; Start 08/22/19 at 11:30 Lorazepam (Ativan) 0.5 mg PRN Q4HRS PRN PO ANXIETY / AGITATION Last administered on 08/24/19at 00:19; Start 08/22/19 at 11:30 Potassium Chloride (Klor-Con) 40 meq 1X ONCE PO Last administered on 08/23/19at 14:14; Start 08/23/19 at 12:00; Stop 08/23/19 at 12:01; Status DC Potassium Chloride (Klor-Con) 20 meq DAILYWBKFT PO Last administered on 08/24/19at 08:54; Start 08/24/19 at 08:00 Dicyclomine HCl (Bentyl) 10 mg QID PO Last administered on 08/24/19at 08:54; Start 08/23/19 at 17:00 Duloxetine HCl (Cymbalta) 30 mg BID PO Last administered on 08/24/19at 08:54; Start 08/23/19 at 21:00 Gabapentin (Neurontin) 300 mg TID PO Last administered on 08/24/19at 09:05; Start 08/23/19 at 15:00 Lisinopril (Prinivil) 10 mg DAILY PO Last administered on 08/24/19at 08:54; Start 08/23/19 at 15:00 Metoprolol Tartrate (Lopressor) 25 mg BID PO Last administered on 08/23/19at 21:34; Start 08/23/19 at 21:00 Simvastatin (Zocor) 20 mg HS PO Last administered on 08/23/19at 21:00; Start 08/23/19 at 21:00 Clonazepam (KlonoPIN) 1 mg TID PO Last administered on 08/24/19at 08:52; Start 08/23/19 at 15:00 Cyclobenzaprine HCl (Flexeril) 5 mg TID PO Last administered on 08/24/19at 08:53; Start 08/23/19 at 15:00 Diclofenac Sodium (Voltaren) 50 mg BID PO Last administered on 08/24/19at 08:52; Start 08/23/19 at 21:00 Active Scripts Active Atrovent Hfa (Ipratropium [place]) 12.9 Gm Hfa.aer.ad 2 Puff IH QID Promethazine-Dm Syrup (D-Methorphan Hb/Prometh Hcl) 118 Ml Syrup 5 Ml PO PRN Q4HRS Diclofenac Sodium 50 Mg Tablet.dr 1 Tab PO BID Hydrocodone-Apap 7.5-325 (Hydrocodone Bit/Acetaminophen) 1 Each Tablet 1 Tab PO PRN Q6HRS PRN Lidocaine PATCH (Lidocaine) 1 Each Adh..patch 1 Patch TD DAILY Hydrocodone-Apap 10-325 (Hydrocodone Bit/Acetaminophen) 1 Each Tablet 1 Tab PO PRN Q6HRS PRN Ativan (Lorazepam) 0.5 Mg Tablet 0.5 Mg PO PRN Q8HRS PRN Pantoprazole Sodium (Pantoprazole Sodium) 40 Mg Tablet.dr 40 Mg PO DAILYAC Metoprolol Tartrate 25 Mg Tablet 25 Mg PO BID Atorvastatin Calcium 20 Mg Tablet 20 Mg PO QHS Reported Proair Hfa (Albuterol Sulfate) 8.5 Gm Hfa.aer.ad 1 Puff INH PRN QID PRN Metoprolol Tartrate 25 Mg Tablet 25 Mg PO BID Gabapentin (Gabapentin) 300 Mg Capsule 300 Mg PO TID Dicyclomine Hcl 10 Mg Capsule 10 Mg PO QID B-12 (Cyanocobalamin (Vitamin B-12)) 2,500 Mcg Tab.subl 1 Tab SL DAILY 30 Days Symbicort 160-4.5 Mcg Inhaler (Budesonide/Formoterol Fumarate) 10.2 Gm Hfa.aer.ad 2 Puff IH BID Simvastatin 20 Mg Tablet 20 Mg PO HS Ondansetron Odt (Ondansetron) 8 Mg Tab.rapdis 8 Mg PO PRN Q8HRS Lisinopril 10 Mg Tablet 10 Mg PO DAILY Duloxetine Hcl 30 Mg Capsule.dr 30 Mg PO BID Clonazepam 1 Mg Tablet 1 Mg PO TID Sucralfate 1 Gm Tablet 1 Gm PO QIDACHS Cyclobenzaprine Hcl 5 Mg Tablet 5 Mg PO TID Aspir 81 (Aspirin) 81 Mg Tablet.dr 1 Tab PO DAILY Vital Signs Vital Signs Date Time Temp Pulse Resp B/P (MAP) Pulse Ox O2 Delivery O2 Flow Rate FiO2 08/24/19 09:00 95 Room Air 08/24/19 08:54 61 117/46 08/24/19 08:00 97.4 16 97.4 Labs Laboratory Tests Test 08/23/19 04:00 08/24/19 03:30 White Blood Count 7.1 x10^3/uL (4.0-11.0) 8.3 x10^3/uL (4.0-11.0) Red Blood Count 4.09 x10^6/uL (3.50-5.40) 3.89 x10^6/uL (3.50-5.40) Hemoglobin 11.7 g/dL (12.0-15.5) 11.3 g/dL (12.0-15.5) Hematocrit 35.3 % (36.0-47.0) 33.5 % (36.0-47.0) Mean Corpuscular Volume 86 fL (79-100) 86 fL (79-100) Mean Corpuscular Hemoglobin 29 pg (25-35) 29 pg (25-35) Mean Corpuscular Hemoglobin Concent 33 g/dL (31-37) 34 g/dL (31-37) Red Cell Distribution Width 14.4 % (11.5-14.5) 14.1 % (11.5-14.5) Platelet Count 226 x10^3/uL (140-400) 222 x10^3/uL (140-400) Neutrophils (%) (Auto) 56 % (31-73) 58 % (31-73) Lymphocytes (%) (Auto) 34 % (24-48) 31 % (24-48) Monocytes (%) (Auto) 8 % (0-9) 9 % (0-9) Eosinophils (%) (Auto) 2 % (0-3) 1 % (0-3) Basophils (%) (Auto) 1 % (0-3) 1 % (0-3) Neutrophils # (Auto) 3.9 x10^3/uL (1.8-7.7) 4.8 x10^3/uL (1.8-7.7) Lymphocytes # (Auto) 2.4 x10^3/uL (1.0-4.8) 2.6 x10^3/uL (1.0-4.8) Monocytes # (Auto) 0.5 x10^3/uL (0.0-1.1) 0.7 x10^3/uL (0.0-1.1) Eosinophils # (Auto) 0.1 x10^3/uL (0.0-0.7) 0.1 x10^3/uL (0.0-0.7) Basophils # (Auto) 0.1 x10^3/uL (0.0-0.2) 0.1 x10^3/uL (0.0-0.2) Sodium Level 143 mmol/L (136-145) 142 mmol/L (136-145) Potassium Level 3.4 mmol/L (3.5-5.1) 3.8 mmol/L (3.5-5.1) Chloride Level 105 mmol/L (98-107) 106 mmol/L (98-107) Carbon Dioxide Level 27 mmol/L (21-32) 29 mmol/L (21-32) Anion Gap 11 (6-14) 7 (6-14) Blood Urea Nitrogen 9 mg/dL (7-20) 10 mg/dL (7-20) Creatinine 0.7 mg/dL (0.6-1.0) 0.8 mg/dL (0.6-1.0) Estimated GFR (Cockcroft-Gault) 87.2 74.7 BUN/Creatinine Ratio 13 (6-20) Glucose Level 83 mg/dL (70-99) 92 mg/dL (70-99) Calcium Level 8.6 mg/dL (8.5-10.1) 8.7 mg/dL (8.5-10.1) Total Bilirubin 0.5 mg/dL (0.2-1.0) Aspartate Amino Transf (AST/SGOT) 16 U/L (15-37) Alanine Aminotransferase (ALT/SGPT) 11 U/L (14-59) Alkaline Phosphatase 82 U/L (46-116) Total Protein 5.7 g/dL (6.4-8.2) Albumin 2.9 g/dL (3.4-5.0) Albumin/Globulin Ratio 1.0 (1.0-1.7) Laboratory Tests Test 08/24/19 03:30 White Blood Count 8.3 x10^3/uL (4.0-11.0) Red Blood Count 3.89 x10^6/uL (3.50-5.40) Hemoglobin 11.3 g/dL (12.0-15.5) Hematocrit 33.5 % (36.0-47.0) Mean Corpuscular Volume 86 fL (79-100) Mean Corpuscular Hemoglobin 29 pg (25-35) Mean Corpuscular Hemoglobin Concent 34 g/dL (31-37) Red Cell Distribution Width 14.1 % (11.5-14.5) Platelet Count 222 x10^3/uL (140-400) Neutrophils (%) (Auto) 58 % (31-73) Lymphocytes (%) (Auto) 31 % (24-48) Monocytes (%) (Auto) 9 % (0-9) Eosinophils (%) (Auto) 1 % (0-3) Basophils (%) (Auto) 1 % (0-3) Neutrophils # (Auto) 4.8 x10^3/uL (1.8-7.7) Lymphocytes # (Auto) 2.6 x10^3/uL (1.0-4.8) Monocytes # (Auto) 0.7 x10^3/uL (0.0-1.1) Eosinophils # (Auto) 0.1 x10^3/uL (0.0-0.7) Basophils # (Auto) 0.1 x10^3/uL (0.0-0.2) Sodium Level 142 mmol/L (136-145) Potassium Level 3.8 mmol/L (3.5-5.1) Chloride Level 106 mmol/L (98-107) Carbon Dioxide Level 29 mmol/L (21-32) Anion Gap 7 (6-14) Blood Urea Nitrogen 10 mg/dL (7-20) Creatinine 0.8 mg/dL (0.6-1.0) Estimated GFR (Cockcroft-Gault) 74.7 Glucose Level 92 mg/dL (70-99) Calcium Level 8.7 mg/dL (8.5-10.1) Allergies Allergies Coded Allergies Type Severity Reaction Last Updated Verified Penicillins Allergy Intermediate hives 06/26/15 Yes amoxicillin Allergy Intermediate rash 06/26/15 Yes ceftriaxone Allergy Intermediate hives 06/26/15 Yes codeine Allergy Intermediate hives 12/29/17 Yes doxycycline Allergy Intermediate rash 06/26/15 Yes egg Allergy Intermediate hives 06/26/15 Yes morphine Allergy Intermediate rash 12/29/17 Yes Disposition/Orders: D/C to Home Hemodynamically unstable?: No Is patient in severe pain?: Yes Is NPO status required?: No SHAHBAZ TELLEZ MD Aug 24, 2019 10:55
[2019-08-24 11:00] VITALS: BP 120/49
[2019-08-24] MEDS ORDERED: MAG30ORA2 PO (11:00)
[2019-08-24] MEDS ORDERED: ACET325T9 PO (11:00)
[2019-08-24] MEDS ORDERED: POTA20TA4 PO (11:00)
[2019-08-24] MEDS ORDERED: PSYL3.4P PO (11:00)
[2019-08-24] MEDS ORDERED: DOCU-153 PO (11:00)
--- NOTE | 2019-08-24 11:01 | DISCH ---
DISCHARGE INSTRUCTIONS Condition on Discharge Condition on Discharge: Stable Activity After Discharge Activity Instructions for Disc: Activity as tolerated Lifting Instructions after Dis: No heavy lifting, No pulling or pushing Driving Instructions after Dis: Do not drive today Weight Bearing Status after Di: Full weight bearing Diet after Discharge Diet after Discharge: Cardiac, Regular Diet Texture: Regular Checks after Discharge Checks after discharge: Check blood press - daily Contacting the DR. after DC Call your doctor for: If your condition worsens SHAHBAZ TELLEZ MD Aug 24, 2019 11:01
[2019-08-24 12:52] VITALS: BP 120/49
[2019-08-24] MEDS: METOPROLOL TART IMMED RELEASE 25 MG TABLET. PO SCH (12:52)
--- NOTE | 2019-08-24 13:20 | NUR ---
Pt ambulated to ER entrance with Samantha CHERRY, to her vehicle. Telemonitor, education given to patient, IV removed. All belongings with patient. Pt has her keys.
== END 2019-08-24 13:20 | disposition home or self-care (01) | DRG 921 ==
LOC: ER 19:07 → ED HOLD 20:30 → 6 SOUTH 08-22 18:43
PROVIDERS: ADMIT Family Medicine; ATTEND Family Medicine
DX: K91.840 Postprocedural hemorrhage of a digestive system organ or structure following a digestive system procedure (principal); K57.90 Diverticulosis of intestine, part unspecified, without perforation or abscess without bleeding; K21.9 Gastro-esophageal reflux disease without esophagitis; I25.10 Atherosclerotic heart disease of native coronary artery without angina pectoris; M79.7 Fibromyalgia; G43.909 Migraine, unspecified, not intractable, without status migrainosus; R07.9 Chest pain, unspecified; E87.6 Hypokalemia; M19.90 Unspecified osteoarthritis, unspecified site; K21.0 Gastro-esophageal reflux disease with esophagitis; F17.210 Nicotine dependence, cigarettes, uncomplicated; F41.9 Anxiety disorder, unspecified; K64.8 Other hemorrhoids; E66.01 Morbid (severe) obesity due to excess calories; K64.0 First degree hemorrhoids; M47.9 Spondylosis, unspecified; F32.9 Major depressive disorder, single episode, unspecified; E78.5 Hyperlipidemia, unspecified; D64.9 Anemia, unspecified; E53.8 Deficiency of other specified B group vitamins; G89.29 Other chronic pain; K63.5 Polyp of colon; K64.4 Residual hemorrhoidal skin tags; Y83.8 Other surgical procedures as the cause of abnormal reaction of the patient, or of later complication, without mention of misadventure at the time of the procedure; R63.4 Abnormal weight loss; M54.5 Low back pain; J44.9 Chronic obstructive pulmonary disease, unspecified; I10 Essential (primary) hypertension; Z87.11 Personal history of peptic ulcer disease; I25.2 Old myocardial infarction; Z90.49 Acquired absence of other specified parts of digestive tract; Z98.51 Tubal ligation status; Z98.891 History of uterine scar from previous surgery; Z87.19 Personal history of other diseases of the digestive system; Z82.49 Family history of ischemic heart disease and other diseases of the circulatory system; Z82.0 Family history of epilepsy and other diseases of the nervous system; Z80.9 Family history of malignant neoplasm, unspecified; Z79.899 Other long term (current) drug therapy; Z79.82 Long term (current) use of aspirin; Z88.5 Allergy status to narcotic agent; Z88.0 Allergy status to penicillin; Z88.1 Allergy status to other antibiotic agents; Z91.012 Allergy to eggs; Z68.39 Body mass index [BMI] 39.0-39.9, adult; Z82.3 Family history of stroke; Z87.440 Personal history of urinary (tract) infections
CPT/HCPCS: 36415; 80048; 80053; 81001; 83690; 84484; 85025; 85610; 85730; 86850; 86900; 86901; 93005; 99285; C9113; J2405; J3010; J7030; G0378

== ENCOUNTER 2019-10-11 11:26 | Emergency (ER) | payer BC ==
[~2019-10-11] VITALS: Ht 160 cm; Wt 100.9 kg
[~2019-10-11 11:26] MED LIST changes: +ACET325T9 PO; +ALBU2.5V8 INH; +BUDE10.2 IH; +CLON1TAB12 PO; +CYAN25002 SL; +DICY10CA3 PO; +DOCU-153 PO; +DULO30CA44 PO; +GABA300C18 PO; +MAG30ORA2 PO; +ONDA8TAB15 PO; +POTA20TA4 PO; +PSYL3.4P PO; +SIMV20TA18 PO
[2019-10-11 11:45] VITALS: BP 108/65
[2019-10-11] MEDS ORDERED: fentaNYL PF VIAL 100 MCG/2 ML VIAL IM ONE (12:00)
--- NOTE | 2019-10-11 12:00 | PHYS DOC ---
Past Medical History Past Medical History: Asthma, CAD, COPD, Fibromyalgia, GI Bleed, Hypertension, [place] Additional Past Medical Histor: ulcer, DDD, back pain (ROSEY PACHECO APRN) Past Surgical History: Cholecystectomy, , Tubal ligation, Other Additional Past Surgical Histo: Hernia repair x3. Coronary Angiogram x3- no stents (clean) (ROSEY PACHECO APRN) Smoking Status: Current Every Day Smoker Alcohol Use: Rarely Drug Use: None (ROSEY PACHECO APRN) Adult General Chief Complaint Chief Complaint: MECHANICAL FALL HPI HPI Patient is a 53 year old female who presents with a fall out of bed. The patient was laying in bed with her grandson and dog and somehow the dog pushed her out of bed. The patient states she says left shoulder pain after the fall and she also has been having lumbar back pain. The patient does have chronic lumbar back pain however and was scheduled for an elective surgery on L4 and L5 that was canceled due to the coronavirus. She states that she is having pain that is 9 out of 10 in severity. Denies fever cough shortness of breath. Complete ROS were reviewed and found to be within normal limits, except as documented in the HPI (ROSEY PACHECO APRN) Current Medications Current Medications Current Medications Medications (Trade) Dose Ordered Sig/Maggie Start Time Stop Time Status Last Admin Dose Admin Fentanyl Citrate (Fentanyl 2ml Vial) 75 mcg 1X ONCE 10/11/19 12:00 10/11/19 12:01 DC 10/11/19 12:08 75 MCG (GREYPALLIDOT E DO) Allergies Allergies Allergies Coded Allergies Type Severity Reaction Last Updated Verified Penicillins Allergy Intermediate hives 06/26/15 Yes amoxicillin Allergy Intermediate rash 06/26/15 Yes ceftriaxone Allergy Intermediate hives 06/26/15 Yes codeine Allergy Intermediate hives 12/29/17 Yes doxycycline Allergy Intermediate rash 06/26/15 Yes egg Allergy Intermediate hives 06/26/15 Yes morphine Allergy Intermediate rash 12/29/17 Yes (GOLLAPALLIDOT E DO) Physical Exam Physical Exam Constitutional: Well developed, well nourished, no acute distress, non-toxic appearance. [] HENT: Normocephalic, atraumatic Back: Tenderness to lumbar spine with no step-offs. Extremities: Tenderness to left shoulder, ROM intact, no edema. [] Neurologic: Alert and oriented X 3, normal motor function, normal sensory function, no focal deficits noted. [] Psychologic: Affect normal, judgement normal, mood normal. [] (ROSEY PACHECO APRN) Current Patient Data Vital Signs Vital Signs Date Time Temp Pulse Resp B/P (MAP) Pulse Ox O2 Delivery O2 Flow Rate FiO2 10/11/19 12:08 20 96 Room Air 10/11/19 11:45 84 10/11/19 11:31 97.7 131/70 (90) 97.7 (DOT MUNOZ DO) EKG EKG [] (ROSEY PACHECO APRN) Radiology/Procedures Radiology/Procedures [][facility] [address] [place] [address] IMAGING REPORT Signed PATIENT: DOMINGO BATES JACCOUNT: [id number] : 1965 LOCATION: ER AGE: 53 SEX: F EXAM STATUS: REG ER ORD. PHYSICIAN: ROSEY PACHECO APRN REASON: shoulder pain PROCEDURE: SHOULDER 2+V LEFT SHOULDER 2+V LEFT History: Trauma. Pain. Technique: 3 views left shoulder. Comparison: None. Findings: Normal alignment of the glenohumeral and acromial clavicular joints. No fracture. Mild left glenohumeral DJD. Impression: 1. No acute osseous abnormality. Electronically signed by: Tylor Lu DO (10/11/2019 12:34 PM) [id number] DICTATED and SIGNED BY: TYLOR LU DO DATE: 10/11/19 1234 (ROSEY PACHECO APRN) Course & Med Decision Making Course & Med Decision Making Pertinent Labs and Imaging studies reviewed. (See chart for details) Patient had a low mechanism fall. Will get a shoulder x-ray as patient is complaining of shoulder pain. Discussed with the patient that she has chronic lumbar pain and do not feel at the moment that the risks outweigh the benefits in getting a CT of her lumbar spine. The patient already has a surgery scheduled for this area of the spine and management likely would not change based off the CT. Imaging is unremarkable will discharge patient home. (ROSEY PACHECO APRN) Dragon Disclaimer Dragon Disclaimer This electronic medical record was generated, in whole or in part, using a voice recognition dictation system. (ROSEY PACHECO APRN) Attending Signature I have participated in the care of this patient and I have reviewed and agree with all pertinent clinical information above including history, exam, and recommendations. (DOT MUNOZ DO) Departure Departure Impression: Primary Impression: Fall Disposition: 01 HOME, SELF-CARE Condition: STABLE Referrals: PK JAQUEZ MD (PCP) Patient Instructions: Fall Prevention and Home Safety Additional Instructions: Thank you for visiting [facility]. We appreciate you trusting us with your care. If any additional problems come up don't hesitate to return to visit us. Please follow up with your primary care provider so they can plan additional care if needed and know about the problem that you had. If symptoms worsen come back to the Emergency Department. Any concerning symptoms that start such as chest pain, shortness of air, weakness or numbness on one side of the body, running high fevers or any other concerning symptoms return to the ER. Please follow-up with your surgeon. Problem Qualifiers Primary Impression: Fall Encounter type: initial encounter Qualified Codes: W19.XXXA - Unspecified fall, initial encounter ROSEY PACHECO APRN Oct 11, 2019 12:00 DOT MUNOZ DO Oct 11, 2019 17:36
--- NOTE | 2019-10-11 12:37 | RAD ---
SHOULDER 2+V LEFT History: Trauma. Pain. Technique: 3 views left shoulder. Comparison: None. Findings: Normal alignment of the glenohumeral and acromial clavicular joints. No fracture. Mild left glenohumeral DJD. Impression: 1. No acute osseous abnormality. Electronically signed by: Tylor Lu DO (10/11/2019 12:34 PM) [id number]
== END 2019-10-11 12:45 | disposition home or self-care (01) ==
LOC: ER 11:26
DX: G89.11 Acute pain due to trauma (principal); M25.512 Pain in left shoulder; M54.5 Low back pain; J44.9 Chronic obstructive pulmonary disease, unspecified; M79.7 Fibromyalgia; I11.9 Hypertensive heart disease without heart failure; I25.2 Old myocardial infarction; F17.200 Nicotine dependence, unspecified, uncomplicated; Z90.49 Acquired absence of other specified parts of digestive tract; Z98.51 Tubal ligation status; Z98.890 Other specified postprocedural states; Z88.0 Allergy status to penicillin; Z88.1 Allergy status to other antibiotic agents; Z88.5 Allergy status to narcotic agent; Z88.6 Allergy status to analgesic agent; Z91.012 Allergy to eggs; Z88.8 Allergy status to other drugs, medicaments and biological substances
CPT/HCPCS: 73030; 96372; 99283; J3010

== ENCOUNTER 2019-11-17 14:11 | Emergency (ER) | payer BC ==
[~2019-11-17] VITALS: Ht 160 cm; Wt 101.0 kg
[~2019-11-17 14:11] MED LIST changes: -MOXI3DRO2 EACHEYE; +MOXI3DRO22 EACHEYE; +PROM118S10 PO; -PROM118S9 PO
[2019-11-17] MEDS ORDERED: fentaNYL PF VIAL 100 MCG/2 ML VIAL IV ONE (15:15)
[2019-11-17] MEDS ORDERED: IV NORMAL SALINE 1000ML BAG 1,000 ML IV ONE (15:15)
[2019-11-17] MEDS ORDERED: ONDANSETRON PF 4 MG/2 ML VIAL. IV ONE ×2 (15:15→15:30)
[2019-11-17 15:39] LABS: HEMOGLOBIN 12.6 g/dL (12.0-15.5); RED BLOOD COUNT 4.33 x10^6/uL (3.50-5.40); WHITE BLOOD COUNT 8.1 x10^3/uL (4.0-11.0)
[2019-11-17 15:40] LABS: HEMATOCRIT 37.8 % (36.0-47.0); MEAN CORPUSCULAR HEMOGLOBIN 29 pg (25-35); MEAN CORPUSCULAR HGB CONC 33 g/dL (31-37); MEAN CORPUSCULAR VOLUME 87 fL (79-100); RED CELL DISTRIBUTION WIDTH 14.3 % (11.5-14.5)
[2019-11-17 15:41] LABS: BASO # 0.1 x10^3/uL (0.0-0.2); BASO % 1 % (0-3); EOS # 0.2 x10^3/uL (0.0-0.7); EOS % 2 % (0-3); LYMPH # 3.2 x10^3/uL (1.0-4.8); LYMPH % 39 % (24-48); MONO # 0.6 x10^3/uL (0.0-1.1); MONO % 8 % (0-9); NEUT % 50 % (31-73); PLATELET COUNT 298 x10^3/uL (140-400)
[2019-11-17 16:04] LABS: ALBUMIN 3.5 g/dL (3.4-5.0); ALBUMIN/GLOBULIN RATIO 1.1 (1.0-1.7); TOTAL PROTEIN 6.8 g/dL (6.4-8.2)
[2019-11-17 16:05] LABS: CALCIUM 8.7 mg/dL (8.5-10.1); CREATININE 0.8 mg/dL (0.6-1.0); GFR 74.5; MAGNESIUM 1.8 mg/dL (1.8-2.4); POTASSIUM 3.8 mmol/L (3.5-5.1); TOTAL BILIRUBIN 0.5 mg/dL (0.2-1.0)
[2019-11-17] MEDS ORDERED: CONTRAST GIVEN. MC PRN (16:15)
[2019-11-17] MEDS ORDERED: IOHEXOL 300 MG/ML 100ML VIAL. IV ONE (16:15)
[2019-11-17 16:52] VITALS: BP 143/79
--- NOTE | 2019-11-17 16:57 | RAD ---
CT ABD PELV W/ IV CONTRST ONLY History: Abdominal pain Comparison: 08/15/2017 Technique: After administration of intravenous contrast, helical CT of the abdomen and pelvis was performed from the lung bases through the ischial tuberosities. Coronal and sagittal reconstructions were obtained. 75 mL of Omnipaque 300 were used. One or more of the following dose reduction techniques were utilized: Automated exposure control (AEC), Adjustment of mA and/or kV according to patient size, Use of iterative reconstruction technique such as ASiR, CT scan done according to ALARA and image gently/image wisely Abdomen Findings: The visualized lung bases are clear. The liver, pancreas, spleen, and bilateral adrenal glands are normal. Cholecystectomy. Symmetric renal enhancement. There is no focal renal mass. There is no hydronephrosis. The visualized loops of small bowel are normal. The visualized loops of large bowel are normal. There is no evidence of bowel obstruction. Appendix is normal. There is no free fluid. There is no mesenteric or retroperitoneal adenopathy. The abdominal aorta is normal in caliber. Pelvis Findings: Urinary bladder is distended. Uterus is present. There is no pelvic or inguinal adenopathy. Degenerative changes of the spine. IMPRESSION: No acute findings. Electronically signed by: Gwyn Poe MD (11/17/2019 4:53 PM) [facility]
--- NOTE | 2019-11-17 16:57 | RAD ---
CHEST AP ONLY INDICATION: Chest pain. COMPARISON STUDY: 07/26/2018. FINDINGS: Lungs: Normal lung volume. No pulmonary mass or consolidation. The tracheobronchial tree and hilar structures are normal. Pleura: No pleural effusion or pneumothorax. Heart and Mediastinum: The cardiomediastinal silhouette is normal. The great vessels of the thorax are normal. IMPRESSION: No acute cardiopulmonary process. Electronically signed by: Gwyn Poe MD (11/17/2019 4:54 PM) [facility]
--- NOTE | 2019-11-17 17:06 | PHYS DOC ---
Past Medical History Past Medical History: Asthma, CAD, COPD, Fibromyalgia, GI Bleed, Hypertension, NC Additional Past Medical Histor: ulcer, DDD, back pain Past Surgical History: Cholecystectomy, , Tubal ligation, Other Additional Past Surgical Histo: Hernia repair x3. Coronary Angiogram x3- no stents (clean) Smoking Status: Current Every Day Smoker Additional Information: 07/12 PPD Alcohol Use: Rarely Drug Use: None General Adult EDM: Chief Complaint: CHEST PAIN HPI: HPI: Patient is a 54-year-old female with multiple medical problems including fibromyalgia and anxiety along with morbid obesity who states she woke up from a nap with multiple complaints. She had a headache, she had chest pain that radiated up into her shoulder she had abdominal pain that radiated around to her back she had a cough and congestion and she did feel short of breath. She states she normally takes clonazepam for anxiety but she did not take any when she woke up. She denies any fever chills or sweats. She states her cough is been dry there is no hematemesis or hemoptysis [] Review of Systems: Review of Systems: Constitutional: Denies fever or chills. [] Eyes: Denies change in visual acuity. [] HENT: Denies nasal congestion or sore throat. [] Respiratory: Per HPI [] Cardiovascular: Per HPI. [] GI: Per HPI. [] : Denies dysuria. [] Musculoskeletal: Denies back pain or joint pain. [] Integument: Denies rash. [] Neurologic: Denies headache, focal weakness or sensory changes. [] Endocrine: Denies polyuria or polydipsia. [] Lymphatic: Denies swollen glands. [] Psychiatric: Reports extreme anxiety [] Heart Score: HEART Score for Chest Pain: HEART Score for Chest Pain Response (Comments) Value History Slighlty/Non-Suspicious 0 ECG Normal 0 Age >45 - < 65 1 Risk Factors 1 or 2 Risk Factors 1 Troponin < Normal Limit 0 Total 2 Risk Factors: Risk Factors: DM, Current or recent (<one month) smoker, HTN, HLP, family history of CAD, obesity. Risk Scores: Score 0 - 3: 2.5% MACE over next 6 weeks - Discharge Home Score 4 - 6: 20.3% MACE over next 6 weeks - Admit for Clinical Observation Score 7 - 10: 72.7% MACE over next 6 weeks - Early Invasive Strategies Current Medications: Current Medications Medications (Trade) Dose Ordered Sig/Maggie Start Time Stop Time Status Last Admin Dose Admin Fentanyl Citrate (Fentanyl 2ml Vial) 50 mcg 1X ONCE 11/17/19 15:15 11/17/19 15:18 DC 11/17/19 15:30 50 MCG Info (CONTRAST GIVEN -- Rx MONITORING) 1 each PRN DAILY PRN 11/17/19 16:15 11/19/19 16:14 Iohexol (Omnipaque 300 Mg/ml) 75 ml 1X ONCE 11/17/19 16:15 11/17/19 16:16 DC 11/17/19 16:15 75 ML Lorazepam (Ativan Inj) 1 mg 1X ONCE 11/17/19 15:30 11/17/19 15:31 DC 11/17/19 15:34 1 MG Ondansetron HCl (Zofran) 4 mg 1X ONCE 11/17/19 15:30 11/17/19 15:31 DC Sodium Chloride 1,000 ml @ 1,000 mls/hr 1X ONCE 11/17/19 15:15 11/17/19 16:14 DC 11/17/19 15:27 1,000 MLS/HR Allergies: Allergies: Allergies Coded Allergies Type Severity Reaction Last Updated Verified Penicillins Allergy Intermediate hives 06/26/15 Yes amoxicillin Allergy Intermediate rash 06/26/15 Yes ceftriaxone Allergy Intermediate hives 06/26/15 Yes codeine Allergy Intermediate hives 12/29/17 Yes doxycycline Allergy Intermediate rash 06/26/15 Yes egg Allergy Intermediate hives 06/26/15 Yes morphine Allergy Intermediate rash 12/29/17 Yes Physical Exam: PE: Constitutional: Well developed, well nourished, moderate distress, non-toxic appearance. [] HENT: Normocephalic, atraumatic, bilateral external ears normal, oropharynx moist, no oral exudates, nose normal. [] Eyes: PERRLA, EOMI, conjunctiva normal, no discharge. [] Neck: Normal range of motion, no tenderness, supple, no stridor. [] Cardiovascular: Tachycardic no murmur [] Lungs & Thorax: Bilateral breath sounds clear to auscultation [] Abdomen: Morbidly obese, bowel sounds normal, soft, no tenderness, no masses, no pulsatile masses. [] Skin: Warm, dry, no erythema, no rash. [] Back: No tenderness, no CVA tenderness. [] Extremities: No tenderness, no cyanosis, no clubbing, ROM intact, no edema. [] Neurologic: Alert and oriented X 3, normal motor function, normal sensory function, no focal deficits noted. [] Psychologic: Very anxious, screaming and crying but not shedding tears [] Current Patient Data: Labs: Laboratory Tests Test 11/17/19 14:30 White Blood Count 8.1 x10^3/uL (4.0-11.0) Red Blood Count 4.33 x10^6/uL (3.50-5.40) Hemoglobin 12.6 g/dL (12.0-15.5) Hematocrit 37.8 % (36.0-47.0) Mean Corpuscular Volume 87 fL (79-100) Mean Corpuscular Hemoglobin 29 pg (25-35) Mean Corpuscular Hemoglobin Concent 33 g/dL (31-37) Red Cell Distribution Width 14.3 % (11.5-14.5) Platelet Count 298 x10^3/uL (140-400) Neutrophils (%) (Auto) 50 % (31-73) Lymphocytes (%) (Auto) 39 % (24-48) Monocytes (%) (Auto) 8 % (0-9) Eosinophils (%) (Auto) 2 % (0-3) Basophils (%) (Auto) 1 % (0-3) Neutrophils # (Auto) 4.0 x10^3/uL (1.8-7.7) Lymphocytes # (Auto) 3.2 x10^3/uL (1.0-4.8) Monocytes # (Auto) 0.6 x10^3/uL (0.0-1.1) Eosinophils # (Auto) 0.2 x10^3/uL (0.0-0.7) Basophils # (Auto) 0.1 x10^3/uL (0.0-0.2) Sodium Level 140 mmol/L (136-145) Potassium Level 3.8 mmol/L (3.5-5.1) Chloride Level 102 mmol/L (98-107) Carbon Dioxide Level 31 mmol/L (21-32) Anion Gap 7 (6-14) Blood Urea Nitrogen 13 mg/dL (7-20) Creatinine 0.8 mg/dL (0.6-1.0) Estimated GFR (Cockcroft-Gault) 74.5 BUN/Creatinine Ratio 16 (6-20) Glucose Level 91 mg/dL (70-99) Calcium Level 8.7 mg/dL (8.5-10.1) Magnesium Level 1.8 mg/dL (1.8-2.4) Total Bilirubin 0.5 mg/dL (0.2-1.0) Aspartate Amino Transferase (AST) 12 U/L (15-37) L Alanine Aminotransferase (ALT) 16 U/L (14-59) Alkaline Phosphatase 84 U/L (46-116) Troponin I Quantitative < 0.017 ng/mL (0.000-0.055) VL-Vho-N-Type Natriuretic Peptide 61 pg/mL (0-124) Total Protein 6.8 g/dL (6.4-8.2) Albumin 3.5 g/dL (3.4-5.0) Albumin/Globulin Ratio 1.1 (1.0-1.7) Lipase 59 U/L (73-393) L Laboratory Tests 11/17/19 14:30 Laboratory Tests 11/17/19 14:30 Vital Signs: Vital Signs Date Time Temp Pulse Resp B/P (MAP) Pulse Ox O2 Delivery O2 Flow Rate FiO2 11/17/19 14:13 98.2 73 18 114/71 (85) 98 Room Air 98.2 EKG: EKG: EKG: Normal sinus rhythm rate of [address]-T changes [] Radiology/Procedures: Radiology/Procedures: []PROCEDURE: CT ABD PELV W/ IV CONTRST ONLY CT ABD PELV W/ IV CONTRST ONLY History: Abdominal pain Comparison: 08/15/2017 Technique: After administration of intravenous contrast, helical CT of the abdomen and pelvis was performed from the lung bases through the ischial tuberosities. Coronal and sagittal reconstructions were obtained. 75 mL of Omnipaque 300 were used. One or more of the following dose reduction techniques were utilized: Automated exposure control (AEC), Adjustment of mA and/or kV according to patient size, Use of iterative reconstruction technique such as ASiR, CT scan done according to ALARA and image gently/image wisely Abdomen Findings: The visualized lung bases are clear. The liver, pancreas, spleen, and bilateral adrenal glands are normal. Cholecystectomy. Symmetric renal enhancement. There is no focal renal mass. There is no hydronephrosis. The visualized loops of small bowel are normal. The visualized loops of large bowel are normal. There is no evidence of bowel obstruction. Appendix is normal. There is no free fluid. There is no mesenteric or retroperitoneal adenopathy. The abdominal aorta is normal in caliber. Pelvis Findings: Urinary bladder is distended. Uterus is present. There is no pelvic or inguinal adenopathy. Degenerative changes of the spine. IMPRESSION: No acute findings. Impression: PROCEDURE: CHEST AP ONLY CHEST AP ONLY INDICATION: Chest pain. COMPARISON STUDY: 07/26/2018. FINDINGS: Lungs: Normal lung volume. No pulmonary mass or consolidation. The tracheobronchial tree and hilar structures are normal. Pleura: No pleural effusion or pneumothorax. Heart and Mediastinum: The cardiomediastinal silhouette is normal. The great vessels of the thorax are normal. IMPRESSION: No acute cardiopulmonary process. Course & Med Decision Making: Course & Med Decision Making Pertinent Labs and Imaging studies reviewed. (See chart for details) [] Dragon Disclaimer: Dragon Disclaimer: This electronic medical record was generated, in whole or in part, using a voice recognition dictation system. Departure Departure Impression: Primary Impression: Chest pain Qualified Codes: R07.9 - Chest pain, unspecified Additional Impressions: Abdominal pain Qualified Codes: R10.84 - Generalized abdominal pain Anxiety about health Disposition: HOME, SELF-CARE Condition: IMPROVED Referrals: PK JAQUEZ MD (PCP) Patient Instructions: Anxiety and Panic Attacks, Chest Pain (Nonspecific) Additional Instructions: Return to the emergency department with any new or concerning symptoms NEL FIGUEROA DO November 17, 2019 17:06
--- NOTE | 2019-11-18 18:55 | NUR ---
IP: Pt is COVID negative.
--- NOTE | 2019-11-19 07:05 | EKG ---
[facility] [address] [place] [address] Test Date: 2019-11-17 Test Time: 14:22:03 Pat Name: DOMINGO BATES Department: Room: Gender: F Key Sander: : 1965 Requested By: NEL FIGUEROA Order Number: [id number] Reading MD: Naif Mcdonnell Measurements Intervals [place] Rate: 76 P: 42 OK: 154 QRS: 32 QRSD: 76 T: 43 QT: 392 QTc: 445 Interpretive Statements SINUS RHYTHM NORMAL ECG RI6.02 Compared to ECG 08/21/2019 19:28:49 No significant changes Electronically Signed On 11-19-2019 7:51:46 CDT by Naif Mcdonnell
== END 2019-11-17 17:31 | disposition home or self-care (01) ==
LOC: ER 14:11
DX: R07.9 Chest pain, unspecified (principal); Z20.828 Contact with and (suspected) exposure to other viral communicable diseases; R10.84 Generalized abdominal pain; F41.9 Anxiety disorder, unspecified; J44.9 Chronic obstructive pulmonary disease, unspecified; M79.7 Fibromyalgia; I10 Essential (primary) hypertension; I25.2 Old myocardial infarction; F17.200 Nicotine dependence, unspecified, uncomplicated; Z90.49 Acquired absence of other specified parts of digestive tract; Z98.51 Tubal ligation status; E66.01 Morbid (severe) obesity due to excess calories; Z68.39 Body mass index [BMI] 39.0-39.9, adult; Z88.0 Allergy status to penicillin; Z88.1 Allergy status to other antibiotic agents; Z88.8 Allergy status to other drugs, medicaments and biological substances; Z88.5 Allergy status to narcotic agent; Z91.012 Allergy to eggs
CPT/HCPCS: 36415; 71045; 74177; 80053; 83690; 83735; 83880; 84443; 84484; 85025; 87040; 87635; 93005; 96374; 96375; 99285; J2060; J2405; J3010; J7030; Q9967

== ENCOUNTER → 2020-06-18 | Outpatient (CLI) | payer BC ==
--- NOTE | 2020-06-18 12:08 | RESP ---
DATE OF SERVICE: 06/18/2020 PULMONARY FUNCTION TEST ATTENDING PHYSICIAN: Brent Davey MD. The patient's FVC was 2.79 which is 87% predicted, FEV1 2.16 which is 86% predicted. The FEV1/FVC ratio was normal. Total lung capacity was not performed. Diffusion capacity was 135% predicted. IMPRESSION: 1. Normal spirometry with no evidence of obstructive airway disease. 2. No bronchodilators given. 3. Increased diffusion capacity. DEB HARTMANN MD DR: KEN/noemi JOB#: [id number] / [id number]
== END ==
LOC: PF 09:43
PROVIDERS: ATTEND Family Medicine
DX: Z01.818 Encounter for other preprocedural examination (principal); R94.2 Abnormal results of pulmonary function studies
CPT/HCPCS: 94010; 94726; 94729